=== PATIENT | male | born 1970 | race Caucasian/White ===

== ENCOUNTER 2017-09-04 12:09 | Emergency (ER) | payer SELFPAY ==
[2017-09-04 12:59] LABS: Absolute Lymphocytes (CBC) 2.1 K/uL (0.7-4.9); Absolute Monocytes 0.3 K/uL (0.1-1.3); Absolute Neutrophil 2.1 K/uL (1.8-8.0); Basophils % 0.8 % (0-1.3); Eosinophils % 0.9 % (0-4.4); Hematocrit 48.8 % (39.6-49.0); Lymphocytes % 45.4 % (15.3-44.8); MCH 28.4 pg (27.0-35.0); MCV 84.3 fL (80-100); MPV 8.1 fL (7.6-11.3); Monocytes % 7.2 % (3.3-12.3); RBC Red Blood Cell Count 5.79 M/uL (4.33-5.43)
[2017-09-04 13:16] LABS: Bicarbonate 27 mEq/L (21-31); Glucose Level 289 mg/dL (65-120); Lipase 19 U/L (22-51); Potassium 3.8 mEq/L (3.6-5.0); Sodium Level 134 mEq/L (135-145)
[2017-09-04 13:22] LABS: ALT/SGPT 37 IU/L (10-60); AST/SGOT 19 IU/L (10-42); Albumin 4.1 g/dL (3.2-5.5); Alkaline Phosphatase 71 IU/L (42-121); BUN Blood Urea Nitrogen 13 mg/dL (6-20); Bilirubin Direct 0.2 mg/dL (0-0.2); Bilirubin Total 1.2 mg/dL (0.3-1.2); Creatine Phosphokinase 78 IU/L (22-269); Protein, Total 7.3 g/dL (6.0-8.3)
[2017-09-04 13:24] LABS: CKMB Creatine Kinase MB 2.1 ng/ml (0.3-4.0)
--- NOTE | 2017-09-04 13:38 | RAD REPORT ---
EXAM DESCRIPTION: RAD - Chest Single View - 09/04/2017 1:31 pm CLINICAL HISTORY: Chest pain. COMPARISON: None. FINDINGS: Portable technique limits examination quality. The lungs are grossly clear. The heart is normal in size. No displaced fractures. IMPRESSION: No acute intrathoracic process suspected.
--- NOTE | 2017-09-04 15:40 | EDPHYS ---
Physician Documentation [facility] Name: Eleazar Galvan Sr Age: 46 yrs Sex: Male : 1970 Arrival Date: 09/04/2017 Time: 12:10 Bed 18 Private MD: ED Physician Johnny Hansen HPI: 09/04 12:39 This 46 yrs old Male presents to ER via Ambulatory with complaints of rn Shortness Of Breath, Nausea, Chest Pain. 12:40 The patient or guardian reports chest pain that is located primarily in the substernal rn area. Onset: yesterday. The pain radiates to The chest pain is described as aching, sharp. Duration: The patient or guardian reports multiple episodes, that are intermittent. Modifying factors: The symptoms are alleviated by nothing. the symptoms are aggravated by nothing. Severity of pain: At its worst the pain was mild in the emergency department the pain is unchanged. The patient has experienced a previous episode. REports sharp/achy chest pain, since yesterday, radiates to left back, no tearing sensation, no fever/cough, + mild sob, assoc with nausea, states previous [place] in past, he doesn't recall what other [place] felt like. . Historical: - Allergies: 12:20 No Known Allergies; hb - Home Meds: 12:20 Metoprolol Tartrate Oral [Active]; Lisinopril Oral [Active]; Hydrochlorothiazide Oral hb [Active]; aspirin 81 mg Oral chew 1 tab once daily [Active]; Clonidine Oral [Active]; Plavix 75 mg Oral tab 1 tab once daily [Active]; - PMHx: 12:20 Myocardial infarction; hb - PSHx: 12:20 Heart stents; hb - Immunization history:: Adult Immunizations up to date. - Social history:: Smoking status: Patient/guardian denies using tobacco. - Family history:: not pertinent. - Hospitalizations: : No recent hospitalization is reported. ROS: 12:40 Constitutional: Negative for fever, chills, and weight loss, Eyes: Negative for injury, rn pain, redness, and discharge, Neck: Negative for injury, pain, and swelling, Cardiovascular: Negative for palpitations, and edema, Respiratory: Negative for cough, wheezing, and pleuritic chest pain, Abdomen/GI: Negative for abdominal pain, vomiting, diarrhea, and constipation, Back: Negative for injury and pain, MS/Extremity: Negative for injury and deformity, Skin: Negative for injury, rash, and discoloration, Neuro: Negative for headache, weakness, numbness, tingling, and seizure. Exam: 12:40 Constitutional: This is a well developed, well nourished patient who is awake, alert, rn and in no acute distress. Pt sleeping when I arrived. Head/Face: Normocephalic, atraumatic. Eyes: Pupils equal round and reactive to light, extra-ocular motions intact. Lids and lashes normal. Conjunctiva and sclera are non-icteric and not injected. Cornea within normal limits. Periorbital areas with no swelling, redness, or edema. Neck: Trachea midline, no thyromegaly or masses palpated, and no cervical lymphadenopathy. Supple, full range of motion without nuchal rigidity, or vertebral point tenderness. No Meningismus. Cardiovascular: Regular rate and rhythm with a normal S1 and S2. No gallops, murmurs, or rubs. Normal PMI, no JVD. No pulse deficits. Respiratory: Lungs have equal breath sounds bilaterally, clear to auscultation and percussion. No rales, rhonchi or wheezes noted. No increased work of breathing, no retractions or nasal flaring. Abdomen/GI: Soft, non-tender, with normal bowel sounds. No distension or tympany. No guarding or rebound. No evidence of tenderness throughout. Back: No spinal tenderness. No costovertebral tenderness. Full range of motion. Skin: Warm, dry with normal turgor. Normal color with no rashes, no lesions, and no evidence of cellulitis. MS/ Extremity: Pulses equal, no cyanosis. Neurovascular intact. Full, normal range of motion. Equal circumference. Neuro: Awake and alert, GCS 15, oriented to person, place, time, and situation. Cranial nerves II-XII grossly intact. Motor strength 5/5 in all extremities. Sensory grossly intact. Vital Signs: 12:20 BP 140 / 106; Pulse 86; Resp 16; Temp 98; Pulse Ox 100% on R/A; Weight 83.91 kg; Height hb 5 ft. 9 in. (175.26 cm); Pain 6/10; 13:30 BP 138 / 98; Pulse 60; Resp 18; Pulse Ox 100% on R/A; hj 14:17 BP 159 / 107; Pulse 61; Resp 18; Pulse Ox 100% on R/A; hj 14:21 BP 145 / 97; Pulse 65; Resp 18; Pulse Ox 100% on R/A; hj 16:19 BP 138 / 95; Pulse 66; Resp 18; Pulse Ox 100% on R/A; hj 12:20 Body Mass Index 27.32 (83.91 kg, 175.26 cm) hb MDM: 12:24 Patient medically screened. rn 15:35 Differential diagnosis: acute pericarditis, anxiety, costochondritis, esophagitis, rn gastritis, gastroesophageal reflux disease (GERD), pleurisy, pneumothorax. Data reviewed: vital signs, nurses notes, lab test result(s), EKG, radiologic studies, and as a result, I will discharge patient. Special discussion: Based on the patient's history, exam, and Dx evaluation, there is no indication for emergent intervention or inpatient Tx. It is understood by the patient/guardian that if the Sx's persist or worsen they need to return immediately for re-evaluation. I discussed with the patient/guardian in detail that at this point there is no indication for admission to the hospital. It is understood, however, that if the symptoms persist or worsen the patient needs to return immediately for re-evaluation. 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 . 09/04 12:30 Order name: Basic Metabolic Panel; Complete Time: 13: rn 09/04 12:30 Order name: BNP; Complete Time: : rn 09/04 12:30 Order name: CBC with Diff; Complete Time: : rn 09/04 12:30 Order name: Ckmb; Complete Time: : rn 09/04 12:30 Order name: CPK; Complete Time: : rn 09/04 12:30 Order name: LFT's; Complete Time: : rn 09/04 12:30 Order name: Troponin (emerg Dept Use Only); Complete Time: : rn 09/04 12:30 Order name: XRAY Chest (1 view); Complete Time: 13:45 rn 09/04 12:30 Order name: EKG; Complete Time: 12:30 rn 09/04 12:30 Order name: Cardiac monitoring; Complete Time: 12:34 rn 09/04 12:30 Order name: EKG - Nurse/Tech; Complete Time: 12:53 rn 09/04 12:30 Order name: IV Saline Lock; Complete Time: 12:53 rn 09/04 12:30 Order name: D-Dimer; Complete Time: 13:26 rn 09/04 12:30 Order name: Lipase; Complete Time: 13:26 rn 09/04 12:30 Order name: Labs collected and sent; Complete Time: 12:53 rn 09/04 12:30 Order name: O2 Per Protocol; Complete Time: 12:34 rn 09/04 12:30 Order name: O2 Sat Monitoring; Complete Time: 12:34 rn Administered Medications: No medications were administered Disposition: 09/04/17 15:39 Discharged to Home. Impression: Chest pain, unspecified, Hypertension. - Condition is Stable. - Discharge Instructions: Nonspecific Chest Pain, Hypertension. - Prescriptions for amlodipine 10 mg Oral tablet - take 1 tablet by ORAL route once daily; 60 tablet. Plavix 75 mg Oral Tablet - take 1 tablet by ORAL route once daily; 60 tablet. - Medication Reconciliation Form, Thank You Letter, Antibiotic Education, Prescription Opioid Use form. - Follow up: Private Physician; When: As needed; Reason: Recheck today's complaints, Re-evaluation by your physician. - Problem is new. - Symptoms have improved. Signatures: Dispatcher [employer] EDJohnny Bermudez MD MD rn Joaquin, Henry, RN RN hj Baxter, Heather, RN RN
--- NOTE | 2017-09-04 15:40 | ER ---
Nurse's Notes [facility] Name: Eleazar Galvan Sr Age: 46 yrs Sex: Male : 1970 Arrival Date: 09/04/2017 Time: 12:10 Bed 18 Private MD: Diagnosis: Chest pain, unspecified;Hypertension Presentation: 09/04 12:17 Presenting complaint: Left sided chest pain that radiates to left upper back, SOB, and hb nausea that started today at 1000 while in bed. Hx SC + stent placement 2016. Transition of care: patient was not received from another setting of care. Onset of symptoms was September 04, 2017 at 10:00. Care prior to arrival: None. 12:17 Method Of Arrival: Ambulatory hb 12:17 Acuity: AURELIA 3 hb Triage Assessment: 12:33 General: Appears in no apparent distress. uncomfortable, Behavior is calm, cooperative, hj appropriate for age. Respiratory: Reports shortness of breath Onset: The symptoms/episode began/occurred the patient has mild shortness of breath. Historical: - Allergies: 12:20 No Known Allergies; hb - Home Meds: 12:20 Metoprolol Tartrate Oral [Active]; Lisinopril Oral [Active]; Hydrochlorothiazide Oral hb [Active]; aspirin 81 mg Oral chew 1 tab once daily [Active]; Clonidine Oral [Active]; Plavix 75 mg Oral tab 1 tab once daily [Active]; - PMHx: 12:20 Myocardial infarction; hb - PSHx: 12:20 Heart stents; hb - Immunization history:: Adult Immunizations up to date. - Social history:: Smoking status: Patient/guardian denies using tobacco. - Family history:: not pertinent. - Hospitalizations: : No recent hospitalization is reported. Screenin:32 Abuse screen: Denies threats or abuse. Denies injuries from another. Nutritional hj screening: No deficits noted. Tuberculosis screening: No symptoms or risk factors identified. Fall Risk None identified. Assessment: 12:32 Pain: Complains of pain in chest Pain radiates to back. Cardiovascular: Rhythm is hj regular. Respiratory: Airway is patent Respiratory effort is even, unlabored, Respiratory pattern is regular, symmetrical, Breath sounds are clear. 13:30 Reassessment: Patient and/or family updated on plan of care and expected duration. Pain hj level reassessed. Patient is alert, oriented x 3, equal unlabored respirations, skin warm/dry/pink. Patient states feeling better. Patient states symptoms have improved. Vital Signs: 12:20 BP 140 / 106; Pulse 86; Resp 16; Temp 98; Pulse Ox 100% on R/A; Weight 83.91 kg; Height hb 5 ft. 9 in. (175.26 cm); Pain 6/10; 13:30 BP 138 / 98; Pulse 60; Resp 18; Pulse Ox 100% on R/A; hj 14:17 BP 159 / 107; Pulse 61; Resp 18; Pulse Ox 100% on R/A; hj 14:21 BP 145 / 97; Pulse 65; Resp 18; Pulse Ox 100% on R/A; hj 16:19 BP 138 / 95; Pulse 66; Resp 18; Pulse Ox 100% on R/A; hj 12:20 Body Mass Index 27.32 (83.91 kg, 175.26 cm) hb ED Course: 12:10 Patient arrived in ED. as 12:19 Triage completed. hb 12:20 Arm band placed on left wrist. hb 12:24 Johnny Hansen MD is Attending Physician. rn 12:32 Rafy Rodney, JEROME is Primary Nurse. hj 12:33 Patient has correct armband on for positive identification. Placed in gown. Bed in low hj position. Call light in reach. Side rails up X 1. Adult w/ patient. 12:45 Initial lab(s) drawn, by me, sent to lab. Inserted saline lock: 22 gauge in right hj antecubital area, using aseptic technique. Blood collected. 13:12 X-ray completed. Portable x-ray completed in exam room. Patient tolerated procedure kp1 well. 13:31 XRAY Chest (1 view) In Process Unspecified. EDMS 16:18 No provider procedures requiring assistance completed. IV discontinued, intact, hj bleeding controlled, No redness/swelling at site. Pressure dressing applied. Administered Medications: No medications were administered Outcome: 15:39 Discharge ordered by . rn 16:18 Discharged to home ambulatory. hj 16:18 Condition: stable 16:18 Discharge instructions given to patient, Instructed on discharge instructions, follow up and referral plans. medication usage, Demonstrated understanding of instructions, follow-up care, medications, Prescriptions given X 2. 16:19 Patient left the ED. hj Signatures: Dispatcher [employer] EDJazzmine Magaña as Hansen, Johnny, MD MD rn Rashaun, Rafy, RN RN Mary Alice Bishop RN RN Gris Mtz 1
--- NOTE | 2017-09-05 10:24 | EKG ---
Test Date: 2017-09-04 Test Time: 12:38:46 Bench Worker: JOSE MEASUREMENT RESULTS: Intervals: Rate: 56 NJ: 144 QRSD: 90 QT: 406 QTc: 391 Dozier: P: 2 NJ: 144 QRS: 5 T: -22 INTERPRETIVE STATEMENTS: Sinus bradycardia with sinus arrhythmia Inferior infarct, age undetermined Abnormal ECG No previous ECG available for comparison Electronically Signed On 09-05-17 10:23:31 CDT by Ulisses Alvarez
== END 2017-09-04 16:19 | disposition home or self-care (01) ==
LOC: ER 12:09
DX: I10 Essential (primary) hypertension (principal); I25.2 Old myocardial infarction; Z95.818 Presence of other cardiac implants and grafts; Z79.82 Long term (current) use of aspirin; Z79.01 Long term (current) use of anticoagulants
CPT/HCPCS: 36415; 71045; 80048; 80076; 82550; 82553; 83690; 83880; 84484; 85025; 85379; 93005; 99284

== ENCOUNTER 2023-06-06 11:21 | Inpatient (IN) | payer OTHER, SELFPAY ==
[2023-06-06 11:54] LABS: Absolute Lymphocytes (CBC) 1.1 K/uL (0.7-4.9); Hematocrit 37.9 % (39.6-49.0); Lymphocytes % 20.8 % (15.3-44.8); MCV 83.2 fL (80-100); MPV 7.6 fL (7.6-11.3); Platelets 233 thou/uL (152-406); RBC Red Blood Cell Count 4.55 M/uL (4.33-5.43)
[2023-06-06] MEDS ORDERED: LABETALOL 20 MG/4ML SYRINGE IV ONE (12:00)
[2023-06-06 12:14] LABS: Albumin 2.3 g/dL (3.4-5.0); Bilirubin Total 0.4 mg/dL (0.2-1.0); Potassium 4.1 mEq/L (3.5-5.1); Protein, Total 5.8 g/dL (6.4-8.2); Troponin High Sensitivity 52.1 pg/mL (<58.9)
--- NOTE | 2023-06-06 12:33 | ER ---
Nurse's Notes [facility] Name: Eleazar Galvan Sr Age: 52 yrs Sex: Male : 1970 Arrival Date: 06/06/2023 Time: 11:21 Bed 2 Private MD: Diagnosis: Heart failure, unspecified Presentation: 06/06 11:28 Chief complaint: Patient states: chest pressure, SOB, leg swelling. Coronavirus screen: aa5 shortness of breath. Ebola Screen: Patient denies travel to an Ebola-affected area in the 21 days before illness onset. Initial Sepsis Screen: Does the patient meet any 2 criteria? RR > 20 per min. HR > 90 bpm. Does the patient have a suspected source of infection? Yes:. Risk Assessment: Do you want to hurt yourself or someone else? Patient reports no desire to harm self or others. Onset of symptoms was June 06, 2023. 11:28 Acuity: AURELIA 2 aa5 11:28 Method Of Arrival: EMS: [facility] aa5 Historical: - Allergies: 11:55 No Known Allergies; aa5 - PMHx: 11:30 diabetes mellitus; Hypertensive disorder; Myocardial infarction; Stents x 2; aa5 11:55 CHF; Legally blind; aa5 Screenin:00 [facility] ED Fall Risk Assessment (Adult) History of falling in the last 3 months, aa5 including since admission No falls in past 3 months (0 pts) Confusion or Disorientation No (0 pts) Intoxicated or Sedated No (0 pts) Impaired Gait Yes (1 pt) Mobility Assist Device Used No (0 pt) Altered Elimination No (0 pt) Score/Fall Risk Level 0 - 2 = Low Risk Oriented to surroundings, Maintained a safe environment, Educated pt \\T\\ family on fall prevention, incl call for assistance when getting out of bed. Abuse screen: Denies threats or abuse. Nutritional screening: No deficits noted. Tuberculosis screening: No symptoms or risk factors identified. Assessment: 11:30 General: Appears uncomfortable, Behavior is calm, cooperative. Pain: Complains of pain aa5 in chest,right leg, left leg, and scrotum Pain does not radiate. Pain currently is 6 out of 10 on a pain scale. Quality of pain is described as pressure, Pain began "a while ago but getting worse" Is continuous. Neuro: Level of Consciousness is awake, alert, obeys commands, Oriented to person, place, time, situation. Cardiovascular: Heart tones S1 S2 present 3+ pitting edema noted to emeka legs. Rhythm is sinus tachycardia. Respiratory: Reports shortness of breath on exertion Airway is patent Respiratory effort is even, unlabored, Respiratory pattern is regular, symmetrical, tachypnea Breath sounds are diminished bilaterally. GI: Abdomen is round Bowel sounds present X 4 quads. Abd is soft and non tender X 4 quads. : Swelling noted on scrotum that is severe. EENT: No signs and/or symptoms were reported regarding the EENT system. Derm: Skin is dry, Skin is normal, Skin temperature is warm Emeka lower legs with multiple sores, dry skin, and scab tissue. No wounds noted to feet. Musculoskeletal: Swelling present in right leg, left leg, and feet. 12:05 Neuro: Level of Consciousness is awake, alert, obeys commands, Oriented to person, aa5 place, time, situation. Respiratory: Airway is patent Respiratory effort is even, unlabored, Respiratory pattern is regular, symmetrical. Derm: Skin is dry, Skin is normal, Skin temperature is warm. 12:48 Neuro: Level of Consciousness is awake, alert, obeys commands, Oriented to person, aa5 place, time, situation. Respiratory: Airway is patent Respiratory effort is even, unlabored, Respiratory pattern is regular, symmetrical. Derm: Skin is dry, Skin is normal, Skin temperature is warm. 13:40 Reassessment: Pt voided in urinal, pt got wet using the urinal, pt cleaned, removed aa5 soiled shorts, placed in clean gown, bed sheet changed. Pt now sitting up in bed, states no complaints at this time. . 15:00 Neuro: Level of Consciousness is awake, alert, obeys commands, Oriented to person, aa5 place, time, situation. Respiratory: Airway is patent Respiratory effort is even, unlabored, Respiratory pattern is regular, symmetrical. Derm: Skin is dry, Skin is normal, Skin temperature is warm. 15:00 Reassessment: Pt sitting up in bed eating, tolerating well. . aa5 15:10 Reassessment: unsuccessful attempt to call report to admitting nurse, nurse did not aa5 answer phone call, will attempt later. . 15:46 Reassessment: Unsuccessful attempt to call report to admitting nurse, nurse did not aa5 answer phone. . 16:00 Neuro: Level of Consciousness is awake, alert, obeys commands, Oriented to person, aa5 place, time, situation. Respiratory: Airway is patent Respiratory effort is even, unlabored, Respiratory pattern is regular, symmetrical. Derm: Skin is dry, Skin is normal, Skin temperature is warm. 16:25 Reassessment: Report given to JEROME Meza, Room 407. . aa5 17:00 Reassessment: Pt returned to ER via stretcher, accompanied by technician support engineer. Pt states "I aa5 couldn't get into the elevator to go upstairs, I am terrified of elevators and I just started shaking". Pt appears anxious, MD was notified. . 17:30 Neuro: Level of Consciousness is awake, alert, obeys commands, Oriented to person, aa5 place, time, situation. Respiratory: Airway is patent Respiratory effort is even, unlabored, Respiratory pattern is regular, symmetrical. Derm: Skin is dry, Skin is normal, Skin temperature is warm. 17:30 Reassessment: Anxiety has decreased significantly. . aa5 Vital Signs: 11:28 BP 161 / 117; Pulse 120; Resp 24 S; Temp 99.5(O); Pulse Ox 97% on R/A; aa5 12:05 BP 170 / 116; Pulse 110; Resp 22 S; Pulse Ox 96% on R/A; aa5 12:32 BP 152 / 101; Pulse 105; ec2 13:20 BP 151 / 110; Pulse 105; Resp 18 S; Pulse Ox 97% on R/A; aa5 14:30 BP 157 / 117; Pulse 103; Resp 19 S; Temp 98.3(O); Pulse Ox 97% on R/A; aa5 16:00 BP 155 / 106; Pulse 105; Resp 18 S; Pulse Ox 98% on R/A; aa5 17:10 BP 155 / 110; Pulse 110; Resp 20 S; Temp 98.3(O); Pulse Ox 99% on R/A; aa5 ED Course: 11:28 Patient arrived in ED. aa5 11:28 Arm band placed on. aa5 11:28 Patient has correct armband on for positive identification. Placed in gown. Bed in low aa5 position. Call light in reach. Side rails up X2. Client placed on continuous cardiac and pulse oximetry monitoring. NIBP monitoring applied. 11:29 Triage completed. aa5 11:30 Vicky Mohamud RN is Primary Nurse. aa5 11:34 Malachi Lopez MD is Attending Physician. ec2 11:46 Inserted saline lock: 20 gauge in left antecubital area, using aseptic technique. Blood ls5 collected. 12:31 XRAY Chest (1 view) In Process Unspecified. EDMS 12:33 Dong Gomez MD is Hospitalizing Provider. ec2 16:30 Patient admitted, IV remains in place. aa5 16:30 No provider procedures requiring assistance completed. Patient maintains SpO2 aa5 saturation greater than 95% on room air. Administered Medications: 12:05 Drug: Labetalol IV 10 mg IV at bolus once Route: IV; Rate: bolus; Site: left aa5 antecubital; 12:15 Follow up: Response: No adverse reaction aa5 12:48 Drug: Furosemide IVP 80 mg IVP once; give over 2 minutes Route: IVP; Site: left aa5 antecubital; 13:00 Follow up: Response: No adverse reaction aa5 17:10 Drug: diphenhydrAMINE IVP 50 mg IVP once; VO at 1700 Route: IVP; Site: left antecubital;aa5 17:25 Follow up: Response: No adverse reaction; Anxiety decreased aa5 17:10 Drug: Ativan IVP 1 mg IVP once; VO received at 1700 Route: IVP; Site: left antecubital; aa5 17:25 Follow up: Response: No adverse reaction; Anxiety decreased aa5 Medication: 16:30 VIS not applicable for this client. aa5 Output: 13:40 Urine: 100ml (Voided); Total: 100ml. aa5 16:00 Urine: 200ml (Voided); Total: 300ml. aa5 17:10 Urine: 200ml (Voided); Total: 500ml. aa5 Outcome: 12:33 Decision to Hospitalize by Provider. ec2 16:30 Admitted to Tele accompanied by tech, via stretcher, with chart, Report called to aa5 JEROME Meza 16:30 Condition: stable 16:30 Instructed on the need for admit, Demonstrated understanding of instructions, 17:30 Patient left the ED. aa5 17:30 Condition: Pt transported to Room 407 via stretcher, accompanied by me and technician support engineer, pt aa5 tolerated going up the elevator well, appeared calm, pt was verbally reassured during transport by me. Signatures: Dispatcher [employer] Vicky Thomson, RN RN aa5 Yosef Laura ls5 Malachi Lopez MD MD ec2 Corrections: (The following items were deleted from the chart) 18:21 17:46 Patient left the ED. aa5 aa5 18:23 17:30 Patient left the ED. aa5 aa5
--- NOTE | 2023-06-06 12:33 | EDPHYS ---
Physician Documentation [facility] Name: Eleazar Galvan Sr Age: 52 yrs Sex: Male : 1970 Arrival Date: 06/06/2023 Time: 11:21 Bed 2 Private MD: ED Physician Malachi Lopez HPI: 06/06 11:36 This 52 yrs old [place] Male presents to ER via EMS with complaints of Chest Pressure, ec2 Leg Swelling. 11:36 Patient arrives today for shortness of breath as well as leg swelling. Patient reports ec2 a history of CHF, history of cardiac arrest, history of CAD, states that he has not taken any of his medications for the past approximately 10 months. Patient reports that his legs have gotten progressively more swollen and edematous. Patient reports no nausea or vomiting, denies any fevers. Patient reports he also has scrotal swelling.. Historical: - Allergies: 11:55 No Known Allergies; aa5 - PMHx: 11:30 diabetes mellitus; Hypertensive disorder; Myocardial infarction; Stents x 2; aa5 11:55 CHF; Legally blind; aa5 ROS: 11:36 Constitutional: as per hpi ec2 Exam: 11:36 Constitutional: GEN: NAD Head: atraumatic Eyes: EOMI Ears: External ears are ec2 normal. CV: Tachycardia, bilateral lower extremity edema, edema tracks from the lower extremities up to the lower sacrum including the scrotum LUNGS: Slight tachypnea noted ABD: non-distended SKIN: Skin breakdown noted to the bilateral lower extremities, no erythema or warmth appreciated. MSK: no evidence of trauma NEURO: moves all extremities equally Vital Signs: 11:28 BP 161 / 117; Pulse 120; Resp 24 S; Temp 99.5(O); Pulse Ox 97% on R/A; aa5 12:05 BP 170 / 116; Pulse 110; Resp 22 S; Pulse Ox 96% on R/A; aa5 12:32 BP 152 / 101; Pulse 105; ec2 13:20 BP 151 / 110; Pulse 105; Resp 18 S; Pulse Ox 97% on R/A; aa5 14:30 BP 157 / 117; Pulse 103; Resp 19 S; Temp 98.3(O); Pulse Ox 97% on R/A; aa5 16:00 BP 155 / 106; Pulse 105; Resp 18 S; Pulse Ox 98% on R/A; aa5 17:10 BP 155 / 110; Pulse 110; Resp 20 S; Temp 98.3(O); Pulse Ox 99% on R/A; aa5 MDM: 11:36 Patient medically screened. ec2 11:36 Data reviewed: vital signs. ED course: Patient arrives today for evaluation of ec2 shortness of breath and lower extremity edema. Examination remarkable for well-appearing nontoxic individual is otherwise in no acute distress. Will obtain lab work, EKG, chest x-ray for further assessment of the patient complaint. Currently considering volume overload, ACS, low suspicion for PE or dissection. Of note patient does meet SIRS criteria with the tachycardia and tachypnea documented, I have a low index of suspicion for acute infection, there is some skin breakdown noted in bilateral lower extremities however they did not appear cellulitic, will defer antimicrobial management, we will focus on volume status.. 11:45 ED course: EKG independently reviewed and interpreted by me, shows sinus tachycardia, ec2 rate 118, no acute ST segment elevations, intervals are nonconcerning, nonspecific T wave inversions noted in the inferior leads.. 12:32 ED course: CBC with no leukocytosis, BNP markedly elevated at over 11,000, metabolic ec2 profile with renal dysfunction with a creatinine of 1.55, troponin within normal ranges. Will admit for volume overload and diuresis. Will give the patient Lasix as well. . 06/06 11:35 Order name: CBC with Diff; Complete Time: 12:31 ec2 06/06 11:35 Order name: NT PRO-BNP; Complete Time: 12:31 ec2 06/06 11:35 Order name: Troponin HS; Complete Time: 12:31 ec2 06/06 11:35 Order name: CMP; Complete Time: 12:31 ec2 06/06 12:54 Order name: Urinalysis w/ reflexes EDMS 06/06 12:54 Order name: Basic Metabolic Panel EDNH 06/06 12:54 Order name: Basic Metabolic Panel EDMS 06/06 12:54 Order name: Basic Metabolic Panel EDMS 06/06 12:54 Order name: Basic Metabolic Panel EDMS 06/06 12:54 Order name: CBC with Automated Diff EDMS 06/06 12:54 Order name: CBC with Automated Diff EDMS 06/06 12:54 Order name: CBC with Automated Diff EDMS 06/06 12:54 Order name: CBC with Automated Diff EDMS 06/06 12:54 Order name: Magnesium EDMS 06/06 12:54 Order name: Magnesium EDMS 06/06 12:54 Order name: Magnesium EDMS 06/06 12:54 Order name: Magnesium EDMS 06/06 12:54 Order name: NT PRO-BNP EDMS 06/06 12:54 Order name: NT PRO-BNP EDMS 06/06 12:54 Order name: NT PRO-BNP EDMS 06/06 12:54 Order name: NT PRO-BNP EDMS 06/06 12:54 Order name: Troponin High Sensitivity EDMS 06/06 12:54 Order name: Troponin High Sensitivity EDMS 06/06 12:54 Order name: Troponin High Sensitivity EDMS 06/06 12:54 Order name: Troponin High Sensitivity EDMS 06/06 12:56 Order name: Hemoglobin A1c EDMS 06/06 12:56 Order name: Hemoglobin A1c EDMS 06/06 12:56 Order name: Lipid Profile EDMS 06/06 12:56 Order name: Lipid Profile EDMS 06/06 11:35 Order name: XRAY Chest (1 view) ec2 06/06 12:57 Order name: Echo with Doppler EDMS 06/06 12:57 Order name: Echo with Doppler EDMS 06/06 11:35 Order name: EKG; Complete Time: 11:36 ec2 06/06 12:51 Order name: CONS Physician Consult EDMS 06/06 12:54 Order name: EKG Electrocardiogram EDMS 06/06 12:54 Order name: EKG Electrocardiogram EDMS 06/06 11:35 Order name: Cardiac monitoring; Complete Time: 11:45 ec2 06/06 11:35 Order name: EKG - Nurse/Tech; Complete Time: 11:45 ec2 06/06 11:35 Order name: IV Saline Lock; Complete Time: 11:45 ec2 06/06 11:35 Order name: Labs collected and sent; Complete Time: 11:45 ec2 06/06 11:35 Order name: O2 Per Protocol; Complete Time: 11:45 ec2 06/06 11:35 Order name: O2 Sat Monitoring; Complete Time: 11:45 ec2 Administered Medications: 12:05 Drug: Labetalol IV 10 mg IV at bolus once Route: IV; Rate: bolus; Site: left aa5 antecubital; 12:15 Follow up: Response: No adverse reaction aa5 12:48 Drug: Furosemide IVP 80 mg IVP once; give over 2 minutes Route: IVP; Site: left aa5 antecubital; 13:00 Follow up: Response: No adverse reaction aa5 17:10 Drug: diphenhydrAMINE IVP 50 mg IVP once; VO at 1700 Route: IVP; Site: left antecubital;aa5 17:25 Follow up: Response: No adverse reaction; Anxiety decreased aa5 17:10 Drug: Ativan IVP 1 mg IVP once; VO received at 1700 Route: IVP; Site: left antecubital; aa5 17:25 Follow up: Response: No adverse reaction; Anxiety decreased aa5 Disposition Summary: 06/06/23 12:33 Hospitalization Ordered Notes: Hospitalization Status: Inpatient Admission ec2 Provider: Dong Gomez ec2 [facility] ec2 Condition: Stable ec2 Problem: an acute exacerbation ec2 Symptoms: are unchanged ec2 Bed/Room Type: Standard ec2 Room Assignment: 407(06/06/23 14:58) eb Diagnosis - Heart failure, unspecified ec2 Forms: - Medication Reconciliation Form ec2 - SBAR form ec2 - Leadership Thank You Letter ec2 Signatures: Dispatcher [employer] Vicky Thomson RN RN aa5 Kellen Gonzales Edwin, MD MD ec2 Corrections: (The following items were deleted from the chart) 14:58 12:33 ec2 eb
[2023-06-06] MEDS ORDERED: FUROSEMIDE 40 MG/4 ML VIAL ONE (12:47)
--- NOTE | 2023-06-06 12:48 | P.HP ---
Certification for Inpatient Patient History Date of Service: 06/06/23 History of Present Illness: 52-year-old male with a past medical history of diabetes, hypertension, [place], PCI x 2, congestive heart failure, legally blind presents to the emergency room with leg swelling, scrotal send swelling he reports history of congestive heart failure, not been on medications for the last 10 months. He reports swelling is progressively gotten worse over the last week. Reports mild associated chest pressure, is nonradiating, reports scrotal swelling that is progressively getting worse. Reports shortness of breath that is worse with talking and exertion. He denies cough, he denies dizziness, abdominal pain, fever, nausea vomiting diarrhea. Plan to admit for chest pain, acute on chronic chronic heart failure, anasarca, acute kidney injury, medication noncompliance, hypertensive urgency, ER evaluation EKG sinus tachycardia, rate 118, no acute ST segment elevations, intervals are nonconcerning, nonspecific T wave inversions noted in the inferior leads.. Laboratory evaluation no leukocytosis, microcytic anemia at 13.0, 37.9, acute on chronic kidney injury BUN 27 creatinine 1.55, elevated BNP 48937, troponin normal at 52.1 chest x-ray pending - Past Medical/Surgical History -: Congestive heart failure -: [place] history of 2 cardiac stents -: Hypertension -: Hyperlipidemia -: Diabetes -: Cardiac stents - Social History Smoking Status: Never smoker Alcohol use: No CD- Drugs: No Caffeine use: Yes Place of Residence: Home <Susan Mckeon - Last Filed: 06/06/23 15:22> Date of Service: 06/06/23 <Dong Gomez - Last Filed: 06/06/23 15:41> Allergies No Known Allergies Allergy (Unverified 09/04/17 16:23) Home Medications: Amlodipine [Norvasc*] 10 mg PO DAILY #30 tab 05/03/23 Aspirin 81 mg PO DAILY #30 tab.chew 05/03/23 Furosemide [Lasix] 40 mg PO DAILY #30 tab 05/03/23 Metoprolol Tartrate [Lopressor*] 25 mg PO BID 6AM 6PM #60 tab 05/03/23 levoFLOXacin [Levaquin] 750 mg PO DAILY #7 tab 05/03/23 Review of Systems per HPI <Susan Mckeon - Last Filed: 06/06/23 15:22> Physical Examination - Physical Exam General: Alert, In no apparent distress, Mild distress HEENT: Atraumatic, Normocephalic Neck: Supple, 2+ carotid pulse no bruit Respiratory: Crackles/rales Cardiovascular: Regular rate/rhythm, Edema (+3 LLE edema) Capillary refill: <2 Seconds Gastrointestinal: Soft and benign, Other (obese) Musculoskeletal: Swelling (BLE ), Erythema Integumentary: Venous stasis ulcer (Bilateral lower extremity anterior gayle venous stasis ulcers), Other Neurological: Normal speech, Other (Generalized weakness) External genitalia: Other (Scrotal edema) - Studies Laboratory Data (last 24 hrs) 06/06/23 06/06/23 11:42 11:42 WBC 5.40 Hgb 13.0 L Hct 37.9 L Plt Count 233 Sodium 141 Potassium 4.1 BUN 27 H Creatinine 1.55 H Glucose 84 Total Bilirubin 0.4 AST 21 ALT 29 Alkaline Phosphatase 68 <Susan Mckeon - Last Filed: 06/06/23 15:22> - Studies Laboratory Data (last 24 hrs) 06/06/23 06/06/23 11:42 11:42 WBC 5.40 Hgb 13.0 L Hct 37.9 L Plt Count 233 Sodium 141 Potassium 4.1 BUN 27 H Creatinine 1.55 H Glucose 84 Total Bilirubin 0.4 AST 21 ALT 29 Alkaline Phosphatase 68 <Dong Gomez - Last Filed: 06/06/23 15:41> Assessment and Plan - Plan Assessment plan acute on chronic heart failure Elevated BNP Hypertensive urgency Medication noncompliance ER evaluationEKG independently reviewed and interpreted by me, shows sinus tachycardia, rate 118, no acute ST segment elevations, intervals are nonconcerning, nonspecific T wave inversions noted in the inferior leads.. Laboratory evaluation no leukocytosis, Metoprolol p.o., IV as needed, as needed analgesics, antilipid Echo ordered for the a.m. Trend BNP elevated BNP 84640, Trend troponin troponin normal at 52.1 chest x-ray pending Daily weight, intake output, Bilateral lower extremity venous stasis ulcers Wound care consult Clindamycin IV microcytic anemia Hemoglobin 13.0, 37.9, Trend H&H Acute on chronic kidney injury Trend kidney function acute on chronic kidney injury BUN 27 creatinine 1.55, diabetes hypertension Lipid panel, A1c in the a.m. Accu-Cheks, sliding scale insulin History [place], PCI x 2, legally blind Full code N.p.o. after midnight DVT heparin Discharge Plan: Home - Advance Directives Does patient have a Living Will: No Does patient have a Durable POA for Healthcare: No - Code Status/Comfort Care Code Status: Full Code Critical Care: No Time Spent Managing Pts Care (In Minutes): 55 <Susan Mckeon - Last Filed: 06/06/23 15:22> - Plan Pt seen and examined. I agree withthe not shankar the PROCESS CONTROL BOARD OPERATOR. Pt is a 52 yo male with past medical history diabetes, hypertension, CAD s/p [place], PCI x 2, congestive heart failure, and legal blindness who presents to the emergency room with anasarca and leg wound. Pt reports that he ran out of his meds in july 2022 because he lost his insurance. He noticed worsening of the leg swelling and wound on his legs. His dog scratched his legs and worsened the leg wound. On admission, lab studies show WBC 5.4, K 4.1, Cr 1.55, BNP 82930, and troponin 52.1. At bedside, pt is in NAD. A/P: Volume overload / Anasarca: Luikely due to worsening CHF. Will continue lasix 40mg iv TID [place]: [place] [address]. Will continue lasix 40mg iv TID, BB, low salt diet, daily weight and strict I/O. Will follow up Echo [place]: cr is 1.55. Will avoid nephrotoxins and monitor renal function. Leg wound: Will continue clindamycin and follow up wound culture. Will continue wound care DM II: Continue accuchek, SSI and ADA diet Hx of CAD s/p [place] and PCI. Will continue home meds. Will check lipid panel. Obesity: Pt was advised to lose weight Legal blindness: Continue supportive care. DVT ppx: heparin Code: full <Dong Gomez - Last Filed: 06/06/23 15:41>
[2023-06-06] MEDS ORDERED: ALPRAZOLAM 0.25 MG TABLET PO PRN (12:49)
[2023-06-06] MEDS ORDERED: ACETAMINOPHEN 500 MG TAB PO PRN (12:49)
[2023-06-06] MEDS ORDERED: ONDANSETRON 4 MG/2 ML VIAL IV PRN (12:49)
[2023-06-06] MEDS ORDERED: METOPROLOL TARTRATE 5 MG/5 ML INJ IV PRN (12:52)
--- NOTE | 2023-06-06 13:03 | RAD REPORT ---
EXAM DESCRIPTION: RADChest Single View06/06/2023 12:29 pm CLINICAL HISTORY: sob, volume overload COMPARISON: Chest Single View dated 05/01/2023; Chest Single View dated 09/04/2017 TECHNIQUE: Portable AP view of the chest. FINDINGS: Progressive central bilateral fluffy opacities with up to moderate bilateral effusions now seen. No pneumothorax. The cardiomediastinal contours are unremarkable. IMPRESSION: Findings suggestive of pulmonary edema as above.
[2023-06-06] MEDS: INSULIN REGULAR (HUMAN) 100 UNIT/ML SQ SCH ×2 (16:30→20:08)
[2023-06-06] MEDS ORDERED: LORazepam 2 MG/ML VIAL ONE (16:58)
[2023-06-06] MEDS ORDERED: DIPHENHYDRAMINE 50 MG/ML VIAL ONE (16:58)
[2023-06-06] MEDS: HEPARIN 5000 UNIT/ML 1 ML VIAL SQ SCH (17:40)
[2023-06-06] MEDS: METOPROLOL TAR 25 MG TAB PO SCH (17:40)
[2023-06-06] MEDS: FUROSEMIDE 40 MG/4 ML VIAL IV SCH (17:40)
[2023-06-06] MEDS ORDERED: CLINDAMYCIN 900MG/D5W 900 MG/50 ML IVPB IV ONE ×2 (19:17→19:18)
[2023-06-06] MEDS: CLINDAMYCIN 900MG/D5W 900 MG/50 ML IVPB IV SCH (19:41)
[2023-06-07] MEDS: MORPHINE 4 MG/ML SYR IV PRN ×3 (00:08→18:08)
[2023-06-07] MEDS: FUROSEMIDE 40 MG/4 ML VIAL IV SCH ×3 (00:35→17:09)
[2023-06-07] MEDS: HEPARIN 5000 UNIT/ML 1 ML VIAL SQ SCH ×3 (00:36→17:09)
[2023-06-07] MEDS: CLINDAMYCIN 900MG/D5W 900 MG/50 ML IVPB IV SCH ×5 (02:06→17:10)
[2023-06-07 03:33] LABS: Absolute Lymphocytes (CBC) 1.4 K/uL (0.7-4.9); Hematocrit 34.8 % (39.6-49.0); Lymphocytes % 25.6 % (15.3-44.8); MCV 83.3 fL (80-100); MPV 7.5 fL (7.6-11.3); Platelets 220 thou/uL (152-406); RBC Red Blood Cell Count 4.17 M/uL (4.33-5.43)
[2023-06-07 03:49] LABS: Magnesium 1.7 mg/dL (1.6-2.4); Potassium 4.2 mEq/L (3.5-5.1); Troponin High Sensitivity 58.2 pg/mL (<58.9)
[2023-06-07] MEDS: METOPROLOL TAR 25 MG TAB PO SCH ×2 (05:23→17:10)
[2023-06-07 07:14] LABS: Urine Bacteria None Seen /HPF (<20); Urine Bilirubin NEGATIVE (Negative); Urine Blood 1+ (Negative); Urine Clarity Turbid (Clear); Urine Color Light-Yellow (Yellow); Urine Glucose NEGATIVE (Negative); Urine Mucus Slight /HPF (None Seen); Urine Protein 2+ (Negative); Urine RBC <5 /HPF (None Seen); Urine Sperm Present (None Seen); Urine Urobilinogen Normal (Normal); Urine pH 5.5 (5.0-7.0)
[2023-06-07] MEDS: INSULIN REGULAR (HUMAN) 100 UNIT/ML SQ SCH ×4 (07:30→20:00)
[2023-06-07] MEDS: ASPIRIN 81 MG CHEWABLE TABLET PO SCH (08:28)
[2023-06-07] MEDS: AMLODIPINE 10 MG TAB PO SCH (08:28)
[2023-06-07] MEDS ORDERED: MAGNESIUM SULFATE 1 gm IVPB 1 GM/100 ML BAG IV ONE (09:00)
--- NOTE | 2023-06-07 09:17 | P.PN ---
Subjective Date of Service: 06/07/23 He reports shortness of breath with exertion, shortness of breath worse when lying flat, he reports chest pain is substernal 4 out of 10 better and nonradiating. Physical Exam General: Alert, In no apparent distress, Mild distress HEENT: Atraumatic, Normocephalic Neck: Supple, 2+ carotid pulse no bruit Respiratory: Crackles/rales Cardiovascular: Regular rate/rhythm, Edema (+3 LLE edema) Capillary refill: <2 Seconds Gastrointestinal: Soft and benign, Other (obese) Musculoskeletal: Swelling (BLE ), Erythema Integumentary: Venous stasis ulcer (Bilateral lower extremity anterior gayle venous stasis ulcers), Other Neurological: Normal speech, Other (Generalized weakness) External genitalia: Other (Scrotal edema) Review of Systems per HPI Physical Examination - Vital Signs Temperature: 97.6 F Blood Pressure: 141/90 Pulse: 108 Respirations: 16 Pulse Ox (%): 94 - Studies Laboratory Data (last 24 hrs) 06/06/23 06/06/23 11:42 11:42 WBC 5.40 Hgb 13.0 L Hct 37.9 L Plt Count 233 Sodium 141 Potassium 4.1 BUN 27 H Creatinine 1.55 H Glucose 84 Total Bilirubin 0.4 AST 21 ALT 29 Alkaline Phosphatase 68 Assessment And Plan - Plan Assessment plan acute on chronic heart failure Elevated BNP Hypertensive urgency Medication noncompliance EKG , shows sinus tachycardia, rate 118, no acute ST abnormality, evaluated/signed by Dr Carvajal Metoprolol p.o., IV as needed, as needed analgesics, antilipid Echo ordered for the a.m. Trend BNP elevated BNP 64189, ->44600 Trend troponin troponin normal at 52.1 repeat 54.4 chest x-ray FINDINGS: Progressive central bilateral fluffy opacities with up to moderate bilateral effusions now seen. No pneumothorax. The cardiomediastinal contours are unremarkable. IMPRESSION: Findings suggestive of pulmonary edema as above. Daily weight, intake output, Cardiac ECHO ordered Bilateral lower extremity venous stasis ulcers Bilateral lower extremity edema Wound care consult. Clindamycin IV Doppler ultrasound IMPRESSION: No sonographic evidence of left or right lower extremity deep venous thrombosis. microcytic anemia Hemoglobin 13.0, 37.9, ->12.0/34.8 Trend H&H Acute on chronic kidney injury Trend kidney function, nehp consulted acute on chronic kidney injury BUN 27 creatinine 1.55, ->BUN 30/cr 1.68 (on lasix for acute HF) diabetes hypertension Lipid panel, A1c in the a.m. Accu-Cheks, sliding scale insulin History [place], PCI x 2, legally blind Full code N.p.o. cardiac DVT heparin Discharge Plan: Home Critical Care: No Time Spent Managing PTS Care (In Minutes): 35
[2023-06-07] MEDS ORDERED: LORazepam 2 MG/ML VIAL IV ONE (10:32)
--- NOTE | 2023-06-07 11:30 | RAD REPORT ---
EXAM DESCRIPTION: US - Extrem Venous W Compress Gary - 06/07/2023 11:23 am CLINICAL HISTORY: BLE swelling Bilateral leg edema and swelling. COMPARISON: Extrem Venous W Compress Gary dated 05/01/2023 TECHNIQUE: Real-time sonographic interrogation of the left and right lower extremity deep venous sys tems was performed. FINDINGS: Normal compressibility, flow augmentation, phasic flow and spontaneous flow is identified in both the left and right lower extremity deep venous systems. IMPRESSION: No sonographic evidence of left or right lower extremity deep venous thrombosis.
--- NOTE | 2023-06-07 12:19 | EKG ---
Test Date: 2023-06-07 Test Time: 08:06:32 Finished Cloth Examiner: VICTORIA MEASUREMENT RESULTS: Intervals: Rate: 90 MA: 148 QRSD: 96 QT: 376 QTc: 459 [place]: P: 55 MA: 148 QRS: 54 T: 185 INTERPRETIVE STATEMENTS: Normal sinus rhythm T wave abnormality, consider anterolateral ischemia Abnormal ECG Compared to ECG 06/06/2023 11:40:43 Sinus tachycardia no longer present T-wave abnormality still present Possible ischemia still present Electronically Signed On 06-07-23 12:18:27 CLAY STRUCTURE BUILDER AND SERVICER by Cosmo Carvajal
--- NOTE | 2023-06-07 12:22 | EKG ---
Test Date: 2023-06-06 Test Time: 11:40:43 [employer]p [employer]: KOFI MEASUREMENT RESULTS: Intervals: Rate: 118 MA: 142 QRSD: 90 QT: 304 QTc: 426 [place]: P: 57 MA: 142 QRS: 52 T: 180 INTERPRETIVE STATEMENTS: Sinus tachycardia Possible Left atrial enlargement T wave abnormality, consider inferolateral ischemia Abnormal ECG Compared to ECG 05/01/2023 11:10:58 Sinus rhythm no longer present Prolonged QT interval no longer present T-wave abnormality still present Possible ischemia still present Electronically Signed On 06-07-23 12:19:42 TEXTILE STYLIST by Cosmo Carvajal
--- NOTE | 2023-06-07 14:30 | ECHO ---
HEIGHT: 5 ft 9 in WEIGHT: 235 lb 9.6 oz DATE OF STUDY: 06/07/[address]: Susan Mckeon 2-DIMENSIONAL: YES M.MODE: YES DOPPLER: YES COLOR FLOW: YES TDS: PORTABLE: YES DEFINITY: BUBBLE STUDY: DIAGNOSIS: ACUTE HEART FAILURE CARDIAC HISTORY: CATHERIZATION: SURGERY: PROSTHETIC VALVE: PACEMAKER: MEASUREMENTS (cm) DIASTOLIC (NORMALS) SYSTOLIC (NORMALS) IVSd 1.3 (0.6-1.2) LA Diam 4.1 (1.9-4.0) LVEF 40-45% LVIDd 5.3 (3.5-5.7) LVIDs 5.0 (2.0-3.5) %FS LVPWd 1.5 (0.6-1.2) Ao Diam 3.3 (2.0-3.7) 2 DIMENSIONAL ASSESSMENT: RIGHT ATRIUM: NORMAL LEFT ATRIUM: ENLARGED RIGHT VENTRICLE: NORMAL LEFT VENTRICLE: DEPRESSED EJECTION FRACTION TRICUSPID VALVE: MILD TRICUSPID REGURGITATION MITRAL VALVE: MILD MITRAL REGURGITATION PULMONIC VALVE: MILD PULMONIC INSUFFICIENCY AORTIC VALVE: NORMAL PERICARDIAL EFFUSION: NONE AORTIC ROOT: NORMAL LEFT VENTRICULAR WALL MOTION: MILD GLOBAL HYPOKINESIS DOPPLER/COLOR FLOW: SEE BELOW COMMENTS: 1. MILDLY DEPRESSED LEFT VENTRICULAR EJECTION FRACTION 40-45% 2. MILD GLOBAL HYPOKINESIS 3. MODERATE DIASTOLIC DYSFUNCTION 4. LEFT ATRIAL ENLARGEMENT 5. MILD MITRAL REGURGITATION, TRICUSPID REGURGITATION, PULMONIC INSUFFICIENCY 6. RIGHT VENTRICULAR SYSTOLIC PRESSURE IS NORMAL, LESS THAN 25 mmHg TECHNOLOGIST: NOLA DOMINGUEZ
[2023-06-07 15:26] VITALS: BMI 34.7
--- NOTE | 2023-06-07 20:01 | CON ---
Date of Consultation: 06/07/2023 Reason For Consultation: Chest pain and congestive heart failure. History Of Present Illness: A 52-year-old male, history of coronary artery disease, status post MIs, congestive heart failure, diabetes, legally blind, presented with significant lower extremity edema, scrotal edema, shortness of breath on exertion, and chest pain. Denies having any nausea, vomiting, or diarrhea. No other complaints. Past Medical History: As outlined above in the HPI. Medications: Refer to reconciliation sheet for detailed list. Allergies: NO KNOWN DRUG ALLERGIES. Family History: No premature coronary artery disease or cancer. Social History: He does not smoke or drink. Does not use any drugs. Review of Systems: All systems reviewed and they were negative except as mentioned in the HPI. Physical Examination: Vital Signs: Reviewed. Head and Neck: Pupils are equal, reactive to light. Intact eye movements. No JVD. No cervical lym phadenopathy. Neck is supple. Thyroid is not enlarged. Lungs: Clear to auscultation bilaterally. No rhonchi, rales, or crackles. No accessory muscle use. Heart: Regular rate and rhythm. No extra sounds. Abdomen: Soft, nontender. Bowel sounds positive. No organomegaly. No masses or hernia. No rigidi ty or rebound. Extremities: Edema bilaterally. No clubbing, cyanosis. Skin: No rash. Neurologic: Alert, awake, oriented x3. No acute focal deficits appreciated. Investigations: His troponin is negative and his creatinine is 1.68, BUN is 30. Assessment And Recommendation: 1.Congestive heart failure with generalized edema. Does not have much of shortness of breath. Obta in an echo and gentle diuresis is recommended and carefully monitor BUN, creatinine, electrolytes. 2.Chest pain and borderline troponin elevation. Obtain an echo and exercise nuclear stress test to further evaluate. SR/MODL Voice ID: [id number] Report ID: [id number]
[2023-06-08] MEDS: FUROSEMIDE 40 MG/4 ML VIAL IV SCH ×3 (00:03→17:49)
[2023-06-08] MEDS: HEPARIN 5000 UNIT/ML 1 ML VIAL SQ SCH ×3 (00:04→17:48)
[2023-06-08] MEDS: CLINDAMYCIN 900MG/D5W 900 MG/50 ML IVPB IV SCH ×3 (01:15→17:48)
[2023-06-08] MEDS: MORPHINE 4 MG/ML SYR IV PRN ×3 (01:53→20:31)
--- NOTE | 2023-06-08 02:37 | CON ---
Date of Consultation: 06/07/2023 Chief Complaint: Abnormal renal function test. The patient was found to have acute on chronic kidne y injury and the Nephrology consultation is requested. BUN on arrival to the hospital was 27 and cre atinine level 1.55. History Of Present Illness: The patient is a 52-year-old man with past medical history significant f or diabetes mellitus, hypertension, coronary artery disease, acute myocardial infarction, , congestive heart failure. The patient is legally blind and presented to the hospital because of leg swelling anasarca. Patient has history of congestive heart failure. He has not been on medication for at least 10 months. He reports swelling which was progressively worse over last week. The patient reports that he had mild chest congestion, chest pressure. The pain was not radiating. He reports scrotal swelling and difficulty with ambulation due to severe lymphedema. He is undergo ing workup to rule out DVT. Past Medical History: Congestive heart failure, myocardial infarction, history of 2 cardiac stents, coronary artery disease, hypertension, hyperlipidemia, diabetes mellitus, chronic kidney disease stag e 3, baseline creatinine level, on previous occasion was up to 1.4 and 2 years ago was 0.9. Social History: Never smoked. Denies alcohol. Denies tobacco. Caffeine use, yes. Review of Systems: Constitutional: Denies fever, chills. Eyes: Denies new changes. The patient is legally blind. Ears, Nose, and Throat: Denies sore throat, earache. Respiratory: Has shortness of breath with light activities, although he is bedbound due to edema. D enies syncope. GI: Denies nausea, vomiting. : Denies dysuria, hematuria. Extremities: Have severe edema and progressively worse over last several days. Neurologic: Denies unilateral weakness. Denies tremor. Physical Examination: General: Alert, not in apparent distress. HEENT: Atraumatic, normocephalic. The patient is legally blind. Neck: Supple. Respiratory: Crackles present bilaterally at bases. Heart: S1, S2. No pericardial friction rub. Extremities: Edema, anasarca 3+. Abdomen: Soft, benign, nontender. Skin: Warm and dry. Dressing in place over lower extremities. Laboratory Work: WBC 5.4, hemoglobin 13, platelet count 233,000. Sodium 141, potassium 4.1, BUN 27, creatinine 1.55, glucose 84, total bilirubin 0.4, AST 21, ALT 29. Impression And Plan: 1.Elevated BUN and creatinine. The patient has cardiorenal syndrome. 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 Workup is pending and echo was ordered. Cardiology consultation is obtained. Jean-Claude santos will be rule out for acute coronary syndrome. There are no acute ST elevation, EKG changes. E lectrolytes stable. Patient will continue diuretics. The patient has severe fluid overload, anasarc a, he needs to be rule out for nephrotic syndrome. Albumin level is pending. Continue daily weights and monitor intake and output. Adjust diuretic according to effect of medication. 2.Microcytic anemia. Hemoglobin is 13. Monitor hemoglobin level and check iron study. 3.Acute on chronic kidney injury. Check renal ultrasound to rule out hydronephrosis. Check urinaly sis and screen for proteinuria. The patient may need renal biopsy. There is significant proteinuria present. 4.Diabetes mellitus. Continue to monitor blood glucose, adjust insulin. 5.Acute on chronic kidney injury. Check CK level to rule out rhabdomyolysis. EB/MODL Voice ID: [id number] Report ID: [id number]
[2023-06-08] MEDS: METOPROLOL TAR 25 MG TAB PO SCH ×2 (05:01→17:49)
[2023-06-08 06:54] LABS: Absolute Lymphocytes (CBC) 1.5 K/uL (0.7-4.9); Hematocrit 36.6 % (39.6-49.0); Lymphocytes % 33.3 % (15.3-44.8); MCV 83.1 fL (80-100); MPV 7.9 fL (7.6-11.3); Platelets 233 thou/uL (152-406)
[2023-06-08 07:11] LABS: Uric Acid 9.9 mg/dL (3.5-7.2)
[2023-06-08 07:12] LABS: Magnesium 1.9 mg/dL (1.6-2.4); Potassium 4.3 mEq/L (3.5-5.1)
[2023-06-08] MEDS: INSULIN REGULAR (HUMAN) 100 UNIT/ML SQ SCH ×4 (07:14→20:31)
--- NOTE | 2023-06-08 07:54 | P.PN ---
Subjective Date of Service: 06/08/23 Chief Complaint: Heart failure He reports shortness of breath with exertion, shortness of breath worse when lying flat, he reports chest pain is substernal 4 out of 10 better and nonradiating. scheduled for stress test today Physical Exam General: Alert, In no apparent distress, Mild distress HEENT: Atraumatic, Normocephalic Neck: Supple, 2+ carotid pulse no bruit Respiratory: Crackles/rales Cardiovascular: Regular rate/rhythm, Edema (+2/3 LLE edema) Capillary refill: <2 Seconds Gastrointestinal: Soft and benign, Other (obese) Musculoskeletal: Swelling (BLE ), Erythema Integumentary: Venous stasis ulcer (Bilateral lower extremity anterior gayle venous stasis ulcers), Other Neurological: Normal speech, Other (Generalized weakness) External genitalia: Other (Scrotal edema) Review of Systems per HPI Physical Examination - Vital Signs Temperature: 97.1 F Blood Pressure: 161/99 Pulse: 95 Respirations: 18 Pulse Ox (%): 93 Assessment And Plan - Plan Assessment plan acute on chronic diastolic heart failure chest pain unspecified Elevated BNP Hypertensive urgency Medication noncompliance EKG , shows sinus tachycardia, rate 118, no acute ST abnormality, evaluated/signed by Dr Carvajal Metoprolol p.o., IV as needed, as needed analgesics, antilipid Echo ordered for the a.m. Trend BNP elevated BNP 96857, ->81584 Trend troponin troponin normal at 52.1 repeat 54.4 chest x-ray FINDINGS: Progressive central bilateral fluffy opacities with up to moderate bilateral effusions now seen. No pneumothorax. The cardiomediastinal contours are unremarkable. IMPRESSION: Findings suggestive of pulmonary edema as above. Daily weight, intake output, 06/06/23 Cardiac ECHO ordered 1. MILDLY DEPRESSED LEFT VENTRICULAR EJECTION FRACTION 40-45% 2. MILD GLOBAL HYPOKINESIS 3. MODERATE DIASTOLIC DYSFUNCTION 4. LEFT ATRIAL ENLARGEMENT 5. MILD MITRAL REGURGITATION, TRICUSPID REGURGITATION, PULMONIC INSUFFICIENCY 6. RIGHT VENTRICULAR SYSTOLIC PRESSURE IS NORMAL, LESS THAN 25 mmH Nuclear med stress test ordered IMPRESSION: Moderate mostly fixed perfusion defect involving the inferior left ventricular myocardium consistent with an infarct with mild simón-infarct ischemia Bilateral lower extremity venous stasis ulcers Bilateral lower extremity edema Wound care consult. Clindamycin IV Doppler ultrasound IMPRESSION: No sonographic evidence of left or right lower extremity deep venous thrombosis. microcytic anemia Hemoglobin 13.0, 37.9, ->12.0/34.8 Trend H&H Acute on chronic kidney injury Trend kidney function, nehp consulted acute on chronic kidney injury BUN 27 creatinine 1.55, ->BUN 30/cr 1.68 (on lasix for acute HF) Renal ultrasound ordered IMPRESSION: No gross abnormality displayed diabetes hypertension Lipid panel, A1c in the a.m. Accu-Cheks, sliding scale insulin History [place], PCI x 2, legally blind Full code N.p.o. cardiac DVT heparin Discharge Plan: Home - Code Status/Comfort Care Code Status: Full Code Critical Care: No Time Spent Managing PTS Care (In Minutes): 35
[2023-06-08] MEDS ORDERED: LORazepam 2 MG/ML VIAL IV ONE (08:00)
--- NOTE | 2023-06-08 08:14 | RAD REPORT ---
EXAM DESCRIPTION: US - Renal Ultrasound-Complete - 06/08/2023 12:34 am CLINICAL HISTORY: Acute renal failure COMPARISON: None FINDINGS: The right kidney measures 11 cm with a normal echotexture. The left kidney measures 9 cm with a normal echotexture. Evaluation of the left kidney is limited Hydronephrosis is not seen. No gross abnormality of bladder IMPRESSION: No gross abnormality displayed
[2023-06-08] MEDS ORDERED: REGADENOSON 0.4 MG/5 ML SYR IV ONE (08:57)
--- NOTE | 2023-06-08 10:08 | RAD REPORT ---
EXAM DESCRIPTION: NM - Rest Stress Cardiac Imaging - 06/08/2023 10:00 am CLINICAL HISTORY: Chest pain. COMPARISON: None. TECHNIQUE: The patient was administered 10.4 mCi of Tc 99m Sestamibi prior to resting SPECT imaging of the heart. The patient was then administered 31.6 mCi of Tc 99m Sestamibi following exercise or ph armacologic stress. Multiplanar SPECT images were reviewed. FINDINGS: Moderate area of diminished radiotracer uptake involves the inferior left ventricular myoc ardium on stress images. This demonstrates mild reaccumulation of radiotracer on rest sequences. The remainder of the left ventricular myocardium demonstrates normal radiotracer uptake on rest and s tress sequences The left ventricular ejection fraction equals 28% IMPRESSION: Moderate mostly fixed perfusion defect involving the inferior left ventricular myocardiu m consistent with an infarct with mild simón-infarct ischemia
[2023-06-08] MEDS: AMLODIPINE 10 MG TAB PO SCH (12:31)
[2023-06-08] MEDS: ASPIRIN 81 MG CHEWABLE TABLET PO SCH (12:31)
[2023-06-08] MEDS: MEDIHONEY 44 ML TOPICAL TUBE TOP SCH (12:32)
--- NOTE | 2023-06-08 16:31 | PN ---
Date of Progress Note: 06/08/2023 Subjective: Patient was admitted to the hospital with anasarca, acute kidney injury. Workup show ch ronic kidney disease secondary to diabetes, nephropathy with proteinuria, anasarca secondary to cardi orenal. Physical Examination: Vital Signs: Blood pressure 161/99, pulse of 95, afebrile. Patient has been diuresed, has good urin e output. Chest: Crackles bilateral. Heart: S1, S2. Regular. Abdomen: Soft, nontender. Extremities: +3 edema. Neurologic: Alert. No focality. Laboratory Data: Hemoglobin 12.6. Sodium 139, potassium 4.3, bicarb 29, BUN 32, creatinine 1.7. GF R 44. BNP 9000. Serum protein electrophoresis is still pending. Urinalysis: +2 protein. Current Medications: The patient is on include: 1.Aspirin. 2.Clindamycin. 3.Amlodipine 10 mg. 4.Metoprolol 5. 5.Metoprolol 25 b.i.d. 6.Ferrous sulfate 40. 7.Lasix 40 t.i.d. Assessment And Plan: 1.Acute kidney injury, normal size kidney, proteinuric secondary to diabetes nephropathy/cardiorenal , over volume. I am going to continue current diuresis. We will increase the Lasix to every 6 hours to establish better volume control and we will continue to monitor the patient. 2.Hypertension. Continue to utilize blood pressure for more diuresis. We will consider switching c alcium channel emma to hydralazine to avoid further worsening, swelling. 3.Congestive heart failure as by primary. BRITTON/NADIA Voice ID: [id number] Report ID: [id number]
[2023-06-09] MEDS: FUROSEMIDE 40 MG/4 ML VIAL IV SCH ×4 (01:06→17:25)
[2023-06-09] MEDS: HEPARIN 5000 UNIT/ML 1 ML VIAL SQ SCH ×3 (01:06→17:00)
[2023-06-09] MEDS: CLINDAMYCIN 900MG/D5W 900 MG/50 ML IVPB IV SCH ×3 (01:07→17:25)
[2023-06-09] MEDS: METOPROLOL TAR 25 MG TAB PO SCH ×2 (06:00→17:24)
[2023-06-09 06:36] LABS: Absolute Lymphocytes (CBC) 1.5 K/uL (0.7-4.9); Hematocrit 37.8 % (39.6-49.0); Lymphocytes % 29.3 % (15.3-44.8); MPV 7.7 fL (7.6-11.3); Platelets 240 thou/uL (152-406); RBC Red Blood Cell Count 4.56 M/uL (4.33-5.43)
[2023-06-09 07:25] LABS: Magnesium 1.7 mg/dL (1.6-2.4); Phosphorus 4.2 mg/dL (2.5-4.9); Potassium 4.3 mEq/L (3.5-5.1); Thyroid Stimulating Hormone 1.73 uIU/mL (0.358-3.740)
[2023-06-09] MEDS: INSULIN REGULAR (HUMAN) 100 UNIT/ML SQ SCH ×4 (07:30→19:16)
[2023-06-09] MEDS: ASPIRIN 81 MG CHEWABLE TABLET PO SCH (08:05)
[2023-06-09] MEDS: AMLODIPINE 10 MG TAB PO SCH (08:05)
[2023-06-09] MEDS: MORPHINE 4 MG/ML SYR IV PRN ×3 (08:06→19:43)
[2023-06-09] MEDS: MEDIHONEY 44 ML TOPICAL TUBE TOP SCH (08:10)
--- NOTE | 2023-06-09 08:35 | P.DS ---
Admission Date: 06/06/23 Discharge Date: 06/12/23 Disposition: ROUTINE DISCHARGE Discharge Condition: FAIR Reason for Admission: Heart failure Brief History of Present Illness: 52-year-old male with a past medical history of diabetes, hypertension, [place], PCI x 2, congestive heart failure, legally blind presents to the emergency room with leg swelling, scrotal send swelling he reports history of congestive heart failure, not been on medications for the last 10 months. He reports swelling is progressively gotten worse over the last week. Reports mild associated chest pressure, is nonradiating, reports scrotal swelling that is progressively getting worse. Reports shortness of breath that is worse with talking and exertion. He denies cough, he denies dizziness, abdominal pain, fever, nausea vomiting diarrhea. Plan to admit for chest pain, acute on chronic chronic heart failure, anasarca, acute kidney injury, medication noncompliance, hypertensive urgency, ER evaluation EKG sinus tachycardia, rate 118, no acute ST segment elevations, intervals are nonconcerning, nonspecific T wave inversions noted in the inferior leads.. Laboratory evaluation no leukocytosis, microcytic anemia at 13.0, 37.9, acute on chronic kidney injury BUN 27 creatinine 1.55, elevated BNP 48634, troponin normal at 52.1 chest x-ray pending Physical Exam General: Alert, In no apparent distress, Mild distress HEENT: Atraumatic, Normocephalic Neck: Supple, 2+ carotid pulse no bruit Respiratory: diminished Cardiovascular: Regular rate/rhythm, +2 Edema Capillary refill: <2 Seconds Gastrointestinal: Soft and benign, Other (obese) Musculoskeletal: Swelling (BLE ), Erythema Integumentary: Venous stasis ulcer (Bilateral lower extremity anterior gayle venous stasis ulcers), Other Neurological: Normal speech, Other (Generalized weakness) External genitalia: Other (Scrotal edema) Hospital Course: Patient presented with acute on chronic diastolic heart failure. Was noted to have elevated BNP, sinus tachycardia, acute on chronic kidney injury, chest pain. Was seen by Dr. Carvajal for cardiology consult. Was treated with IV amio darone, diuretics, as needed antihypertensives and antibiotics for lower extremity venous stasis ulcers. Condition improved with treatment plan. Stable for discharge with follow-up appointment cardiology. Resume home antihypertensives, diuretics medications . PROBLEM: GOAL: Clear understanding of disease process Assessment plan acute on chronic diastolic heart failure chest pain unspecified Elevated BNP Hypertensive urgency Medication noncompliance Need to follow-up with cardiology in 1 to 2 weeks Resume home antihypertensives, diuretics, Recommend daily weights, daily blood pressure checks Take blood pressure log to cardiology appointment Wrap Bilateral lower extremities, monitor for signs infection, fever, change in wound color or drainage Kidney disease Avoid nephrotoxic medications Follow-up with nephrology in 1 to 2 weeks Daily weights, take blood pressure and weight log to nephrology appointment. INSTRUCTIONS: Physician Discharge Instructions: -DC IV and DC home -Follow-up with PCP in 1 to 2 weeks -Please call Dr. Alcantar at [phone] if any questions regarding hospital stay -Please call nursing station at [phone] if any nursing or medication questions -Return to the emergency room if symptoms worsen Diet: ADA, low sodium Activity: Fall precautions Vital Signs/Physical Exam: Temp Pulse Resp BP Pulse Ox 97.4 F 94 H 18 150/98 H 99 06/09/23 04:00 06/09/23 04:00 06/09/23 04:00 06/09/23 04:00 06/09/23 04:00 Laboratory Data at Discharge: WBC 5.20 thou/uL (4.3-10.9) 06/09/23 06:13 Hgb 13.1 g/dL (13.6-17.9) L 06/09/23 06:13 Hct 37.8 % (39.6-49.0) L 06/09/23 06:13 Plt Count 240 thou/uL (152-406) 06/09/23 06:13 Sodium 139 mEq/L (136-145) 06/09/23 06:13 Potassium 4.3 mEq/L (3.5-5.1) 06/09/23 06:13 BUN 32 mg/dL (7-18) H 06/09/23 06:13 Creatinine 1.74 mg/dL (0.70-1.30) H 06/09/23 06:13 Glucose 104 mg/dL (74-106) 06/09/23 06:13 Uric Acid 9.9 mg/dL (3.5-7.2) H 06/08/23 05:57 Phosphorus 4.2 mg/dL (2.5-4.9) 06/09/23 06:13 Magnesium 1.7 mg/dL (1.6-2.4) 06/09/23 06:13 Total Bilirubin 0.4 mg/dL (0.2-1.0) 06/06/23 11:42 AST 21 U/L (15-37) 06/06/23 11:42 ALT 29 U/L (16-61) 06/06/23 11:42 Alkaline Phosphatase 68 U/L (45-117) 06/06/23 11:42 Triglycerides 66 mg/dL (<150) 06/07/23 03:11 Cholesterol 155 mg/dL (<200) 06/07/23 03:11 HDL Cholesterol 46 mg/dL (40-60) 06/07/23 03:11 Cholesterol/HDL Ratio 3.37 06/07/23 03:11 Home Medications: Furosemide [Lasix] 40 mg PO BIDL #60 tab 06/11/23 Hydralazine [Apresoline*] 25 mg PO BID #60 tab 06/11/23 Hydrocodone 5/APAP 325 [[place] 5/325*] 1 tab PO Q6HP PRN #30 tab 06/11/23 Medihoney [Medihoney Woundcare Gel*] 1 appl TOP DAILY #1 tube 06/11/23 Metoprolol Tartrate [Lopressor*] 25 mg PO BID 6AM 6PM #60 tab 06/11/23 Potassium Chloride [K-Dur] 10 meq PO BIDL #60 tab 06/11/23 New Medications: Hydralazine [Apresoline*] 25 mg PO BID #60 tab Potassium Chloride [K-Dur] 10 meq PO BIDL #60 tab Furosemide [Lasix] 40 mg PO BIDL #60 tab Metoprolol Tartrate [Lopressor*] 25 mg PO BID 6AM 6PM #60 tab Medihoney [Medihoney Woundcare Gel*] 1 appl TOP DAILY #1 tube Hydrocodone 5/APAP 325 [[place] 5/325*] 1 tab PO Q6HP PRN #30 tab PRN Reason: Pain Scale 5-7 (Moderate) Physician Discharge Instructions: PROBLEM: (Acute CHF, and Lymphedema) GOAL: Clear understanding of disease process INSTRUCTIONS: Please watch your salt intake to help reduce the swelling you have in your legs and scrotum. Diet: Low sodium Activity: Fall precautions Followup: Fariba Page MD [COURTESY - CAN ADMIT] - 1 Week NONE,NONE [Primary Care Provider] - 1 Week
--- NOTE | 2023-06-09 08:49 | P.PN ---
Subjective Date of Service: 06/09/23 Chief Complaint: Heart failure He reports shortness of breath with exertion, shortness of breath worse when lying flat, no reported chest pain. Physical Exam General: Alert, In no apparent distress, Mild distress HEENT: Atraumatic, Normocephalic Neck: Supple, 2+ carotid pulse no bruit Respiratory: Crackles/rales Cardiovascular: Regular rate/rhythm, Edema (+2/3 LLE edema) Capillary refill: <2 Seconds Gastrointestinal: Soft and benign, Other (obese) Musculoskeletal: Swelling (BLE ), Erythema Integumentary: Venous stasis ulcer (Bilateral lower extremity anterior gayle venous stasis ulcers), Other Neurological: Normal speech, Other (Generalized weakness) External genitalia: Other (Scrotal edema) Review of Systems per HPI Physical Examination - Vital Signs Temperature: 97.4 F Blood Pressure: 150/98 Pulse: 94 Respirations: 18 Pulse Ox (%): 99 Assessment And Plan - Plan Assessment plan acute on chronic diastolic heart failure chest pain unspecified Elevated BNP Hypertensive urgency Medication noncompliance EKG , shows sinus tachycardia, rate 118, no acute ST abnormality, evaluated/signed by Dr Carvajal Metoprolol p.o., IV as needed, as needed analgesics, antilipid Echo ordered for the a.m. Trend BNP elevated BNP 66909, ->[id number] Trend troponin troponin normal at 52.1 repeat 54.4 chest x-ray FINDINGS: Progressive central bilateral fluffy opacities with up to moderate bilateral effusions now seen. No pneumothorax. The cardiomediastinal contours are unremarkable. IMPRESSION: Findings suggestive of pulmonary edema as above. Daily weight, intake output, 06/06/23 Cardiac ECHO ordered 1. MILDLY DEPRESSED LEFT VENTRICULAR EJECTION FRACTION 40-45% 2. MILD GLOBAL HYPOKINESIS 3. MODERATE DIASTOLIC DYSFUNCTION 4. LEFT ATRIAL ENLARGEMENT 5. MILD MITRAL REGURGITATION, TRICUSPID REGURGITATION, PULMONIC INSUFFICIENCY 6. RIGHT VENTRICULAR SYSTOLIC PRESSURE IS NORMAL, LESS THAN 25 mmH Nuclear med stress test ordered IMPRESSION: Moderate mostly fixed perfusion defect involving the inferior left ventricular myocardium consistent with an infarct with mild simón-infarct ischemia Bilateral lower extremity venous stasis ulcers Bilateral lower extremity edema Wound care consult. Clindamycin IV Doppler ultrasound IMPRESSION: No sonographic evidence of left or right lower extremity deep venous thrombosis. microcytic anemia Hemoglobin 13.0, 37.9, ->12.0/34.8 Trend H&H Acute on chronic kidney injury Trend kidney function, neph consulted acute on chronic kidney injury BUN 27 creatinine 1.55, ->BUN 30/cr 1.68 - >32/1.79 (on lasix for acute HF) Renal ultrasound ordered IMPRESSION: No gross abnormality displayed diabetes hypertension Lipid panel, A1c in the a.m. Accu-Cheks, sliding scale insulin History [place], PCI x 2, legally blind Full code N.p.o. cardiac DVT heparin Discharge Plan: Home - Code Status/Comfort Care Code Status: Full Code Critical Care: No Time Spent Managing PTS Care (In Minutes): 35
--- NOTE | 2023-06-09 11:31 | TREADPHA ---
DX: CHEST PAIN Date of Study: 06/07/2023 Ht: 5' 9 " Wt: 237 lb 3.2 oz Consulting Physician: LESA MEDICATIONS: TYLENOL, XANAX, NORVASC, ASPIRIN CHEWABLE, CLEOCIN, LASIX, HEPARIN, NOVOLIN-R, LOPRESSOR, MORPHINE, ZOFRAN HISTORY: 52 YEAR OLD MALE WITH COMPLAINTS OF SHORTNESS OF BREATH, CHEST PAIN, TIGHTNESS. HISTORY OF DIABETES MELLITUS, HYPERTENSION, CORONARY ARTERY DISEASE, MYOCARDIAL INFARCTION. PATIENT DENIES ALLERGIES TO MEDICATIONS. PHYSICIAL EXAMINATION: RESTING B.P.: 146/99 RESTING H.R.: 103 RESTING EKG: NORMAL SINUS RHYTHM WITH ST DEPRESSION INFERIOR LEADS PROTOCOL: PHARMACOLOGIC EXERCISE TIME: 3:30 B.P. AT PEAK STRESS: 115/92 IMPRESSION: LEXISCAN INJECTED. CARDIOLITE INJECTED - SEE NUCLEAR MEDICINE REPORT. OCCASIONAL PREMATURE VENTRICULAR COMPLEXES NOTED. NO SUPRAVENTRICULAR TACHYCARDIA, VENTRICULAR TACHYCARDIA, PREMATURE ATRIAL COMPLEXES NOTED. PATIENT DENIES CHEST PAIN. NON-DIAGNOSTIC ELECTROCARDIOGRAM PART DUE TO ABNORMAL BASELINE.
--- NOTE | 2023-06-09 13:19 | PN ---
Date of Progress Note: 06/09/2023 Subjective: Patient was admitted to the hospital with anasarca, lymphedema. Patient is being on diu resis, responding very well. Physical Examination: Vital Signs: Blood pressure 150/98, pulse of 94. Chest: Clear to auscultation. Heart: S1, S2. Systolic murmur. Abdomen: Soft, nontender. Extremities: Lymphedema bilaterally with compression dressing. Laboratory Data: Hemoglobin 13.1. Sodium 139; potassium 4.3; bicarb 28; BUN 32; creatinine 1.7, edvin nding down. GFR 46. Calcium 8.5. Phosphorus 4.2, magnesium 1.7. TSH 1.7. PC ratio still pending. Current Medications: The patient is on include: 1.Amlodipine. 2.Metoprolol. 3.Lorazepam. 4.Lasix 40 q.6. Assessment And Plan: 1.Acute kidney injury secondary to cardiorenal, still on the over volume side. I am going to contin ue to diurese the patient to establish better volume control. 2.Obstructive uropathy has been ruled out. 3.We will follow up PC ratio. 4.Congestive heart failure with lymphedema. Patient is on room air currently. We will try to pavel nue optimizing fluid status for the patient. Given there is no pulmonary hypertension on the echocar diogram, I am going to go ahead and discontinue amlodipine to avoid worsening edema. 5.Peripheral edema. Hypothyroidism has been ruled out mostly secondary to cardiorenal, ejection fraction of 40%. We will optimize the fluid status. Discontinue calcium channel emma. BRITTON/NADIA Voice ID: [id number] Report ID: [id number]
[2023-06-10] MEDS: FUROSEMIDE 40 MG/4 ML VIAL IV SCH ×4 (01:15→18:19)
[2023-06-10] MEDS: CLINDAMYCIN 900MG/D5W 900 MG/50 ML IVPB IV SCH ×3 (01:15→17:42)
[2023-06-10] MEDS: HEPARIN 5000 UNIT/ML 1 ML VIAL SQ SCH ×3 (01:15→17:41)
[2023-06-10] MEDS: METOPROLOL TAR 25 MG TAB PO SCH ×2 (05:26→17:41)
[2023-06-10] MEDS: MORPHINE 4 MG/ML SYR IV PRN (05:57)
[2023-06-10] MEDS: INSULIN REGULAR (HUMAN) 100 UNIT/ML SQ SCH ×4 (07:30→20:39)
--- NOTE | 2023-06-10 08:02 | P.PN ---
Subjective Date of Service: 06/10/23 Chief Complaint: Heart failure He reports shortness of breath with exertion, shortness of breath worse when lying flat, no reported chest pain. Physical Exam General: Alert, In no apparent distress, Mild distress HEENT: Atraumatic, Normocephalic Neck: Supple, 2+ carotid pulse no bruit Respiratory: Crackles/rales Cardiovascular: Regular rate/rhythm, Edema (+2/3 LLE edema) Capillary refill: <2 Seconds Gastrointestinal: Soft and benign, Other (obese) Musculoskeletal: Swelling (BLE ), Erythema Integumentary: Venous stasis ulcer (Bilateral lower extremity anterior gayle venous stasis ulcers), Other Neurological: Normal speech, Other (Generalized weakness) External genitalia: Other (Scrotal edema) Review of Systems per HPI Physical Examination - Vital Signs Temperature: 97.3 F Blood Pressure: 156/95 Pulse: 86 Respirations: 20 Pulse Ox (%): 97 Assessment And Plan - Plan Assessment plan acute on chronic diastolic heart failure acute chest pain unspecified acute Elevated BNP acute Hypertensive urgency acute Medication noncompliance EKG , shows sinus tachycardia, rate 118, no acute ST abnormality, evaluated/signed by Dr Carvajal Metoprolol p.o., IV as needed, as needed analgesics, antilipid add p.o. hydralazine, increase metoprolol to 50 p.o. twice daily for uncontrolled hypertension Echo ordered for the a.m. Trend BNP elevated BNP 65779, ->[id number] Trend troponin troponin normal at 52.1 repeat 54.4 chest x-ray FINDINGS: Progressive central bilateral fluffy opacities with up to moderate bilateral effusions now seen. No pneumothorax. The cardiomediastinal contours are unremarkable. IMPRESSION: Findings suggestive of pulmonary edema as above. Daily weight, intake output, 06/06/23 Cardiac ECHO ordered 1. MILDLY DEPRESSED LEFT VENTRICULAR EJECTION FRACTION 40-45% 2. MILD GLOBAL HYPOKINESIS 3. MODERATE DIASTOLIC DYSFUNCTION 4. LEFT ATRIAL ENLARGEMENT 5. MILD MITRAL REGURGITATION, TRICUSPID REGURGITATION, PULMONIC INSUFFICIENCY 6. RIGHT VENTRICULAR SYSTOLIC PRESSURE IS NORMAL, LESS THAN 25 mmH Nuclear med stress test ordered IMPRESSION: Moderate mostly fixed perfusion defect involving the inferior left ventricular myocardium consistent with an infarct with mild simón-infarct ischemia Bilateral lower extremity venous stasis ulcers Bilateral lower extremity edema Wound care consult. Clindamycin IV Doppler ultrasound IMPRESSION: No sonographic evidence of left or right lower extremity deep venous thrombosis. microcytic anemia Hemoglobin 13.0, 37.9, ->12.0/34.8 Trend H&H Acute on chronic kidney injury acute Trend kidney function, neph consulted acute on chronic kidney injury BUN 27 creatinine 1.55, ->BUN 30/cr 1.68 - >32/1.79 (on lasix for acute HF) Renal ultrasound ordered IMPRESSION: No gross abnormality displayed diabetes hypertension Lipid panel, A1c in the a.m. Accu-Cheks, sliding scale insulin History [place], PCI x 2, legally blind Full code N.p.o. cardiac DVT heparin Discharge Plan: Home - Code Status/Comfort Care Code Status: Full Code Time Spent Managing PTS Care (In Minutes): 35
[2023-06-10] MEDS: MEDIHONEY 44 ML TOPICAL TUBE TOP SCH (08:30)
[2023-06-10] MEDS: ASPIRIN 81 MG CHEWABLE TABLET PO SCH (08:30)
[2023-06-10] MEDS: HYDRALAZINE HCL 25 MG TABLET PO SCH ×2 (08:30→20:39)
[2023-06-10 10:13] LABS: Albumin 2.4 g/dL (3.4-5.0); Bilirubin Total 0.6 mg/dL (0.2-1.0); Magnesium 1.8 mg/dL (1.6-2.4); Potassium 4.3 mEq/L (3.5-5.1); Protein, Total 6.2 g/dL (6.4-8.2)
[2023-06-10] MEDS: HYDROCODONE/APAP 5/325 MG TAB PO PRN ×2 (11:49→18:19)
[2023-06-10] MEDS ORDERED: FUROSEMIDE 40 MG/4 ML VIAL IV ONE (16:24)
--- NOTE | 2023-06-10 21:16 | PN ---
Date of Progress Note: 06/10/2023 Subjective: The patient was admitted to the hospital with anasarca, over volume, acute kidney injury secondary to cardiorenal. The patient is being on diuresis very well, responding very well. The kerri santos is still complaining of some leg swelling and scrotal swelling. Physical Examination: Vital Signs: Blood pressure 156/95, pulse of 86, afebrile. Chest: Clear to auscultation. Heart: S1, S2. Regular. Abdomen: Soft, nontender. Genitourinary: Scrotal swelling. Extremities: +3 edema with lymphedema. Laboratory Data: Hemoglobin 13.1. Sodium 140, potassium 4.3, bicarb 32, BUN 34, creatinine 1.8. Ca lcium 8.8, magnesium 1.8. Serum protein electrophoresis still pending. TSH 1.7. PC ratio is still pending. Current Medications: The patient is on include metoprolol 25 b.i.d., alprazolam, Tylenol, insulin, h ydrocodone, morphine. Assessment And Plan: 1.Acute kidney injury secondary to cardiorenal. Still the patient is on the over volume side. I am going to give extra dose of Lasix today, and we will follow up the patient. 2.Hypertension, controlled, optimal. Continue current treatment. We will utilize blood pressure fo r more diuresis. 3.Lymphedema and peripheral edema secondary to cardiorenal. We will optimize the fluid status as ab ove. 4.Hypernatremia, resolved. 5.Urinary tract infection. Continue treatment. BRITTON/NADIA Voice ID: [id number] Report ID: [id number]
[2023-06-11] MEDS: CLINDAMYCIN 900MG/D5W 900 MG/50 ML IVPB IV SCH ×3 (01:00→16:42)
[2023-06-11] MEDS: HEPARIN 5000 UNIT/ML 1 ML VIAL SQ SCH ×3 (01:00→16:41)
[2023-06-11] MEDS: FUROSEMIDE 40 MG/4 ML VIAL IV SCH ×4 (01:00→16:42)
[2023-06-11] MEDS: HYDROCODONE/APAP 5/325 MG TAB PO PRN ×3 (01:06→16:57)
[2023-06-11] MEDS: METOPROLOL TAR 25 MG TAB PO SCH ×2 (05:48→16:42)
[2023-06-11 07:12] LABS: Absolute Lymphocytes (CBC) 1.6 K/uL (0.7-4.9); Hematocrit 36.3 % (39.6-49.0); Lymphocytes % 33.1 % (15.3-44.8); MCV 82.8 fL (80-100); MPV 7.5 fL (7.6-11.3); Platelets 256 thou/uL (152-406); RBC Red Blood Cell Count 4.39 M/uL (4.33-5.43)
[2023-06-11 07:28] LABS: Albumin 2.3 g/dL (3.4-5.0); Bilirubin Total 0.5 mg/dL (0.2-1.0); Protein, Total 6.1 g/dL (6.4-8.2)
[2023-06-11] MEDS: INSULIN REGULAR (HUMAN) 100 UNIT/ML SQ SCH ×4 (07:30→20:31)
[2023-06-11] MEDS: HYDRALAZINE HCL 25 MG TABLET PO SCH ×2 (08:12→20:31)
[2023-06-11] MEDS: ASPIRIN 81 MG CHEWABLE TABLET PO SCH (08:12)
[2023-06-11] MEDS: MEDIHONEY 44 ML TOPICAL TUBE TOP SCH (08:13)
--- NOTE | 2023-06-11 08:15 | P.PN ---
Subjective Date of Service: 06/11/23 Chief Complaint: Heart failure He reports shortness of breath with exertion, shortness of breath worse when lying flat, no reported chest pain. Physical Exam General: Alert, In no apparent distress, HEENT: Atraumatic, Normocephalic Neck: Supple, 2+ carotid pulse no bruit Respiratory: Crackles/rales Cardiovascular: Regular rate/rhythm, Edema (+2/3 LLE edema) Capillary refill: <2 Seconds Gastrointestinal: Soft and benign, Other (obese) Musculoskeletal: Swelling (BLE ), Erythema Integumentary: Venous stasis ulcer (Bilateral lower extremity anterior gayle venous stasis ulcers), Other Neurological: Normal speech, Other (Generalized weakness) External genitalia: Other (Scrotal edema) Review of Systems per HPI Physical Examination - Vital Signs Temperature: 97.3 F Blood Pressure: 156/95 Pulse: 86 Respirations: 20 Pulse Ox (%): 97 Assessment And Plan - Plan Assessment plan acute on chronic diastolic heart failure acute chest pain unspecified acute Elevated BNP acute Hypertensive urgency acute Medication noncompliance EKG , shows sinus tachycardia, rate 118, no acute ST abnormality, evaluated/signed by Dr Carvajal Metoprolol p.o., IV as needed, as needed analgesics, antilipid add p.o. hydralazine, increase metoprolol to 50 p.o. twice daily for uncontrolled hypertension Echo ordered for the a.m. Trend BNP elevated BNP 86142, ->[id number] Trend troponin troponin normal at 52.1 repeat 54.4 chest x-ray FINDINGS: Progressive central bilateral fluffy opacities with up to moderate bilateral effusions now seen. No pneumothorax. The cardiomediastinal contours are unremarkable. IMPRESSION: Findings suggestive of pulmonary edema as above. Daily weight, intake output, 06/06/23 Cardiac ECHO ordered 1. MILDLY DEPRESSED LEFT VENTRICULAR EJECTION FRACTION 40-45% 2. MILD GLOBAL HYPOKINESIS 3. MODERATE DIASTOLIC DYSFUNCTION 4. LEFT ATRIAL ENLARGEMENT 5. MILD MITRAL REGURGITATION, TRICUSPID REGURGITATION, PULMONIC INSUFFICIENCY 6. RIGHT VENTRICULAR SYSTOLIC PRESSURE IS NORMAL, LESS THAN 25 mmH Nuclear med stress test ordered IMPRESSION: Moderate mostly fixed perfusion defect involving the inferior left v entricular myocardium consistent with an infarct with mild simón-infarct ischemia Bilateral lower extremity venous stasis ulcers Bilateral lower extremity edema Wound care consult. Clindamycin IV Doppler ultrasound IMPRESSION: No sonographic evidence of left or right lower extremity deep venous thrombosis. microcytic anemia Hemoglobin 13.0, 37.9, ->12.0/34.8-12.5/36.3 Trend H&H Acute on chronic kidney injury acute unknown baseline Trend kidney function, neph consulted acute on chronic kidney injury BUN 27 creatinine 1.55, ->BUN 30/cr 1.68 - >32/1.79 (on lasix for acute HF) Renal ultrasound ordered IMPRESSION: No gross abnormality displayed Morbid obesity diabetes hypertension Lipid panel, Accu-Cheks, sliding scale insulin History [place], PCI x 2, legally blind Full code N.p.o. cardiac DVT heparin Discharge Plan: Home - Code Status/Comfort Care Code Status: Full Code Critical Care: No Time Spent Managing PTS Care (In Minutes): 35
[2023-06-11] MEDS: LACTOBACILLUS/ACIDOPHILUS TAB PO SCH ×2 (12:03→20:31)
--- NOTE | 2023-06-11 15:41 | P.PN ---
Subjective Date of Service: 06/11/23 Chief Complaint: Heart failure Subjective: No new changes Physical Examination - Vital Signs Temperature: 98.1 F Blood Pressure: 162/100 Pulse: 100 Respirations: 18 Pulse Ox (%): 97 - Physical Exam General: Other (no acute distress) HEENT: Atraumatic, Normocephalic Neck: Supple Respiratory: Other (symmetric chest expansion) Cardiovascular: No rubs, No murmurs Gastrointestinal: Soft and benign, No rebound Musculoskeletal: Swelling Integumentary: No warmth Neurological: Normal speech, Normal tone Lymphatics: No axilla or inguinal lymphadenopathy Urinary: Other (no bladder distention) External genitalia: Deferred Rectal: Deferred Assessment And Plan - Plan 1. HOSEA 2/2 CRS1. On IV lasix. Convert to po bid dosing upon dc. 2. Hypertension, controlled. Continue current medication regimen. 3. Lymphedema and peripheral edema. Lasix as above 4. Hypernatremia, resolved. Monitor. 5. Urinary tract infection. Abx.
[2023-06-12] MEDS: FUROSEMIDE 40 MG/4 ML VIAL IV SCH ×3 (00:51→12:35)
[2023-06-12] MEDS: CLINDAMYCIN 900MG/D5W 900 MG/50 ML IVPB IV SCH ×2 (02:41→08:31)
[2023-06-12] MEDS: HEPARIN 5000 UNIT/ML 1 ML VIAL SQ SCH ×2 (02:41→08:31)
[2023-06-12] MEDS: HYDROCODONE/APAP 5/325 MG TAB PO PRN ×2 (02:49→08:33)
[2023-06-12] MEDS: METOPROLOL TAR 25 MG TAB PO SCH (06:00)
[2023-06-12 06:43] LABS: Absolute Lymphocytes (CBC) 1.7 K/uL (0.7-4.9); Hematocrit 36.6 % (39.6-49.0); MCV 82.6 fL (80-100); MPV 7.9 fL (7.6-11.3); Platelets 252 thou/uL (152-406); RBC Red Blood Cell Count 4.42 M/uL (4.33-5.43)
[2023-06-12 07:08] LABS: Albumin 2.3 g/dL (3.4-5.0); Bilirubin Total 0.4 mg/dL (0.2-1.0); Protein, Total 5.9 g/dL (6.4-8.2)
[2023-06-12] MEDS: INSULIN REGULAR (HUMAN) 100 UNIT/ML SQ SCH ×2 (07:30→11:30)
[2023-06-12] MEDS: HYDRALAZINE HCL 25 MG TABLET PO SCH (08:31)
[2023-06-12] MEDS: MEDIHONEY 44 ML TOPICAL TUBE TOP SCH (08:31)
[2023-06-12] MEDS: LACTOBACILLUS/ACIDOPHILUS TAB PO SCH (08:31)
[2023-06-12] MEDS: ASPIRIN 81 MG CHEWABLE TABLET PO SCH (08:31)
[2023-06-12 10:20] VITALS: O2SAT 100
[2023-06-12 11:02] VITALS: BP 162/100; TEMP 98.1
--- NOTE | 2023-06-12 12:19 | P.PN ---
Subjective Date of Service: 06/12/23 Chief Complaint: Heart failure today no overnight events Cr stable plan to discharge today cleared for discharge from nephrology point of view Physical exam General: Awake, NAD, obese HEENT: Atraumatic, Normocephalic Neck: Supple, no elevated JVD Respiratory: CTAB Cardiovascular: No rubs, No murmurs Gastrointestinal: Soft and benign, Non-distended Musculoskeletal:leg edema, wrapped A/P #. HOSEA 2/2 CRS1. On IV lasix. Cr stable #. Hypertension, controlled. Continue current medication regimen. #. Lymphedema and peripheral edema. Lasix as above #. Hypernatremia, resolved. Monitor. #. Urinary tract infection. Abx. Physical Examination - Vital Signs Temperature: 98.1 F Blood Pressure: 162/100 Pulse: 100 Respirations: 18 Pulse Ox (%): 97
[2023-06-12] MEDS ORDERED: LORazepam 2 MG/ML VIAL IV ONE (16:00)
[2023-06-13 15:03] LABS: Albumin, (SPE) 2.5 g/dL (3.8-4.8); Alpha-1-Globulins 0.4 g/dL (0.2-0.3); Alpha-2-Globulins 0.8 g/dL (0.5-0.9); Gamma Globulins 0.7 g/dL (0.8-1.7); INTERPRETATION REPORT
[2023-06-14 16:02] LABS: Beta Globulin 24 HR Urine 9 %; Gamma Globulin, 24hr Urine 4 %; Interpretation: REPORT; Protein/Crea Ratio in g 1031 mg/g creat (<100); Protein/Crea Ratio in mg 1.031 (<0.100); Urine Alpha-2-Globulins, 24 Hr 4 %; Urine PEP Abn Protein Band1 REPORT; Urine Total Volume 24 Hours 2425 mL
== END 2023-06-12 17:23 | disposition home or self-care (01) | DRG 291 ==
LOC: ER 11:21 → ERHOLD 13:34 → 4TH 16:30
PROVIDERS: ADMIT Hospitalist; ATTEND Hospitalist
DX: I13.0 Hypertensive heart and chronic kidney disease with heart failure and stage 1 through stage 4 chronic kidney disease, or unspecified chronic kidney disease (principal); I50.33 Acute on chronic diastolic (congestive) heart failure; N17.9 Acute kidney failure, unspecified; E87.0 Hyperosmolality and hypernatremia; N39.0 Urinary tract infection, site not specified; N18.30 Chronic kidney disease, stage 3 unspecified; E11.22 Type 2 diabetes mellitus with diabetic chronic kidney disease; D63.1 Anemia in chronic kidney disease; D50.9 Iron deficiency anemia, unspecified; N50.89 Other specified disorders of the male genital organs; H54.8 Legal blindness, as defined in USA; I16.0 Hypertensive urgency; E78.5 Hyperlipidemia, unspecified; E66.01 Morbid (severe) obesity due to excess calories; I83.009 Varicose veins of unspecified lower extremity with ulcer of unspecified site; I25.10 Atherosclerotic heart disease of native coronary artery without angina pectoris; I25.2 Old myocardial infarction; Z95.5 Presence of coronary angioplasty implant and graft; Z68.32 Body mass index [BMI] 32.0-32.9, adult; Z79.82 Long term (current) use of aspirin; Z79.899 Other long term (current) drug therapy; Z91.148 Patient's other noncompliance with medication regimen for other reason
CPT/HCPCS: 36415; 71045; 76770; 78452; 80048; 80053; 80061; 81001; 82550; 82947; 83036; 83735; 83880; 84100; 84165; 84166; 84443; 84484; 84550; 85025; 86021; 87070; 87077; 87186; 87205; 93005; 93017; 93306; 93970; 94760; 96374; 96375; 99285; A9500; J1200; J1644; J1815; J1940; J2785; J3475

== ENCOUNTER 2023-07-18 14:19 | Inpatient (IN) | payer OTHER, SELFPAY ==
--- NOTE | 2023-07-18 16:13 | RAD REPORT ---
EXAM DESCRIPTION: RAD - Chest Single View - 07/18/2023 3:57 pm CLINICAL HISTORY: DYSPNEA COMPARISON: Chest Single View dated 06/06/2023; Chest Single View dated 05/01/2023; Chest Single View d ated 09/04/2017 FINDINGS: Lines: None. Lungs: Pulmonary edema likely less pronounced than on the prior chest radiograph. Pleural: Small left pleural effusion. Small right effusion difficult to exclude . Cardiac: Mild cardiomegaly . Mediastinum: Within normal limits. Bones: No acute fractures. Other: None IMPRESSION: Pulmonary edema with small left pleural effusion. .
[2023-07-18 17:27] LABS: Absolute Lymphocytes (CBC) 1.3 K/uL (0.7-4.9); Hematocrit 38.2 % (39.6-49.0); Lymphocytes % 24.1 % (15.3-44.8); MCV 85.1 fL (80-100); Platelets 191 thou/uL (152-406); RBC Red Blood Cell Count 4.49 M/uL (4.33-5.43)
[2023-07-18 17:37] LABS: Protime INR 1.07
[2023-07-18 17:54] LABS: Albumin 2.1 g/dL (3.4-5.0); Bilirubin Direct 0.1 mg/dL (0-0.2); Bilirubin Indirect, Calculated 0.4 mg/dL (0.2-0.8); Bilirubin Total 0.5 mg/dL (0.2-1.0); Magnesium 1.7 mg/dL (1.6-2.4); Potassium 4.9 mEq/L (3.5-5.1); Protein, Total 5.8 g/dL (6.4-8.2)
[2023-07-18 17:56] LABS: Troponin High Sensitivity 75.2 pg/mL (<58.9)
--- NOTE | 2023-07-18 18:31 | RAD REPORT ---
EXAM DESCRIPTION: CTAbdomen Pelvis Wo Contrast - 07/18/2023 6:21 pm CLINICAL HISTORY: edama, scrotal swelling COMPARISON: Chest Single View dated 07/18/2023; Renal Ultrasound-Complete dated 06/08/2023 TECHNIQUE: CT of the abdomen and pelvis was performed. All CT scans are performed using dose optimization technique as appropriate and may include automated exposure control or mA/KV adjustment according to patient size. FINDINGS: Lower chest: Moderate right and small left pleural effusion. Body wall edema. Atelectasis as result of the effusions. Cardiomegaly. Small pericardial effusion. Liver: No acute abnormality or suspicious lesions. Biliary: No biliary ductal dilatation. Stomach: No significant focal abnormality. Duodenum: No significant focal abnormality. Pancreas: No significant abnormality. Spleen: No significant abnormality. Adrenal: No suspicious lesions. Kidney/ureter: No hydronephrosis. No renal calculi. Retroperitoneum: No retroperitoneal adenopathy. Vascular: No aneurysm. Atherosclerosis. Bowel: No significant focal abnormality. No appendicitis. Peritoneum: No ascites or free air. Body wall edema. Bladder: Grossly unremarkable. Reproductive: Pronounced scrotal edema. Bones: No acute fracture. Other: n/a IMPRESSION: No acute intra-abdominal or pelvic finding. Anasarca including moderate right and small left pleural effusions with associated atelectasis. Scrotal edema is particularly pronounced.
--- NOTE | 2023-07-18 18:42 | ER ---
Nurse's Notes [facility] Name: Eleazar Galvan Sr Age: 52 yrs Sex: Male : 1970 Arrival Date: 07/18/2023 Time: 14:19 Bed 14 Private MD: Diagnosis: Anasarca Presentation: 07/18 14:55 Chief complaint: Patient states: scrotum is swollen, wound to left leg. Has shortness ko1 of breath worse when laying down. Coronavirus screen: At this time, the client does not indicate any symptoms associated with coronavirus-19. Ebola Screen: No symptoms or risks identified at this time. Initial Sepsis Screen: Does the patient meet any 2 criteria? No. Patient's initial sepsis screen is negative. Does the patient have a suspected source of infection? No. Patient's initial sepsis screen is negative. Risk Assessment: Do you want to hurt yourself or someone else? Patient reports no desire to harm self or others. Onset of symptoms is unknown. 14:55 Method Of Arrival: Wheelchair ko1 14:55 Acuity: AURELIA 3 ko1 Triage Assessment: 14:57 General: Appears in no apparent distress. uncomfortable, Behavior is calm, cooperative, ko1 appropriate for age. Pain: Complains of pain in scrotum. Respiratory: Reports shortness of breath at rest on exertion Onset: The symptoms/episode began/occurred gradually, the patient has mild shortness of breath. Historical: - Allergies: 14:57 No Known Allergies; ko1 - PMHx: 14:57 CHF; diabetes mellitus; Hypertensive disorder; legally blind; Myocardial infarction; ko1 Stents x 2; - Immunization history:: Adult Immunizations unknown. - Social history:: Smoking status: Patient denies any tobacco usage or history of. - Family history:: not pertinent. Screenin:00 [facility] ED Fall Risk Assessment (Adult) History of falling in the last 3 months, bp including since admission No falls in past 3 months (0 pts). Abuse screen: Denies threats or abuse. Denies injuries from another. Nutritional screening: No deficits noted. Tuberculosis screening: No symptoms or risk factors identified. Assessment: 15:00 General: SEE TRIAGE NOTE. bp 17:00 Reassessment: Patient appears in no apparent distress at this time. Patient is alert, bp oriented x 3, equal unlabored respirations, skin warm/dry/pink. Cardiovascular: Rhythm is sinus tachycardia. Respiratory: Airway is patent Respiratory effort is even, unlabored, Breath sounds are coarse bilaterally. 19:00 General: Appears in no apparent distress. uncomfortable, well developed, Behavior is pf1 calm, cooperative, appropriate for age, quiet. 19:00 Pain: Complains of pain in scrotum and legs. Neuro: No deficits noted. Level of pf1 Consciousness is awake, alert, obeys commands, Oriented to person, place, time, situation. Cardiovascular: Capillary refill < 3 seconds Patient's skin is warm and dry. Rhythm is sinus tachycardia. 19:00 GI: No deficits noted. No signs and/or symptoms were reported involving the pf1 gastrointestinal system. Abdomen is round non-distended. : Reports pain scrotum, testicle, Pain is 9 out of 10 on a pain scale. with swelling. 19:00 EENT: No deficits noted. No signs and/or symptoms were reported regarding the EENT pf1 system. Derm: Wound noted blisters with clear to yellow drainage from bilateral lower extremties. Musculoskeletal: Circulation, motion, and sensation intact. Capillary refill < 3 seconds, Swelling present in right foot, left foot, right leg and left leg and scrotum Reports pain in right leg and left leg and scrotum. 20:00 Reassessment: Patient appears in no apparent distress at this time. Patient and/or pf1 family updated on plan of care and expected duration. Pain level reassessed. Patient is alert, oriented x 3, equal unlabored respirations, skin warm/dry/pink. 21:00 Reassessment: Patient appears in no apparent distress at this time. Patient and/or pf1 family updated on plan of care and expected duration. Pain level reassessed. Patient is alert, oriented x 3, equal unlabored respirations, skin warm/dry/pink. 22:00 Reassessment: Patient appears in no apparent distress at this time. Patient and/or pf1 family updated on plan of care and expected duration. Pain level reassessed. Patient is alert, oriented x 3, equal unlabored respirations, skin warm/dry/pink. Vital Signs: 14:55 BP 158 / 98; Pulse 107; Resp 18; Temp 99.1; Pulse Ox 99% on R/A; ko1 19:00 BP 151 / 99; Pulse 112; Resp 20; Pulse Ox 98% on R/A; Pain 9/10; pf1 20:00 BP 140 / 96; Pulse 108; Resp 18; Pulse Ox 99% on R/A; pf1 21:00 BP 160 / 104; Pulse 106; Resp 16; Pulse Ox 99% on R/A; pf1 22:00 BP 159 / 95; Pulse 105; Resp 20; Temp 98; Pulse Ox 99% on R/A; Pain 9/10; pf1 19:00 Pain Scale: Adult pf1 22:00 Pain Scale: Adult pf1 ED Course: 14:21 Patient arrived in ED. ra3 14:29 Dennis Lang MD is Attending Physician. rt 14:57 Triage completed. ko1 14:57 Arm band placed on right wrist. Patient placed in waiting room, Patient notified of ko1 wait time. 15:59 XRAY Chest (1 view) In Process Unspecified. EDMS 16:49 Aftab Patterson RN is Primary Nurse. bp 17:00 Patient has correct armband on for positive identification. bp 18:03 Inserted saline lock: 22 gauge in left antecubital area, using aseptic technique. Blood bp collected. 18:23 Abdomen In Process Unspecified. EDMS 18:48 Kevin Prakash MD is Hospitalizing Provider. rt 21:20 No provider procedures requiring assistance completed. Patient admitted, IV remains in pf1 place. 22:53 Provided Education on: need for admit . pf1 Administered Medications: No medications were administered Medication: 21:21 VIS not applicable for this client. pf1 Outcome: 18:42 ER care complete, transfer ordered by . rt 18:48 Decision to Hospitalize by Provider. rt 22:52 Admitted to Med/surg accompanied by nurse, via stretcher, room 221, with chart, Report pf1 called to JEROME Mckeon 22:52 Condition: stable 22:52 Instructed on the need for admit, Demonstrated understanding of instructions, 22:54 Patient left the ED. pf1 Signatures: Dispatcher [employer] EDMS Aftab Patterson, RN RN bp Gris Thomason RN RN ko1 Dennis Lang MD MD rt Samantha Licea RN RN pf1 Xin Swift ra3
--- NOTE | 2023-07-18 18:42 | EDPHYS ---
Physician Documentation [facility] Name: Eleazar Galvan Sr Age: 52 yrs Sex: Male : 1970 Arrival Date: 07/18/2023 Time: 14:19 Bed 14 Private MD: ED Physician Dennis Lang HPI: 07/18 15:21 This 52 yrs old [place] Male presents to ER via Wheelchair with complaints of rt Shortness Of Breath, Scrotal Pain, Acute Onset. 15:21 Patient with prior history of cardiac arrest, congestive heart failure presents to the rt ED with swelling to the scrotal area as well as shortness of breath, worse when he lies down flat. Reports swelling to the bilateral lower extremities. Denies chest pain. Denies other acute complaints, symptoms are moderate in severity, no other aggravating or elevating factors.. Historical: - Allergies: 14:57 No Known Allergies; ko1 - PMHx: 14:57 CHF; diabetes mellitus; Hypertensive disorder; legally blind; Myocardial infarction; ko1 Stents x 2; - Immunization history:: Adult Immunizations unknown. - Social history:: Smoking status: Patient denies any tobacco usage or history of. - Family history:: not pertinent. ROS: 15:21 Constitutional: Negative for fever, chills, and weight loss, Abdomen/GI: Negative for rt abdominal pain, nausea, vomiting, diarrhea, and constipation, MS/Extremity: Negative for injury and deformity, Skin: Negative for injury, rash, and discoloration, Neuro: Negative for headache, weakness, numbness, tingling, and seizure, Psych: Negative for depression, anxiety, suicide ideation, homicidal ideation, and hallucinations, 15:21 Cardiovascular: Positive for edema, orthopnea, Negative for 15:21 Respiratory: Positive for cough, shortness of breath, 15:21 : Positive for Scrotal swelling, negative for dysuria, Exam: 15:21 Constitutional: This is a well developed, well nourished patient who is awake, alert, rt and in no acute distress. Head/Face: Normocephalic, atraumatic. Chest/axilla: Normal chest wall appearance and motion. Nontender with no deformity. No lesions are appreciated. Cardiovascular: Regular rate and rhythm with a normal S1 and S2. No gallops, murmurs, or rubs. Normal PMI, no JVD. No pulse deficits. Respiratory: Lungs have equal breath sounds bilaterally, clear to auscultation and percussion. No rales, rhonchi or wheezes noted. No increased work of breathing, no retractions or nasal flaring. Skin: Warm, dry with normal turgor. Normal color with no rashes, no lesions, and no evidence of cellulitis. Neuro: Awake and alert, GCS 15, oriented to person, place, time, and situation. Cranial nerves II-XII grossly intact. Motor strength 5/5 in all extremities. Sensory grossly intact. Cerebellar exam normal. Normal gait. Psych: Awake, alert, with orientation to person, place and time. Behavior, mood, and affect are within normal limits. 15:21 Respiratory: Crackles heard on all lung siu, no respiratory distress, 15:21 : Significant scrotal swelling noted, no crepitus, 15:21 Musculoskeletal/extremity: 4+ edema with chronic skin changes to the bilateral lower extremities. 18:04 ECG was reviewed by the Attending Physician. rt Vital Signs: 14:55 BP 158 / 98; Pulse 107; Resp 18; Temp 99.1; Pulse Ox 99% on R/A; ko1 19:00 BP 151 / 99; Pulse 112; Resp 20; Pulse Ox 98% on R/A; Pain 9/10; pf1 20:00 BP 140 / 96; Pulse 108; Resp 18; Pulse Ox 99% on R/A; pf1 21:00 BP 160 / 104; Pulse 106; Resp 16; Pulse Ox 99% on R/A; pf1 22:00 BP 159 / 95; Pulse 105; Resp 20; Temp 98; Pulse Ox 99% on R/A; Pain 9/10; pf1 19:00 Pain Scale: Adult pf1 22:00 Pain Scale: Adult pf1 MDM: 14:54 Patient medically screened. rt 18:53 Differential diagnosis: Beau's gangrene, anasarca, CHF. Data reviewed: vital signs, rt nurses notes, lab test result(s), EKG, radiologic studies. Consideration of Admission/Observation Patient was admitted/placed on observation. Management of patient was discussed with the following: Hospitalist: Agrees to admit. I considered the following discharge prescriptions or medication management in the emergency department Medications were administered in the Emergency Department. See MAR. Care significantly affected by the following chronic conditions: Congestive Heart Failure. Response to treatment: the patient's symptoms have mildly improved after treatment. 07/18 15:03 Order name: Basic Metabolic Panel; Complete Time: 18:03 rt 07/18 15:03 Order name: CBC with Diff; Complete Time: 17:42 rt 07/18 15:03 Order name: LFT's; Complete Time: 18:03 rt 07/18 15:03 Order name: Magnesium; Complete Time: 18:03 rt 07/18 15:03 Order name: NT PRO-BNP; Complete Time: 18:03 rt 07/18 15:03 Order name: Troponin HS; Complete Time: 18:03 rt 07/18 15:03 Order name: Blood Culture Adult (2) rt 07/18 15:03 Order name: Lactate w/ 2H reflex if indic.; Complete Time: 18:03 rt 07/18 15:03 Order name: Protime (+inr); Complete Time: 17:42 rt 07/18 15:03 Order name: Ptt, Activated; Complete Time: 17:42 rt 07/18 15:03 Order name: Urinalysis w/ reflexes rt 07/18 20:13 Order name: Basic Metabolic Panel EDMS 07/18 20:13 Order name: CBC with Automated Diff EDMS 07/18 20:13 Order name: Magnesium EDMS 07/18 20:13 Order name: Troponin High Sensitivity EDMS 07/18 20:13 Order name: Troponin High Sensitivity EDMS 07/18 20:13 Order name: Troponin High Sensitivity EDMS 07/18 20:13 Order name: Troponin High Sensitivity EDMS 07/18 20:13 Order name: Troponin High Sensitivity EDMS 07/18 15:03 Order name: XRAY Chest (1 view); Complete Time: 17:42 rt 07/18 18:08 Order name: Abdomen ; Complete Time: 18:33 EDMS 07/18 20:13 Order name: Echo with Doppler EDMS 07/18 15:03 Order name: EKG; Complete Time: 15:03 rt 07/18 15:03 Order name: Cardiac monitoring; Complete Time: 17:09 rt 07/18 15:03 Order name: EKG - Nurse/Tech; Complete Time: 17:28 rt 07/18 15:03 Order name: IV Saline Lock; Complete Time: 17:28 rt 07/18 15:03 Order name: Labs collected and sent; Complete Time: 17: rt 07/18 15:03 Order name: O2 Per Protocol; Complete Time: 17: rt 07/18 15:03 Order name: O2 Sat Monitoring; Complete Time: 17: rt 07/18 15:03 Order name: Accucheck; Complete Time: : rt 07/18 15:03 Order name: IV Saline Lock - Large Bore; Complete Time: : rt 07/18 15:03 Order name: Vital Signs; Complete Time: 17: rt EC:04 Rate is 107 beats/min. Rhythm is regular, Sinus tachycardia with No ectopy. QRS [place] is rt Normal. SC interval is normal. QRS interval is normal. QT interval is normal. No Q waves. Clinical impression: NSR w/ Non-specific ST/T Changes. Administered Medications: No medications were administered Disposition Summary: 07/18/23 18:48 Hospitalization Ordered Notes: Hospitalization Status: Observation rt Provider: Kevin Prakash rt Location: Telemetry/MedSurg (observation) rt Condition: Stable(07/18/23 18:48) rt Problem: an acute exacerbation(07/18/23 18:48) rt Symptoms: have improved(07/18/23 18:48) rt Bed/Room Type: Standard rt Room Assignment: 221(07/18/23 21:05) jb4 Diagnosis - Anasarca rt Forms: - Medication Reconciliation Form rt - SBAR form rt - Leadership Thank You Letter rt Signatures: Dispatcher [employer] Remigio Cali RN RN jb4 Gris Thomason, JEROME RN ko1 Dennis Lang MD MD rt Corrections: (The following items were deleted from the chart) 18:08 15:03 Abdomen Pelvis W Con+CT.RAD.BRZ ordered. EDMS EDMS 18:42 18:42 Dr. Salguero rt rt 18:42 18:42 Restoration System rt rt 18:42 18:42 Higher level of care rt rt 18:42 18:42 Critical rt rt 18:42 18:42 an acute exacerbation rt rt 18:42 18:42 are unchanged rt rt 18:42 18:42 Ventricular tachycardia rt rt 21:05 18:48 rt jb4
[2023-07-18] MEDS ORDERED: ONDANSETRON 4 MG/2 ML VIAL IV PRN (20:06)
[2023-07-18] MEDS ORDERED: ACETAMINOPHEN 650MG/RECT SUPP PR PRN (20:06)
--- NOTE | 2023-07-18 20:11 | P.HP ---
Certification for Inpatient Patient admitted to: Inpatient With expected LOS: >2 Midnights Practitioner: I am a practitioner with admitting privileges, knowledge of patient current condition, hospital course, and medical plan of care. Services: Services provided to patient in accordance with Admission requirements found in Title 42 Section 412.3 of the Code of Federal Regulations Patient History Date of Service: 07/19/23 Reason for admission: Swelling of the lower extremity, shortness of breath. History of Present Illness: 52-year-old male patient who has a medical history significant for diabetes type 2, hypertension, CHF, coronary disease status post stent placement was started due to current admission for CHF exacerbation. His last admission was in May 2021 for [facility]. He comes to the emergency with complaint of progressive lower extremity swelling and shortness of breath and has had significant fluid overload. He was deemed to be in CHF exacerbation so he was admitted for inpatient care. Patient reported not been able to procure his meds due to his low income/homelessness state.-He has been off any of the diuretic medication for at least a couple of weeks. Allergies No Known Allergies Allergy (Unverified 09/04/17 16:23) Home Medications: Insulin Detemir [Levemir Flexpen] 16 units SQ DAILY 07/18/23 Losartan Potassium [Cozaar] 100 mg PO BID 6AM 6PM 07/18/23 Quetiapine Fumarate [Seroquel] 300 mg PO BEDTIME 07/18/23 hydroCHLOROthiazide [Hydrochlorothiazide] 25 mg PO Q48H 07/18/23 - Past Medical/Surgical History Diabetic: Yes -: Congestive heart failure -: SD history of 2 cardiac stents -: Hypertension -: Hyperlipidemia -: Diabetes -: Cardiac stents - Family History Mother -: Cancer Father -: Diabetes, Kidney disease - Social History Alcohol use: No CD- Drugs: No Caffeine use: Yes Review of Systems General: Unremarkable Eyes: Unremarkable ENT: Unremarkable Respiratory: Unremarkable Cardiovascular: Orthopnea, Paroxysmal Noc. Dyspnea, Edema Gastrointestinal: Unremarkable Genitourinary: Unremarkable Musculoskeletal: Unremarkable Integumentary: Unremarkable Neurological: Unremarkable Lymphatics: Unremarkable Physical Examination - Physical Exam General: Alert, Oriented x3 HEENT: Atraumatic Neck: Supple Respiratory: Normal air movement Cardiovascular: Regular rate/rhythm, Normal S1 S2 Gastrointestinal: Soft and benign Musculoskeletal: Swelling Neurological: Normal speech, Normal strength at 5/5 x4 extr - Studies Laboratory Data (last 24 hrs) 07/18/23 07/18/23 07/18/23 17:15 17:15 17:15 WBC 5.60 Hgb 12.8 L Hct 38.2 L Plt Count 191 PT 11.8 INR 1.07 APTT 36.5 Sodium 138 Potassium 4.9 BUN 32 H Creatinine 1.91 H Glucose 100 Magnesium 1.7 Total Bilirubin 0.5 AST 24 ALT 42 Alkaline Phosphatase 73 Assessment and Plan - Plan CHF exacerbation. Patient has worsening CHF secondary to medication noncompliance and dietary and fluid restriction noncompliance. Will continue Lasix at 40 mg every 8 hours and monitor input and output closely. Will continue fluid restriction of 1.2 L/day. Continue low-sodium diet. Follow plans for further management with lisinopril, aspirin and amlodipine Hypertension: We will monitor vital signs per unit protocol and continue outpatient antihypertensive medication. Diabetes type 2: Monitor blood sugar ACHS and continue mild sliding scale insulin for glucose control History of coronary artery disease: Will continue aspirin and statin therapy. Poor social economic status: Will have rn social services evaluate patient for medication procurement and assistance. Prophylaxis: Lovenox for DVT prophylaxis CODE STATUS: Full code Disposition: We will treat his CHF exacerbation, adjust medication for better management of CHF and discharge him when plan of care is finalized. - Advance Directives Does patient have a Living Will: No Does patient have a Durable POA for Healthcare: No
[2023-07-18] MEDS ORDERED: LORazepam 2 MG/ML VIAL ONE (21:47)
[2023-07-18] MEDS: LORazepam 2 MG/ML VIAL IV ONE (21:56)
[2023-07-18] MEDS ORDERED: FUROSEMIDE 40 MG/4 ML VIAL ONE (22:29)
[2023-07-18] MEDS: FUROSEMIDE 40 MG/4 ML VIAL IV SCH (22:40)
[2023-07-18 23:13] LABS: Specific Gravity 1.018 (1.005-1.030); Urine Bacteria None Seen /HPF (<20); Urine Bilirubin NEGATIVE (Negative); Urine Blood 2+ (Negative); Urine Clarity Clear (Clear); Urine Color Light-Yellow (Yellow); Urine Glucose NEGATIVE (Negative); Urine Protein 3+ (Negative); Urine Urobilinogen Normal (Normal)
[2023-07-18] MEDS: TRAMADOL HCL 50 MG TAB PO PRN (23:33)
[2023-07-19 00:21] VITALS: BMI 32.8
[2023-07-19 03:52] LABS: Absolute Lymphocytes (CBC) 1.6 K/uL (0.7-4.9); MCV 83.6 fL (80-100); MPV 8.2 fL (7.6-11.3); Platelets 210 thou/uL (152-406); RBC Red Blood Cell Count 4.54 M/uL (4.33-5.43)
[2023-07-19 03:55] LABS: Magnesium 1.7 mg/dL (1.6-2.4); Potassium 4.9 mEq/L (3.5-5.1)
[2023-07-19] MEDS: MAGNESIUM SULFATE 1 gm IVPB 1 GM/100 ML BAG IV ONE (05:55)
--- NOTE | 2023-07-19 06:17 | P.PN ---
Date of Service: 07/19/23 Subjective: Physical Exam: Vitals: reviewed GEN: Alert, oriented, NAD HEENT: Normal conjunctiva, sclera anicteric CV: Regular rate & rhythm, no edema Pulm: Nonlabored respiraitons, clear bilaterally ABD: Soft, nontender, nondistended MSK: No joint tenderness Integumentary: No rashes Neuro: Normal speech, normal affect Problem List: Acute on chronic CHF exacerbation Anasarca small-mod bilateral pleural effusions Hypertension DM2 Hx CAD Plan: Acute on chronic CHF exacerbation Anasarca small-mod bilateral pleural effusions CT abd (07/18): Anasarca including moderate right and small left pleural effusions with associated atelectasis. Scrotal edema is particularly pronounced CXR (07/18): pulm edema patient reports medication noncompliance secondary to cost / difficult procurement Continue IV lasix Fluid restriction 1.2L/day strict I/Os continue home meds includnig lisinopril, aspirin, amlodipine Hypertension resume antihypertensives DM2 mild sliding scale insulin Hx CAD continue aspirin, statin VTE: lovenox
--- NOTE | 2023-07-19 06:53 | P.PN ---
Subjective Date of Service: 07/19/23 Chief Complaint: Swelling of the lower extremity, shortness of breath. Reports lower extremity pain from lymphedema,, reports shortness of breath is improved, reports applying for disability recently denied, - Physical Exam General: Alert, Oriented x3 HEENT: Atraumatic Neck: Supple Respiratory: Crackles in the bases normal air movement Cardiovascular: Regular rate/rhythm, Normal S1 S2, bilateral lower extremity edema Gastrointestinal: Soft and benign Musculoskeletal: Swelling Skin, bilateral lower extremity wounds covered with dry dressing Neurological: Normal speech, Normal strength at 5/5 x4 extr Review of Systems per HPI Physical Examination - Vital Signs Temperature: 98.2 F Blood Pressure: 187/116 Pulse: 114 Respirations: 17 Pulse Ox (%): 97 - Studies Laboratory Data (last 24 hrs) 07/18/23 07/18/23 07/18/23 17:15 17:15 17:15 WBC 5.60 Hgb 12.8 L Hct 38.2 L Plt Count 191 PT 11.8 INR 1.07 APTT 36.5 Sodium 138 Potassium 4.9 BUN 32 H Creatinine 1.91 H Glucose 100 Magnesium 1.7 Total Bilirubin 0.5 AST 24 ALT 42 Alkaline Phosphatase 73 Assessment And Plan - Plan Assessment plan Acute on chronic heart failure combined diastolic, systolic EF 40% CHF exacerbation. Elevated troponin Fluid volume overload Anasarca patient has worsening CHF secondary to medication noncompliance and dietary and fluid restriction noncompliance. Will continue Lasix at 40 mg every 8 hours and monitor input and output closely. Will continue fluid restriction of 1.2 L/day. Continue low-sodium diet. Follow plans for further management with lisinopril, aspirin and amlodipine 06/06 Echo COMMENTS: 1. MILDLY DEPRESSED LEFT VENTRICULAR EJECTION FRACTION 40-45% 2. MILD GLOBAL HYPOKINESIS 3. MODERATE DIASTOLIC DYSFUNCTION 4. LEFT ATRIAL ENLARGEMENT 5. MILD MITRAL REGURGITATION, TRICUSPID REGURGITATION, PULMONIC INSUFFICIENCY 6. RIGHT VENTRICULAR SYSTOLIC PRESSURE IS NORMAL, LESS THAN 25 mmHg 06/08/23 Stress test History of acute on chronic decompensated heart failure, Hypertensive urgency Hypertension: We will monitor vital signs per unit protocol and continue outpatient antihypertensive medication. As needed antihypertensive Acute on chronic kidney injury likely secondary to prerenal congestive heart failure CKD stage III Avoid nephrotoxic medication Lymphedema, Bilateral lower extremity venous stasis ulcers Daily weight Dry dressing Monitor for signs and symptoms of infection Diabetes type 2: Monitor blood sugar ACHS and continue mild sliding scale insulin for glucose control History of coronary artery disease: Will continue aspirin and statin therapy. Poor social economic status: Will have school social worker evaluate patient for medication procurement and assistance. Prophylaxis: Lovenox for DVT prophylaxis CODE STATUS: Full code Disposition: We will treat his CHF exacerbation, adjust medication for better management of CHF and discharge him when plan of care is finalized. Discharge Plan: Home - Code Status/Comfort Care Code Status: Full Code Critical Care: No Time Spent Managing PTS Care (In Minutes): 35
[2023-07-19] MEDS ORDERED: HYDRALAZINE HCL 20 MG/ML VIAL IV PRN (06:55)
[2023-07-19] MEDS ORDERED: D50W 25 GM/50 ML SYRINGE IV PRN (06:57)
[2023-07-19] MEDS ORDERED: GLUCAGON 1 MG/VIAL IM PRN (06:57)
[2023-07-19] MEDS ORDERED: D10W 125 ML IV PRN (07:11)
[2023-07-19] MEDS: INSULIN REGULAR (HUMAN) 100 UNIT/ML SQ SCH (07:30)
[2023-07-19] MEDS: ENOXAPARIN 40 MG/0.4 ML SQ SCH (08:50)
[2023-07-19] MEDS: ASPIRIN EC 81 MG TAB PO SCH (08:51)
[2023-07-19] MEDS: AMLODIPINE 10 MG TAB PO SCH (08:52)
[2023-07-19] MEDS: hydroCHLOROthiazide 25 MG TAB PO SCH (08:52)
[2023-07-19] MEDS: lisinopriL 10 MG TAB PO SCH (08:52)
[2023-07-19] MEDS: INSULIN GLARGINE 100 UNIT/ML SQ SCH (08:53)
--- NOTE | 2023-07-19 10:55 | EKG ---
Test Date: 2023-07-18 Test Time: 17:23:00 Channel Process Supervisor: LESLIE MEASUREMENT RESULTS: Intervals: Rate: 107 HI: 146 QRSD: 86 QT: 348 QTc: 464 [place]: P: 64 HI: 146 QRS: 67 T: 117 INTERPRETIVE STATEMENTS: Sinus tachycardia Nonspecific T wave abnormality Abnormal ECG Compared to ECG 06/07/2023 08:06:32 Sinus rhythm no longer present Possible ischemia no longer present T-wave abnormality still present Electronically Signed On 07-19-23 10:54:59 INSULATION BOARD COATER OPERATOR by Wilbur Nevarez
[2023-07-19] MEDS: LOSARTAN POTASSIUM 50 MG TABLET PO SCH (17:37)
[2023-07-19] MEDS: ALBUMIN HUMAN 25% 12.5 GM, FUROSEMIDE 100 MG in NA CHLORIDE 0.9% 40 ML IV SCH (19:15)
[2023-07-19] MEDS: QUETIAPINE 100MG TAB PO SCH (21:13)
[2023-07-20 06:41] LABS: Magnesium 1.9 mg/dL (1.6-2.4); Potassium 4.3 mEq/L (3.5-5.1)
--- NOTE | 2023-07-20 07:42 | P.PN ---
Subjective Date of Service: 07/20/23 Chief Complaint: Swelling of the lower extremity, shortness of breath. Swelling, shortness of breath improving, Reports lower extremity pain from lymphedema,, reports shortness of breath is improved, reports applying for disability recently denied, - Physical Exam General: Alert, Oriented x3 HEENT: Atraumatic Neck: Supple Respiratory: Crackles in the bases normal air movement Cardiovascular: Regular rate/rhythm, Normal S1 S2, bilateral lower extremity edema Gastrointestinal: Soft and benign Musculoskeletal: Swelling Skin, bilateral lower extremity wounds covered with dry dressing Neurological: Normal speech, Normal strength at 5/5 x4 extr Review of Systems PER HPI Physical Examination - Vital Signs Temperature: 97.9 F Blood Pressure: 146/90 Pulse: 107 Respirations: 20 Pulse Ox (%): 92 Assessment And Plan - Plan Assessment plan Acute on chronic heart failure combined diastolic, systolic EF 40% CHF exacerbation. Elevated troponin Fluid volume overload Anasarca patient has worsening CHF secondary to medication noncompliance and dietary and fluid restriction noncompliance. Will continue Lasix at 40 mg every 8 hours and monitor input and output closely. Will continue fluid restriction of 1.2 L/day. Continue low-sodium diet. Follow plans for further management with lisinopril, aspirin and amlodipine 06/06 Echo COMMENTS: 1. MILDLY DEPRESSED LEFT VENTRICULAR EJECTION FRACTION 40-45% 2. MILD GLOBAL HYPOKINESIS 3. MODERATE DIASTOLIC DYSFUNCTION 4. LEFT ATRIAL ENLARGEMENT 5. MILD MITRAL REGURGITATION, TRICUSPID REGURGITATION, PULMONIC INSUFFICIENCY 6. RIGHT VENTRICULAR SYSTOLIC PRESSURE IS NORMAL, LESS THAN 25 mmHg 06/08/23 Stress test History of acute on chronic decompensated heart failure, Hypertensive urgency Hypertension: We will monitor vital signs per unit protocol and continue outpatient antihypertensive medication. As needed antihypertensive Acute on chronic kidney injury likely secondary to prerenal congestive heart failure CKD stage III Avoid nephrotoxic medication Lasix changed from 3 times daily to p.o. twice daily Lymphedema, Bilateral lower extremity venous stasis ulcers Daily weight Dry dressing Monitor for signs and symptoms of infection Diabetes type 2: Monitor blood sugar ACHS and continue mild sliding scale insulin for glucose control History of coronary artery disease: Will continue aspirin and statin therapy. Poor social economic status: Will have social services specialist evaluate patient for medication procurement and assistance. Prophylaxis: Lovenox for DVT prophylaxis CODE STATUS: Full code Disposition: We will treat his CHF exacerbation, adjust medication for better management of CHF and discharge him when plan of care is finalized. Discharge Plan: Home Plan to discharge in: 48 Hours - Code Status/Comfort Care Code Status: Full Code Critical Care: No Time Spent Managing PTS Care (In Minutes): 35
[2023-07-20] MEDS: FUROSEMIDE 40 MG TABLET PO SCH (09:50)
[2023-07-20] MEDS: METOPROLOL TAR 25 MG TAB PO ONE (11:59)
[2023-07-20] MEDS: METOPROLOL TARTRATE 5 MG/5 ML INJ IV STA (12:00)
[2023-07-20] MEDS: ALBUMIN HUMAN 25% 12.5 GM, FUROSEMIDE 100 MG in NA CHLORIDE 0.9% 40 ML IV SCH (12:01)
[2023-07-20] MEDS: METOPROLOL TAR 50 MG TAB PO SCH (17:13)
[2023-07-21 07:24] LABS: Absolute Lymphocytes (CBC) 1.3 K/uL (0.7-4.9); Albumin 2.1 g/dL (3.4-5.0); Bilirubin Total 0.6 mg/dL (0.2-1.0); Hematocrit 33.3 % (39.6-49.0); Lymphocytes % 29.4 % (15.3-44.8); MCV 82.9 fL (80-100); MPV 7.9 fL (7.6-11.3); Magnesium 1.7 mg/dL (1.6-2.4); Platelets 196 thou/uL (152-406); Protein, Total 5.2 g/dL (6.4-8.2); RBC Red Blood Cell Count 4.02 M/uL (4.33-5.43)
[2023-07-21] MEDS: FUROSEMIDE 40 MG TABLET PO SCH (09:13)
[2023-07-21] MEDS: ALBUMIN HUMAN 25% 12.5 GM, FUROSEMIDE 100 MG in NA CHLORIDE 0.9% 40 ML IV SCH (11:00)
--- NOTE | 2023-07-21 14:33 | P.DS ---
Admission Date: 07/18/23 Discharge Date: 07/22/23 Disposition: ROUTINE DISCHARGE Discharge Condition: GOOD Reason for Admission: Swelling of the lower extremity, shortness of breath. Brief History of Present Illness: 52-year-old male patient who has a medical history significant for diabetes type 2, hypertension, CHF, coronary disease status post stent placement was started due to current admission for CHF exacerbation. His last admission was in May 2021 for [facility]. He comes to the emergency with complaint of progressive lower extremity swelling and shortness of breath and has had significant fluid overload. He was deemed to be in CHF exacerbation so he was admitted for inpatient care. Patient reported not been able to procure his meds due to his low income/homelessness state.-He has been off any of the diuretic medication for at least a couple of weeks. - Physical Exam General: Alert, Oriented x3 HEENT: Atraumatic Neck: Supple Respiratory: Normal air movement Cardiovascular: Regular rate/rhythm, Normal S1 S2 Gastrointestinal: Soft and benign Musculoskeletal: Swelling Neurological: Normal speech, Normal strength at 5/5 x4 extr Hospital Course: 52 year-old male patient with past medical history of diabetes type 2, hypertension, CHF, coronary disease, noncompliant presented with shortness of breath. Was noted to have acute on chronic heart failure, lymphedema, scrotal edema. Condition improved with diuretics, fluid restriction, patient tolerating diet, ambulating independent, refused physical therapy, refused DME eval, is stable for discharge to home with follow-up appointment with primary care physician, cardiology after discharge. PROBLEM: Acute on chronic heart failure pleural effusions with atelectasis Anasarca Pronounced scrotal edema Acute kidney injury likely secondary to prerenal congestive heart failure Elevated BNP Treatment noncompliance Diabetes type 2 Lymphedema Follow-up with cardiology in 1 to 2 weeks for acute on chronic heart failure Follow-up with nephrology for acute on chronic kidney injury secondary to prerenal congestive heart failure CT abd (07/18): Anasarca including moderate right and small left pleural effusions with associated atelectasis. Scrotal edema is particularly pronounced CXR (07/18): pulm edema patient reports medication noncompliance secondary to cost / difficult procurement Continue IV lasix Fluid restriction 1.2L/day strict I/Os continue home meds includnig lisinopril, aspirin, amlodipine, Cozaar, metoprolol Continue home medicines as previously prescribed GOAL: Clear understanding of disease process INSTRUCTIONS: Physician Discharge Instructions: -Follow-up with PCP in 1 to 2 weeks -Please call Dr. Alcantar at [phone] if any questions regarding hospital stay -Please call nursing station at [phone] if any nursing or medication questions -Return to the emergency room if symptoms worsen Diet: ADA, low sodium Activity: Fall precautions Vital Signs/Physical Exam: Temp Pulse Resp BP Pulse Ox 98.2 F 90 16 121/71 96 07/21/23 12:00 07/21/23 12:00 07/21/23 12:00 07/21/23 12:00 07/21/23 12:00 Laboratory Data at Discharge: WBC 4.50 thou/uL (4.3-10.9) 07/21/23 06:49 Hgb 11.6 g/dL (13.6-17.9) L 07/21/23 06:49 Hct 33.3 % (39.6-49.0) L 07/21/23 06:49 Plt Count 196 thou/uL (152-406) 07/21/23 06:49 PT 11.8 SECONDS (9.5-12.5) 07/18/23 17:15 INR 1.07 07/18/23 17:15 APTT 36.5 SECONDS (24.3-36.9) 07/18/23 17:15 Sodium 139 mEq/L (136-145) 07/21/23 06:49 Potassium 4.0 mEq/L (3.5-5.1) 07/21/23 06:49 BUN 38 mg/dL (7-18) H 07/21/23 06:49 Creatinine 1.79 mg/dL (0.70-1.30) H 07/21/23 06:49 Glucose 118 mg/dL (74-106) H 07/21/23 06:49 Magnesium 1.7 mg/dL (1.6-2.4) 07/21/23 06:49 Total Bilirubin 0.6 mg/dL (0.2-1.0) 07/21/23 06:49 AST 11 U/L (15-37) L 07/21/23 06:49 ALT 22 U/L (16-61) 07/21/23 06:49 Alkaline Phosphatase 63 U/L (45-117) 07/21/23 06:49 Home Medications: Insulin Detemir [Levemir Flexpen] 16 units SQ DAILY 07/18/23 Amlodipine [Norvasc*] 10 mg PO DAILY tab 07/21/23 Amlodipine [Norvasc*] 10 mg PO DAILY 30 Days #30 tab 07/21/23 Insulin -Regular Human [Novolin -R*] See Protocol SQ ACHS ml 07/21/23 Insulin Glargine,Hum.rec.anlog [Semglee] 16 unit SQ DAILY 30 Days #100 ml 07/21/23 Losartan Potassium [Cozaar*] 100 mg PO BID 6AM 6PM 30 Days #30 mg 07/21/23 Metoprolol Tartrate [Lopressor*] 75 mg PO BID 6AM 6PM 30 Days #90 tab 07/21/23 Quetiapine Fumarate [Seroquel] 300 mg PO BEDTIME 30 Days #30 mg 07/21/23 hydroCHLOROthiazide [Hydrochlorothiazide] 25 mg PO Q48H 30 Days #30 mg 07/21/23 traMADol HCL [Ultram*] 50 mg PO TID PRN tab 07/21/23 New Medications: Losartan Potassium [Cozaar*] 100 mg PO BID 6AM 6PM 30 Days #30 mg hydroCHLOROthiazide [Hydrochlorothiazide] 25 mg PO Q48H 30 Days #30 mg Metoprolol Tartrate [Lopressor*] 75 mg PO BID 6AM 6PM 30 Days #90 tab Amlodipine [Norvasc*] 10 mg PO DAILY 30 Days #30 tab Insulin Glargine,Hum.rec.anlog [Semglee] 16 unit SQ DAILY 30 Days #100 ml Quetiapine Fumarate [Seroquel] 300 mg PO BEDTIME 30 Days #30 mg Physician Discharge Instructions: -DC IV and DC home -Follow-up with PCP in 1 to 2 weeks -Follow-up with Cardiology in 1 to 2 weeks -Follow-up with nephrology in 1 to 2 weeks -Please call Dr. Alcantar at [phone] if any questions regarding hospital stay -Please call nursing station at [phone] if any nursing or medication questions -Return to the emergency room if symptoms worsen Diet: AHA Activity: Fall precautions Followup: NONE,NONE [Primary Care Provider] - 1-2 Weeks Cosmo Carvajal MD [ACTIVE - CAN ADMIT] - 1-2 Weeks Time spent managing pt's care (in minutes): 55
--- NOTE | 2023-07-21 15:11 | P.PN ---
Subjective Date of Service: 07/21/23 Chief Complaint: Swelling of the lower extremity, shortness of breath. Swelling, shortness of breath improving, Reports lower extremity pain from lymphedema,, reports shortness of breath is improved, reports applying for disability recently denied, - Physical Exam General: Alert, Oriented x3 HEENT: Atraumatic Neck: Supple Respiratory: diminished, normal air movement Cardiovascular: Regular rate/rhythm, Normal S1 S2, bilateral lower extremity edema Gastrointestinal: Soft and benign Musculoskeletal: Swelling Skin, bilateral lower extremity wounds covered with dry dressing Neurological: Normal speech, Normal strength at 5/5 x4 extr Review of Systems per HPI Physical Examination - Vital Signs Temperature: 98.2 F Blood Pressure: 121/71 Pulse: 90 Respirations: 16 Pulse Ox (%): 96 Assessment And Plan - Plan Assessment plan Acute on chronic heart failure combined diastolic, systolic EF 40% CHF exacerbation. Elevated troponin Fluid volume overload Anasarca patient has worsening CHF secondary to medication noncompliance and dietary and fluid restriction noncompliance. Will continue Lasix at 40 mg every 8 hours and monitor input and output closely. Will continue fluid restriction of 1.2 L/day. Continue low-sodium diet. Follow plans for further management with lisinopril, aspirin and amlodipine 06/06 Echo COMMENTS: 1. MILDLY DEPRESSED LEFT VENTRICULAR EJECTION FRACTION 40-45% 2. MILD GLOBAL HYPOKINESIS 3. MODERATE DIASTOLIC DYSFUNCTION 4. LEFT ATRIAL ENLARGEMENT 5. MILD MITRAL REGURGITATION, TRICUSPID REGURGITATION, PULMONIC INSUFFICIENCY 6. RIGHT VENTRICULAR SYSTOLIC PRESSURE IS NORMAL, LESS THAN 25 mmHg 06/08/23 Stress test History of acute on chronic decompensated heart failure, Hypertensive urgency Hypertension: We will monitor vital signs per unit protocol and continue outpatient antihypertensive medication. As needed antihypertensive Acute on chronic kidney injury likely secondary to prerenal congestive heart failure CKD stage III Avoid nephrotoxic medication Lasix changed from 3 times daily to p.o. twice daily Lymphedema, Bilateral lower extremity venous stasis ulcers Daily weight Dry dressing Monitor for signs and symptoms of infection Diabetes type 2: Monitor blood sugar ACHS and continue mild sliding scale insulin for glucose control History of coronary artery disease: Will continue aspirin and statin therapy. Poor social economic status: Will have social services technician evaluate patient for medication procurement and assistance. Prophylaxis: Lovenox for DVT prophylaxis CODE STATUS: Full code Disposition: We will treat his CHF exacerbation, adjust medication for better management of CHF and discharge him when plan of care is finalized. Discharge Plan: Home - Code Status/Comfort Care Code Status: Full Code Critical Care: No Time Spent Managing PTS Care (In Minutes): 35
[2023-07-21] MEDS: METOPROLOL TAR 50 MG TAB PO SCH (17:40)
[2023-07-22 12:22] VITALS: O2SAT 98
[2023-07-22 12:42] VITALS: BP 152/93; TEMP 98.1
== END 2023-07-22 05:55 | disposition home or self-care (01) | DRG 291 ==
LOC: ER 14:19 → ERHOLD 20:06 → 2ND 21:10
PROVIDERS: ADMIT Internal Medicine Nephrology; ATTEND Hospitalist
DX: I13.0 Hypertensive heart and chronic kidney disease with heart failure and stage 1 through stage 4 chronic kidney disease, or unspecified chronic kidney disease (principal); I50.43 Acute on chronic combined systolic (congestive) and diastolic (congestive) heart failure; N17.9 Acute kidney failure, unspecified; L97.819 Non-pressure chronic ulcer of other part of right lower leg with unspecified severity; L97.829 Non-pressure chronic ulcer of other part of left lower leg with unspecified severity; I16.0 Hypertensive urgency; N18.30 Chronic kidney disease, stage 3 unspecified; E11.22 Type 2 diabetes mellitus with diabetic chronic kidney disease; E78.5 Hyperlipidemia, unspecified; N50.89 Other specified disorders of the male genital organs; H54.8 Legal blindness, as defined in USA; I83.018 Varicose veins of right lower extremity with ulcer other part of lower leg; I83.028 Varicose veins of left lower extremity with ulcer other part of lower leg; I25.10 Atherosclerotic heart disease of native coronary artery without angina pectoris; I25.2 Old myocardial infarction; R79.89 Other specified abnormal findings of blood chemistry; Z95.5 Presence of coronary angioplasty implant and graft; Z79.4 Long term (current) use of insulin; Z59.89 Other problems related to housing and economic circumstances; Z79.899 Other long term (current) drug therapy; Z91.119 Patient's noncompliance with dietary regimen due to unspecified reason; Z91.199 Patient's noncompliance with other medical treatment and regimen due to unspecified reason; Z91.148 Patient's other noncompliance with medication regimen for other reason
CPT/HCPCS: 36415; 71045; 74176; 80048; 80053; 80076; 81001; 82947; 83605; 83735; 83880; 84484; 85025; 85610; 85730; 87040; 93005; 99285; J1650; J1815; J1940; J3475; P9047

== ENCOUNTER 2023-08-29 19:07 | Inpatient (IN) | payer OTHER ==
[2023-08-29] MEDS ORDERED: ACETAMINOPHEN 500 MG TAB ONE (19:53)
[2023-08-29 19:56] LABS: Absolute Basophils 0.1 K/uL (0-0.5); Absolute Eosinophils 0.1 K/uL (0-0.5); Absolute Lymphocytes (CBC) 1.8 K/uL (0.7-4.9); Absolute Monocytes 0.4 K/uL (0.1-1.3); Absolute Neutrophil 5.7 K/uL (1.8-8.0); Basophils % 1.3 % (0-1.3); Eosinophils % 1.5 % (0-4.4); Hemoglobin 13.2 g/dL (13.6-17.9); Lymphocytes % 22.6 % (15.3-44.8); MCHC 33.9 g/dL (32.0-36.0); MCV 82.6 fL (80-100); MPV 7.9 fL (7.6-11.3); Monocytes % 4.6 % (3.3-12.3); Nucleated Red Blood Cells % 0.1 % (0-0); Platelets 343 thou/uL (152-406); RBC Red Blood Cell Count 4.72 M/uL (4.33-5.43); Red Cell Distribution Width 15.1 % (12.1-15.2)
[2023-08-29 20:00] LABS: PTT, Activated Partial Thromb 32.9 SECONDS (24.3-36.9); Protime INR 1.09
[2023-08-29] MEDS ORDERED: HYDROMORPHONE HCL 1 MG/ML INJ ONE (20:00)
[2023-08-29 20:06] LABS: Albumin 2.4 g/dL (3.4-5.0); Albumin/Globulin Ratio 0.5 (1.1-1.8); Anion Gap 9.8 mEq/L (5.0-15.0); Bilirubin Total 0.4 mg/dL (0.2-1.0); Globulin 4.5 g/dL (2.3-3.5); Potassium 4.8 mEq/L (3.5-5.1); Protein, Total 6.9 g/dL (6.4-8.2)
[2023-08-29] MEDS ORDERED: NA CHLORIDE 0.9% 1,000 ML ONE (20:12)
[2023-08-29] MEDS ORDERED: VANCOMYCIN 1 GM/VIAL ONE (20:57)
[2023-08-29] MEDS ORDERED: NA CHLORIDE 0.9% 250 ML ONE (20:57)
--- NOTE | 2023-08-30 00:15 | EDPHYS ---
Physician Documentation [facility] Name: Eleazar Galvan Sr Age: 52 yrs Sex: Male : 1970 Arrival Date: 08/29/2023 Time: 19:07 Bed 6 Private MD: ED Physician Johnny Hansen HPI: 08/28 19:40 This 52 yrs old [place] Male presents to ER via EMS with complaints of Shortness Of cp Breath, Foot Pain. 19:40 The patient has shortness of breath at rest. cp 19:40 Onset: The symptoms/episode began/occurred gradually. Duration: The symptoms are cp intermittent. Associated signs and symptoms: Pertinent positives: chest pain, fever, lower leg and left foot pain, Pertinent negatives: non-productive cough, productive cough, vomiting. Severity of symptoms: in the emergency department the symptoms are unchanged despite EMS interventions. Historical: - Allergies: 19:23 No Known Allergies; ha1 - PMHx: 19:23 CHF; diabetes mellitus; Hypertensive disorder; legally blind; Myocardial infarction; ha1 Stents x 2; - Immunization history:: Adult Immunizations not up to date. - Social history:: Smoking status: unknown. ROS: 19:45 Constitutional: Positive for chills, fever, cp 19:45 Eyes: Negative for injury, pain, redness, and discharge, cp 19:45 ENT: Negative for drainage from ear(s), ear pain, sore throat, difficulty swallowing, difficulty handling secretions, 19:45 Cardiovascular: Positive for chest pain, edema, 19:45 Respiratory: Positive for shortness of breath, Negative for cough, wheezing, 19:45 Abdomen/GI: Negative for abdominal pain, vomiting, diarrhea, constipation, 19:45 Neuro: Negative for altered mental status, dizziness, headache, 19:45 All other systems are negative, Exam: 19:33 ECG was reviewed by the Attending Physician. cp 19:49 Constitutional: The patient appears in no acute distress, alert, awake, cp non-diaphoretic, non-toxic, well developed, well nourished, febrile, obviously ill, 19:49 Head/Face: Normocephalic, atraumatic. cp 19:49 Eyes: Periorbital structures: appear normal, Conjunctiva: normal, no exudate, no injection, Sclera: no appreciated abnormality, Lids and lashes: appear normal, bilaterally, 19:49 ENT: External ear(s): are unremarkable, Nose: is normal, Mouth: Lips: moist, Oral mucosa: pink and intact, moist, Posterior pharynx: is normal, airway is patent, no erythema, no exudate, 19:49 Neck: ROM/movement: is normal, is supple, without pain, no range of motions limitations, no meningismus, 19:49 Chest/axilla: Inspection: normal, 19:49 Cardiovascular: Rate: tachycardic, Rhythm: regular, Edema: ankle edema, that is moderate, JVD: is not appreciated, 19:49 Respiratory: the patient does not display signs of respiratory distress, Respirations: normal, no use of accessory muscles, no retractions, labored breathing, is not present, Breath sounds: are clear throughout, no decreased breath sounds, no stridor, no wheezing, 19:49 Abdomen/GI: Inspection: abdomen appears normal, Bowel sounds: active, all quadrants, Palpation: abdomen is soft and non-tender, in all quadrants, 19:49 Back: pain, is absent, ROM is normal, 19:49 Musculoskeletal/extremity: Exam of lower extremities shows right lower leg with mild swelling extending from the lower leg, ankle and foot with the desquamation of overlying skin. Exam of the left lower extremity shows marked swelling extending from the lower leg to the ankle and foot, dorsal side of the left foot reveals has marked erythema, skin is warm to the touch in the plantar surface of the left foot has enlarged tender bullae. Vital Signs: 19:08 BP 161 / 115; Pulse 133; Resp 21 S; Temp 100.6(O); Pulse Ox 96% on R/A; Weight 110 kg; ha1 Height 5 ft. 7 in. ; Pain 10/10; 20:09 BP 156 / 105; Pulse 119; Resp 20 S; Pulse Ox 96% on R/A; ha1 21:02 BP 140 / 101; Pulse 109; Resp 20 S; Temp 99.2; Pulse Ox 95% on R/A; ha1 22:04 BP 140 / 106; Pulse 106; Resp 19 S; Pulse Ox 95% on R/A; ha1 23:30 BP 158 / 114; Pulse 107; Resp 20 S; Temp 98.2(O); Pulse Ox 98% on R/A; ha1 04/01 00:10 BP 157 / 115; Pulse 108; Resp 20 S; Pulse Ox 97% on R/A; ha1 01:15 BP 135 / 102; Pulse 103; Resp 16 S; Pulse Ox 96% on R/A; ha1 03:00 BP 157 / 102; Pulse 104; Resp 17 S; Pulse Ox 95% on R/A; ha1 04:00 BP 119 / 90; Pulse 93; Resp 17 S; Pulse Ox 97% on R/A; ha1 08/28 19:08 Body Mass Index 37.98 (110.00 kg, 170.18 cm) [facility] 08/28 19:08 Pain Scale: Adult [facility] MDM: 08/28 19:09 Patient medically screened. cp 20:00 Differential diagnosis: pneumonia, Sepsis DVT, arterial occlusion, cellulitis, cp gangrene, osteomyelitis. 08/29 00:15 Data reviewed: vital signs, nurses notes, lab test result(s), EKG, radiologic studies, cp plain films, ultrasound, and as a result, I will admit patient, administer antibiotics. 02:28 ED course: I just finished speaking with the patient to discuss the issue that his cp insurance is out of network and that if possible I could transfer him to a hospital that is in network with his insurance. Patient declines at this time and request to be admitted to this hospital for continued care for his infected left lower leg and left foot. Registration has also spoken with the patient concerning this issue and he has also refused transfer at this time. 08/28 19:34 Order name: Blood Culture Adult (2) [facility] 08/28 19:34 Order name: CBC with Diff; Complete Time: 20:47 [facility] 08/28 20:47 Interpretation: Normal except: HGB 13.2; HCT 39.0. cp 08/28 19:34 Order name: CMP; Complete Time: 20:47 [facility] 08/28 20:47 Interpretation: Normal except: GLUC 124; BUN 34; CRE 1.87; GFR 42; CA 8.3; ALB 2.4; cp GLOB 4.5; A/G 0.5. 08/28 19:34 Order name: Lactate w/ 2H reflex if indic.; Complete Time: 20:47 [facility] 08/28 20:47 Interpretation: LAC 1.3; Reviewed. cp 08/28 19:34 Order name: Protime (+inr); Complete Time: 20:47 ha1 08/28 19:34 Order name: Ptt, Activated; Complete Time: 20:47 ha1 08/28 20:00 Order name: Troponin High Sensitivity; Complete Time: 20:47 cp 08/28 20:50 Order name: Wound Culture cp 08/29 03:27 Order name: Basic Metabolic Panel EDMS 08/29 03:27 Order name: Basic Metabolic Panel EDMS 08/29 03:27 Order name: CBC with Automated Diff EDMS 08/29 03:27 Order name: CBC with Automated Diff EDMS 08/29 03:27 Order name: Protime (+INR) EDMS 08/29 03:27 Order name: Protime (+INR) EDMS 08/29 03:27 Order name: PTT, Activated Partial Thromb EDMS 08/29 03:27 Order name: PTT, Activated Partial Thromb EDMS 08/29 03:28 Order name: Procalcitonin EDMS 08/29 06:42 Order name: Glucose, Ancillary Testing EDMS 08/28 20:51 Order name: US Lower Extremity Arterial Bilateral cp 08/28 22:31 Order name: US Extremity Venous W Compression Gary cp 08/28 23:29 Order name: XRAY Foot LEFT 2 View cp 08/28 23:29 Order name: XRAY Tib Fib LEFT cp 08/29 03:27 Order name: Case Management Consult EDMS 08/29 03:27 Order name: CONS Physician Consult EDMS 08/29 03:27 Order name: CONS Physician Consult EDMS 08/29 03:27 Order name: CONS [facility] Cons EDMS 08/28 19:34 Order name: Accucheck; Complete Time: 19:52 08/28 19:34 Order name: Cardiac monitoring; Complete Time: 19:34 ha08/28 19:34 Order name: EKG - Nurse/Tech; Complete Time: 19:51 ha08/28 19:34 Order name: IV Saline Lock - Large Bore; Complete Time: 19:34 08/28 19:34 Order name: Labs collected and sent; Complete Time: 19:51 08/28 19:34 Order name: O2 Per Protocol; Complete Time: 19:51 08/28 19:34 Order name: O2 Sat Monitoring; Complete Time: 19:51 08/28 19:34 Order name: Vital Signs; Complete Time: 19:52 ha1 EC/31 19:33 Rate is 131 beats/min. Rhythm is regular. [place] interval is normal. QRS interval is cp normal. QT interval is normal. Interpreted by me. Reviewed by me. Administered Medications: 19:57 Drug: Acetaminophen PO 1000 mg PO once Route: PO; ha1 21:01 Follow up: Response: No adverse reaction; Temperature is decreased ha1 20:04 Drug: HYDROmorphone IVP 1 mg IVP once Route: IVP; Site: right antecubital; ha1 20:30 Follow up: Response: No adverse reaction; Marked relief of symptoms; Pain is decreased; ha1 RASS: Alert and Calm (0) 20:10 Drug: NS 0.9% IV 1000 ml IV at 999 ml/hr Per protocol; 1000 mL bolus Route: IV; Rate: ha1 999 ml/hr; Site: right antecubital; 23:00 Follow up: Response: No adverse reaction; IV Status: Completed infusion; IV Intake: ha1 1000ml 21:11 Drug: vancoMYCIN IVPB 1 grams IVPB once over 2 hrs Route: IVPB; Infused Over: 2 hrs; cm10 Site: right antecubital; 23:10 Follow up: Response: No adverse reaction; IV Status: Completed infusion; IV Intake: ha1 250ml 08/29 00:15 Drug: Cefepime IVPB 1 grams IVPB at 200 ml/hr once over 30 mins; (mix in NS 100 mL) ha1 Route: IVPB; Rate: 200 ml/hr; Infused Over: 30 mins; Site: right antecubital; 00:44 Follow up: Response: No adverse reaction; IV Status: Completed infusion; IV Intake: ha1 100ml 00:40 Drug: Ondansetron IVP 4 mg IVP once; over 2 minutes Route: IVP; Site: right antecubital;ha1 01:16 Follow up: Response: No adverse reaction ha1 00:42 Drug: HYDROmorphone IVP 1 mg IVP once Route: IVP; Site: right antecubital; ha1 01:16 Follow up: Response: No adverse reaction; Pain is decreased; RASS: Alert and Calm (0) ha1 07:46 Not Given (NOT GIVEN BY PREVIOUS SHIFT): [id number] mg IVP once db Disposition Summary: 04/01/24 00:14 Hospitalization Ordered Notes: Hospitalization Status: Inpatient Admission cp Provider: Jame Alcantar cp Condition: Stable cp Problem: new cp Symptoms: have improved cp Bed/Room Type: Standard cp Location: Telemetry/MedSurg (Inpatient)(08/30/23 10:59) bc6 Room Assignment: 408(08/30/23 10:59) 6 Diagnosis - Cellulitis of left lower limb cp - Sepsis, unspecified organism cp Forms: - Medication Reconciliation Form cp - SBAR form cp - Leadership Thank You Letter cp Addendum: 09/02/2023 07:19 Co-signature as Attending Physician, Johnny Hansen MD I reviewed the patient's care r n provided by the Advanced Practice Provider and agree with the diagnosis and treatment plan. Signatures: Dispatcher [employer] EDNJ Johnny Hansen MD MD rn Page, Corey, PA PA cp Greta Hood RN RN Ivania Duggan RN RN 1 [facility] Leslie Dhillon RN RN cm10 Suellen Harris RN db Corrections: (The following items were deleted from the chart) 08/28 19:35 19:35 BLOOD CULTURE*+BA.LAB.BRZ ordered. EDMS EDMS 19:35 19:35 CBC+H.LAB.BRZ ordered. EDMS EDMS 19:35 19:35 COMPREHENSIVE METABOLIC PANEL+C.LAB.BRZ ordered. EDMS EDMS 19:35 19:35 LACTATE+C.LAB.BRZ ordered. EDMS EDMS 19:35 19:35 PROTIME (+INR)+COAG.LAB.BRZ ordered. EDMS EDMS 19:35 19:35 PTT, ACTIVATED+COAG.LAB.BRZ ordered. EDMS EDMS 20:50 20:50 Wound Culture+BA.LAB.BRZ ordered. EDMS EDMS 20:51 20:51 Extrem Venous W Compression Gary+US.RAD.BRZ ordered. EDMS EDMS 21:28 20:50 Foot Left 2 View+RAD.RAD.BRZ ordered. EDMS EDMS 21:28 20:50 Tib Fib Left+RAD.RAD.BRZ ordered. EDNJ EDMS 08/29 00:30 00:14 Telemetry/MedSurg (Inpatient) cp cg 00:30 00:14 cp cg 03:35 08/28 19:49 Musculoskeletal/extremity: Exam of lower extremities shows right lower leg cp with mild swelling extending from the lower leg ankle and foot with the overlying skin dry. Exam of the left lower extremity shows marked swelling extending from the lower leg to the ankle and foot, dorsal side of the left foot reveals has marked erythema, skin is warm to the touch in the plantar surface of the left foot has enlarged tender bullae, there is desquamation of the skin. cp 08/29 10:59 00:30 [facility] ER HOLD cg bc6 10:59 00:30 ERHOLD- cg bc6
--- NOTE | 2023-08-30 00:15 | ER ---
Nurse's Notes [facility] Name: Eleazar Galvan Sr Age: 52 yrs Sex: Male : 1970 Arrival Date: 08/29/2023 Time: 19:07 Bed 6 Private MD: Diagnosis: Cellulitis of left lower limb;Sepsis, unspecified organism Presentation: 08/28 19:08 Chief complaint: EMS states: 52 year old male reports having pain on the left foot, ha1 SOB, wound on the left foot. 19:08 Coronavirus screen: Vaccine status:. Ebola Screen: No symptoms or risks identified at [facility] this time. Initial Sepsis Screen: Does the patient meet any 2 criteria? RR > 20 per min. Temp <36.0*C (96.8*F)) or > 38.3*C (100.9*F). Initial Sepsis Screen: Does the patient have a suspected source of infection? No. Patient's initial sepsis screen is negative. Risk Assessment: Do you want to hurt yourself or someone else? Patient reports no desire to harm self or others. Onset of symptoms was August 29, 2023. 19:08 Method Of Arrival: EMS: [facility] 19:08 Acuity: AURELIA 2 [facility] Triage Assessment: 19:08 General: Appears uncomfortable, Behavior is cooperative. Pain: Complains of pain in ha1 left leg Pain does not radiate. Pain currently is 10 out of 10 on a pain scale. Quality of pain is described as burning, aching, Pain began 2-3 days ago. Neuro: Level of Consciousness is awake, alert, obeys commands, Oriented to person, place, time, situation. Cardiovascular: Patient's skin is warm and dry. Respiratory: Airway is patent Respiratory effort is even, unlabored, Respiratory pattern is regular, symmetrical. GI: No signs and/or symptoms were reported involving the gastrointestinal system. Abdomen is round non-distended. : No signs and/or symptoms were reported regarding the genitourinary system. Derm: Reports wound on the left leg. Musculoskeletal: Circulation, motion, and sensation intact. Historical: - Allergies: 19:23 No Known Allergies; ha1 - PMHx: 19:23 CHF; diabetes mellitus; Hypertensive disorder; legally blind; Myocardial infarction; ha1 Stents x 2; - Immunization history:: Adult Immunizations not up to date. - Social history:: Smoking status: unknown. Screenin:25 Abuse screen: Denies threats or abuse. Denies injuries from another. Nutritional ha1 screening: No deficits noted. Tuberculosis screening: No symptoms or risk factors identified. 22:06 [facility] ED Fall Risk Assessment (Adult) History of falling in the last 3 months, ha1 including since admission Yes- single mechanical fall (1 pt) Confusion or Disorientation No (0 pts) Intoxicated or Sedated No (0 pts) Impaired Gait Yes (1 pt) Mobility Assist Device Used Yes (1 pt) Altered Elimination No (0 pt) Score/Fall Risk Level 3 or more points = High Risk Oriented to surroundings, Maintained a safe environment, Educated pt \T\ family on fall prevention, incl call for assistance when getting out of bed, Hourly rounding (assess needs \T\ fall precautionary measures) done. Assessment: 19:08 Reassessment: see triage assessment. ha1 20:10 Reassessment: Patient and/or family updated on plan of care and expected duration. Pain ha1 level reassessed. 21:02 Reassessment: Patient and/or family updated on plan of care and expected duration. Pain ha1 level reassessed. pain 3/10 Patient states feeling better. 22:10 Reassessment: Patient and/or family updated on plan of care and expected duration. Pain ha1 level reassessed. 22:10 Respiratory: Airway is patent Respiratory effort is even, unlabored, Respiratory ha1 pattern is regular, symmetrical, 23:10 Reassessment: Patient and/or family updated on plan of care and expected duration. Pain ha1 level reassessed. 23:10 Respiratory: Airway is patent Respiratory effort is even, unlabored, Respiratory ha1 pattern is regular, symmetrical. 23:25 Reassessment: Ultrasound in the room. ha1 08/29 00:10 Reassessment: Patient and/or family updated on plan of care and expected duration. Pain ha1 level reassessed. X-ray in the room. 01:10 Reassessment: eyes closed. Respiratory: Airway is patent Respiratory effort is even, ha1 unlabored, Respiratory pattern is regular, symmetrical. 02:10 Reassessment: Patient and/or family updated on plan of care and expected duration. Pain ha1 level reassessed. Respiratory: Airway is patent Respiratory effort is even, unlabored, Respiratory pattern is regular, symmetrical. 03:10 Reassessment: eyes closed. Respiratory: Airway is patent Respiratory effort is even, ha1 unlabored, Respiratory pattern is regular, symmetrical. 04:00 Reassessment: Patient and/or family updated on plan of care and expected duration. Pain ha1 level reassessed. Respiratory: Airway is patent Respiratory effort is even, unlabored, Respiratory pattern is regular, symmetrical. Vital Signs: 08/28 19:08 BP 161 / 115; Pulse 133; Resp 21 S; Temp 100.6(O); Pulse Ox 96% on R/A; Weight 110 kg; ha1 Height 5 ft. 7 in. ; Pain 10/10; 20:09 BP 156 / 105; Pulse 119; Resp 20 S; Pulse Ox 96% on R/A; ha1 21:02 BP 140 / 101; Pulse 109; Resp 20 S; Temp 99.2; Pulse Ox 95% on R/A; ha1 22:04 BP 140 / 106; Pulse 106; Resp 19 S; Pulse Ox 95% on R/A; ha1 23:30 BP 158 / 114; Pulse 107; Resp 20 S; Temp 98.2(O); Pulse Ox 98% on R/A; ha1 04/01 00:10 BP 157 / 115; Pulse 108; Resp 20 S; Pulse Ox 97% on R/A; ha1 01:15 BP 135 / 102; Pulse 103; Resp 16 S; Pulse Ox 96% on R/A; ha1 03:00 BP 157 / 102; Pulse 104; Resp 17 S; Pulse Ox 95% on R/A; ha1 04:00 BP 119 / 90; Pulse 93; Resp 17 S; Pulse Ox 97% on R/A; ha1 08/28 19:08 Body Mass Index 37.98 (110.00 kg, 170.18 cm) ha1 08/28 19:08 Pain Scale: Adult ha1 ED Course: 08/28 19:08 Patient arrived in ED. ty 19:08 Patient has correct armband on for positive identification. Placed in gown. Bed in low ha1 position. Call light in reach. Side rails up X2. 19:08 Warm blanket given. kmf 19:08 Warm blanket given. kmf 19:08 Client placed on continuous cardiac and pulse oximetry monitoring. NIBP monitoring km applied. monitor technician on. 19:08 Arm band placed on right wrist. ha1 19:09 Lam Suazo PA is PHCP. cp 19:09 Johnny Hansen MD is Attending Physician. cp 19:15 Warm blanket given. kmf 19:15 First set of blood cultures drawn by me. kmf 19:15 Inserted saline lock: 20 gauge in right antecubital area, using aseptic technique. [facility] Blood collected. 19:23 Triage completed. ha1 19:30 Second set of blood cultures drawn by me. kmf 19:31 Warm blanket given. kmf 19:52 Blood Culture Adult (2) Sent. ha1 19:52 CBC with Diff Sent. ha1 19:52 CMP Sent. ha1 19:52 Lactate w/ 2H reflex if indic. Sent. ha1 19:52 Protime (+inr) Sent. ha1 19:52 Ptt, Activated Sent. ha1 23:52 US Lower Extremity Arterial Bilateral In Process Unspecified. EDMS 23:54 US Extremity Venous W Compression Gary In Process Unspecified. EDMS 04 00:14 Jame Alcantar MD is Hospitalizing Provider. cp 00:43 XRAY Foot LEFT 2 View In Process Unspecified. EDMS 00:43 XRAY Tib Fib LEFT In Process Unspecified. EDMS 01:23 Provided Education on: medication administration . ha1 05:00 No provider procedures requiring assistance completed. Patient admitted, IV remains in ha1 place. 07:02 Report given to Luis Landry. jw7 07:51 Diet tray given. em1 11:06 Gris Thomason RN is Primary Nurse. ko1 Administered Medications: 08/28 19:57 Drug: Acetaminophen PO 1000 mg PO once Route: PO; ha1 21:01 Follow up: Response: No adverse reaction; Temperature is decreased ha1 20:04 Drug: HYDROmorphone IVP 1 mg IVP once Route: IVP; Site: right antecubital; ha1 20:30 Follow up: Response: No adverse reaction; Marked relief of symptoms; Pain is decreased; ha1 RASS: Alert and Calm (0) 20:10 Drug: NS 0.9% IV 1000 ml IV at 999 ml/hr Per protocol; 1000 mL bolus Route: IV; Rate: ha1 999 ml/hr; Site: right antecubital; 23:00 Follow up: Response: No adverse reaction; IV Status: Completed infusion; IV Intake: ha1 1000ml 21:11 Drug: vancoMYCIN IVPB 1 grams IVPB once over 2 hrs Route: IVPB; Infused Over: 2 hrs; cm10 Site: right antecubital; 23:10 Follow up: Response: No adverse reaction; IV Status: Completed infusion; IV Intake: ha1 250ml 04 00:15 Drug: Cefepime IVPB 1 grams IVPB at 200 ml/hr once over 30 mins; (mix in NS 100 mL) ha1 Route: IVPB; Rate: 200 ml/hr; Infused Over: 30 mins; Site: right antecubital; 00:44 Follow up: Response: No adverse reaction; IV Status: Completed infusion; IV Intake: ha1 100ml 00:40 Drug: Ondansetron IVP 4 mg IVP once; over 2 minutes Route: IVP; Site: right antecubital;ha1 01:16 Follow up: Response: No adverse reaction ha1 00:42 Drug: HYDROmorphone IVP 1 mg IVP once Route: IVP; Site: right antecubital; ha1 01:16 Follow up: Response: No adverse reaction; Pain is decreased; RASS: Alert and Calm (0) ha1 07:46 Not Given (NOT GIVEN BY PREVIOUS SHIFT): [id number] mg IVP once db Medication: 08/28 22:06 VIS not applicable for this client. ha1 Intake: 23:00 IV: 1000ml; Total: 1000ml. ha1 23:10 IV: 250ml; Total: 1250ml. ha1 08/29 00:44 IV: 100ml; Total: 1350ml. ha1 Outcome: 00:14 Decision to Hospitalize by Provider. cp 05:00 Admitted to ER Hold. Please see [facility] for further documentation. ha1 05:00 Condition: stable 05:00 Discharge instructions given to patient, Instructed on the need for admit, Demonstrated understanding of instructions, 12:17 Patient left the ED. ko1 Signatures: Dispatcher [employer] EDMS Elmer Dhillon em1 Lam Suazo PA PA cp Waits, Jodi, RN RN jw7 Ivania Duggan RN RN ha1 Gris Thomason RN RN ko1 Leslie Dhillon RN RN cm10 Josefina Burr kmf Galo, Suellen Heller RN db
[2023-08-30] MEDS ORDERED: CEFEPIME 1 GM/VIAL ONE (00:17)
[2023-08-30] MEDS ORDERED: NA CHLORIDE 0.9% 100 ML ONE (00:17)
[2023-08-30] MEDS ORDERED: HYDROMORPHONE HCL 1 MG/ML INJ ONE (00:40)
[2023-08-30] MEDS ORDERED: ONDANSETRON 4 MG/2 ML VIAL ONE (00:40)
--- NOTE | 2023-08-30 02:17 | P.PN ---
Date of Service: 08/30/23 Patient is a 52-year-old gentleman who came to the hospital with a left foot wound. Patient apparently had on his wraps around his foot very tightly which created a blister. The blister is apparently come off his foot and is created a really large wound around the whole area of the foot. Patient is getting further workup at this time with x-rays and other diagnostic studies in the emergency room. Patient was seen a few weeks ago, and at that time after case management had looked into it it was found that patient was out of network at our hospital. Reviewed case planner notes and his insurance company [employer], stated the patient is out of network with this facility. Since patient was stable and he needs additional workup it was requested that patient be transferred to an in-network facility: [facility], [facility], or [facility]. The number they left as well as was [phone]. After reviewing the chart I spoke to the provider who is caring for the patient. I informed them that patient was out of network with our facility. Because he was out of network and this was not a life-threatening emergency, I requested that patient be transferred to an in network facility as mentioned above.
[2023-08-30] MEDS ORDERED: ONDANSETRON 4 MG/2 ML VIAL IV PRN (03:16)
--- NOTE | 2023-08-30 03:30 | P.HP ---
Certification for Inpatient Patient admitted to: Inpatient With expected LOS: >2 Midnights Patient will require the following post-hospital care: None Practitioner: I am a practitioner with admitting privileges, knowledge of patient current condition, hospital course, and medical plan of care. Services: Services provided to patient in accordance with Admission requirements found in Title 42 Section 412.3 of the Code of Federal Regulations Patient History Date of Service: 08/30/23 Reason for admission: Left foot pain History of Present Illness: Patient is a 52-year-old gentleman came to the hospital with pain in the left foot. Patient has a history of lymphedema, diabetes, congestive heart failure and hypertension who presents to the emergency room with pain in the left foot. Patient has an open wound to the left foot. Patient uses his own wraps and Curlex to wrap his legs. He thinks that keeps his lymphedema under control. However, he had the wraps really tight on the left foot and he kept it on for 3 days. The left foot looks like it was swollen quite extensively and the ankles were indented. The swelling above the wraps has significant edema. Patient had multiple blisters on the toes of the left foot and it appears that he had a large blister on the dorsal aspect of the left foot that appeared to have come off. Patient's wound is draining quite extensively. Patient will need wound care to the left foot. Because of patient's history of lymphedema he will need extensive diuresing to try to get the swelling down to allow the left foot wound to heal. Will get wound healing consultation as well as general surgery consultation. Will get an infectious disease consultation and will get cultures placed. Patient will need to be evaluated for inpatient hospitalization and wound care. On patient's last admission, case management was able to identify that patient had insurance. Patient's insurance was out of network to our hospital and I requested that emergency room providers speak with patient and explained to him the situation regarding him being out of network. I was informed that patient refused transfer. Emergency room physicians requested for me to see the patient . Spoke to the patient regarding what was documented on his last admission regarding his benefits and the hospitals that were in network. However, he did not want to talk about this because of the stress that he was dealing with as he was trying to get his disability. I'm not sure if he is able to make a sound decision right now as he appears to be really upset. He said transferring was too much to think about at this time. Will have case management talk with the patient in the morning. Patient will need wound care and will need to get patient set up with antibiotics. Cultures are pending. Patient will probably benefit from a intermediate facility placement as he has multiple wounds on the left foot. Will go ahead and admit the patient to the hospital for inpatient hospitalization, and will await for recommendations from our consultants. Will also begin working on discharge planning at this time. Allergies No Known Allergies Allergy (Unverified 09/04/17 16:23) Home Medications: Insulin Detemir [Levemir Flexpen] 16 units SQ DAILY 07/18/23 Amlodipine [Norvasc*] 10 mg PO DAILY tab 07/21/23 Amlodipine [Norvasc*] 10 mg PO DAILY 30 Days #30 tab 07/21/23 Insulin -Regular Human [Novolin -R*] See Protocol SQ ACHS ml 07/21/23 Insulin Glargine,Hum.rec.anlog [Semglee] 16 unit SQ DAILY 30 Days #100 ml 07/21/23 Losartan Potassium [Cozaar*] 100 mg PO BID 6AM 6PM 30 Days #30 mg 07/21/23 Metoprolol Tartrate [Lopressor*] 75 mg PO BID 6AM 6PM 30 Days #90 tab 07/21/23 Quetiapine Fumarate [Seroquel] 300 mg PO BEDTIME 30 Days #30 mg 07/21/23 hydroCHLOROthiazide [Hydrochlorothiazide] 25 mg PO Q48H 30 Days #30 mg 07/21/23 traMADol HCL [Ultram*] 50 mg PO TID PRN tab 07/21/23 - Past Medical/Surgical History Diabetic: Yes -: Congestive heart failure -: Coronary artery disease with 2 cardiac stents -: Hypertension -: Hyperlipidemia -: Diabetes -: Lymphedema -: Cardiac stents - Family History Mother Medical History: Cancer Father Medical History: Diabetes, Kidney disease - Social History Smoking Status: Former smoker Alcohol use: No CD- Drugs: No Caffeine use: Yes Review of Systems 10-point ROS is otherwise unremarkable Physical Examination - Vital Signs Temperature: 98 F Blood Pressure: 150/100 Pulse: 80 Respirations: 18 Pulse Ox (%): 95 - Physical Exam General: Alert, In no apparent distress, Oriented x3 HEENT: Atraumatic, Mucous membr. moist/pink, Other (Pupils are sluggish), EOMI, Sclerae nonicteric Neck: Supple, 2+ carotid pulse no bruit, No LAD, Without JVD or thyroid abnormality Respiratory: Clear to auscultation bilaterally, Normal air movement Cardiovascular: Regular rate/rhythm, Normal S1 S2, Systolic murmur Gastrointestinal: Normal bowel sounds, Soft and benign, Non-distended, No tenderness Musculoskeletal: No clubbing, Swelling Integumentary: Skin lesion, Tenderness/swelling, Erythema, Warmth, Other (Patient has multiple bullous lesions on the dorsal aspect of the left foot) Neurological: Normal speech, Normal strength at 5/5 x4 extr, Normal tone, Normal affect, Other (Poor vision), Abnormal gait, Abnormal sensation (Diminished sensation in the bilateral feet) Lymphatics: No axilla or inguinal lymphadenopathy - Studies Laboratory Data (last 24 hrs) 08/29/23 08/29/23 08/29/23 19:15 19:15 19:15 WBC 8.10 Hgb 13.2 L Hct 39.0 L Plt Count 343 PT 12.0 INR 1.09 APTT 32.9 Sodium 139 Potassium 4.8 BUN 34 H Creatinine 1.87 H Glucose 124 H Total Bilirubin 0.4 AST 23 ALT 28 Alkaline Phosphatase 88 Assessment & Plan - Problems (Diagnosis) (1) Bullous lesion Current Visit: Yes Status: Acute (2) Wound of foot Current Visit: Yes Status: Acute (3) Acquired lymphedema of leg Current Visit: No Status: Acute (4) Acute on chronic heart failure Current Visit: No Status: Acute (5) Anasarca Current Visit: No Status: Acute (6) CKD (chronic kidney disease) stage 3, GFR 30-59 ml/min Current Visit: No Status: Acute (7) Uncontrolled hypertension Current Visit: Yes Status: Acute (8) Type 2 diabetes mellitus Current Visit: Yes Status: Acute (9) Bipolar disorder Current Visit: Yes Status: Acute (10) Decreased vision Current Visit: Yes Status: Acute - Plan Plan: 1. Patient with multiple bullous lesions on the dorsal aspect of the left foot in a patient with a known history of diabetes and lymphedema; continue with diuresing and IV antibiotic therapy. Will get wound healing consult. Will consult infectious disease and general surgery for further evaluation. Patient will need prolonged wound care to allow that bullous lesion on the left foot heel. Will continue with antibiotics and strict blood sugar control. Will continue with aggressive diuresing at this time. Strict I's and O's. Patient will need prolonged hospital care or placement at a intermediate facility for prolonged wound care. We will continue with diuresing and antibiotics and Silvadene ointment to that left foot. 2. History of metabolic syndrome; patient with hypertension/type 2 diab etes/morbid obesity/dyslipidemia; continue with supportive care and home medications. Insulin will be continued. Check hemoglobin A1c and monitor hemodynamics closely 3. Chronic kidney disease; GFR is stable. Continue monitoring renal function closely 4. HFpEF; continue with diuresing patient. Continue with cardiac meds 5. Patient with bipolar disorder-will need to be on a mood stabilizer 6. Poor vision; patient only sees blurred images most likely related to diabetic retinopathy. Outpatient follow-up with ophthalmology 7. GI and DVT prophylaxis Discharge Plan: [facility] Plan to discharge in: Greater than 2 days - Advance Directives Does patient have a Living Will: No Does patient have a Durable POA for Healthcare: No - Code Status/Comfort Care Code Status Assessed: Yes Code Status: Full Code Critical Care: No Time Spent Managing PTS Care (In Minutes): 45 Date of Service: 08/30/23: Echocardiogram results: COMMENTS: 1. MILDLY DEPRESSED LEFT VENTRICULAR EJECTION FRACTION 40-45% 2. MILD GLOBAL HYPOKINESIS 3. MODERATE DIASTOLIC DYSFUNCTION 4. LEFT ATRIAL ENLARGEMENT 5. MILD MITRAL REGURGITATION, TRICUSPID REGURGITATION, PULMONIC INSUFFICIENCY 6. RIGHT VENTRICULAR SYSTOLIC PRESSURE IS NORMAL, LESS THAN 25 mmHg
[2023-08-30] MEDS: ALBUMIN HUMAN 25% 50 ML IV ONE (04:47)
[2023-08-30] MEDS: VANCOMYCIN 1 GM in NA CHLORIDE 0.9% 250 ML IVPB ONE (05:00)
[2023-08-30] MEDS ORDERED: Levofloxacin 750mg IV 750 MG/150 ML BAG IV ONE (05:50)
[2023-08-30] MEDS ORDERED: VANCOMYCIN 1 GM/VIAL ONE (05:50)
[2023-08-30] MEDS ORDERED: FUROSEMIDE 20 MG/ 2ML VIAL ONE ×2 (05:50→06:17)
[2023-08-30] MEDS ORDERED: NA CHLORIDE 0.9% 250 ML ONE (05:50)
[2023-08-30] MEDS ORDERED: ALBUMIN HUMAN 25% 50 ML IV ONE (05:51)
[2023-08-30] MEDS: LOSARTAN POTASSIUM 50 MG TABLET PO SCH (06:00)
[2023-08-30] MEDS: Levofloxacin 750mg IV 750 MG/150 ML BAG IV SCH (06:00)
[2023-08-30] MEDS: METOPROLOL TAR 50 MG TAB PO SCH (06:00)
[2023-08-30] MEDS ORDERED: HYDROMORPHONE HCL 0.5 MG/0.5 ML INJ ONE (06:16)
[2023-08-30] MEDS ORDERED: LOSARTAN POTASSIUM 50 MG TABLET ONE (06:17)
[2023-08-30] MEDS ORDERED: INSULIN GLARGINE 100 UNIT/ML SQ ONE (06:17)
[2023-08-30] MEDS ORDERED: METOPROLOL TAR 50 MG TAB ONE (06:17)
[2023-08-30 06:19] LABS: Absolute Basophils 0.1 K/uL (0-0.5); Absolute Eosinophils 0.1 K/uL (0-0.5); Absolute Lymphocytes (CBC) 1.7 K/uL (0.7-4.9); Absolute Monocytes 0.7 K/uL (0.1-1.3); Absolute Neutrophil 4.9 K/uL (1.8-8.0); Basophils % 0.8 % (0-1.3); Hematocrit 37.4 % (39.6-49.0); Hemoglobin 12.5 g/dL (13.6-17.9); Lymphocytes % 23.3 % (15.3-44.8); MCH 28.1 pg (27.0-35.0); MCHC 33.5 g/dL (32.0-36.0); MCV 83.9 fL (80-100); Neutrophils % 65.9 % (41.7-73.7); Platelets 266 thou/uL (152-406); RBC Red Blood Cell Count 4.46 M/uL (4.33-5.43); Red Cell Distribution Width 14.9 % (12.1-15.2)
[2023-08-30 06:27] LABS: Anion Gap 7.3 mEq/L (5.0-15.0); Potassium 4.3 mEq/L (3.5-5.1)
[2023-08-30 06:29] LABS: PT Prothrombin Time 12.1 SECONDS (9.5-12.5); Protime INR 1.1
[2023-08-30] MEDS: HYDROMORPHONE HCL 1 MG/ML INJ IV PRN (06:43)
[2023-08-30] MEDS: FUROSEMIDE 20 MG/ 2ML VIAL IV ONE (06:43)
[2023-08-30] MEDS: INSULIN GLARGINE 100 UNIT/ML SQ SCH (06:43)
--- NOTE | 2023-08-30 07:32 | RAD REPORT ---
EXAM DESCRIPTION: US - Extrem Venous W Compress Gary - 08/29/2023 11:52 pm CLINICAL HISTORY: Pain;Swelling COMPARISON: Extrem Venous W Compress Gary dated 06/07/2023 TECHNIQUE: Real-time sonographic evaluation of the lower extremity deep venous systems was performed using color Doppler, grayscale, and compression. FINDINGS: Bilateral lower extremities. Normal compressibility, flow augmentation, phasic flow and spontaneous flow is identified in both the left and right lower extremity deep venous systems. No intraluminal filling defects seen. IMPRESSION: No DVT in either lower extremity.
--- NOTE | 2023-08-30 07:35 | RAD REPORT ---
EXAM DESCRIPTION: US - Lower Extremity Arterial Bilat - 08/29/2023 11:50 pm CLINICAL HISTORY: Swelling COMPARISON: None FINDINGS: Color Doppler, grayscale, and spectral analysis was performed. Right lower extremity: Triphasic waveforms in the common femoral artery, superficial femoral artery, and popliteal artery. Monophasic flow present within the posterior tibial artery. Biphasic flow is pr esent at the dorsalis pedis artery. Left lower extremity: Monophasic waveforms throughout the left lower extremity. IMPRESSION: Left lower extremity: Monophasic waveforms throughout the left lower extremity could be secondary to a moderate to severe inflow stenosis proximally such as at the level of the iliac arteri es. Right lower extremity: Monophasic waveforms within the posterior tibial artery consistent with a mode rate to severe stenosis. Multiphasic waveforms otherwise in the right lower extremity.
[2023-08-30] MEDS: INFLUENZA VACCINE (for 6+ mo) 0.5 ML DOSE IMVAC ONE (08:00)
[2023-08-30] MEDS: ALBUMIN HUMAN 25% 12.5 GM, FUROSEMIDE 100 MG in NA CHLORIDE 0.9% 40 ML IV SCH (08:00)
[2023-08-30] MEDS: SILVER SULFADIAZINE 1% 25 GM TOP SCH (09:00)
--- NOTE | 2023-08-30 09:01 | P.CNS ---
Date of Consult: 08/30/23 Reason for Consult: cellulitis Chief Complaint: Left foot pain History of Present Illness: Pt is a 52 yo M with a PMH of lymphedema, diabetes, congestive heart failure and hypertension who presented to the ED with complaints of left foot wound and pain. Patient admitted for LLE cellulitis, he was started on empiric antibiotics. Infectious disease consulted. Allergies No Known Allergies Allergy (Unverified 09/04/17 16:23) Home medications list reviewed: Yes Home Medications: Insulin Detemir [Levemir Flexpen] 16 units SQ DAILY 07/18/23 Amlodipine [Norvasc*] 10 mg PO DAILY tab 07/21/23 Amlodipine [Norvasc*] 10 mg PO DAILY 30 Days #30 tab 07/21/23 Insulin -Regular Human [Novolin -R*] See Protocol SQ ACHS ml 07/21/23 Insulin Glargine,Hum.rec.anlog [Semglee] 16 unit SQ DAILY 30 Days #100 ml 07/21/23 Losartan Potassium [Cozaar*] 100 mg PO BID 6AM 6PM 30 Days #30 mg 07/21/23 Metoprolol Tartrate [Lopressor*] 75 mg PO BID 6AM 6PM 30 Days #90 tab 07/21/23 Quetiapine Fumarate [Seroquel] 300 mg PO BEDTIME 30 Days #30 mg 07/21/23 hydroCHLOROthiazide [Hydrochlorothiazide] 25 mg PO Q48H 30 Days #30 mg 07/21/23 traMADol HCL [Ultram*] 50 mg PO TID PRN tab 07/21/23 - Past Medical/Surgical History Diabetic: Yes -: Congestive heart failure -: Coronary artery disease with 2 cardiac stents -: Hypertension -: Hyperlipidemia -: Diabetes -: Lymphedema -: Cardiac stents - Family History Mother Medical History: Cancer Father Medical History: Diabetes, Kidney disease - Social History Alcohol use: No CD- Drugs: No Caffeine use: Yes Review of Systems Integumentary: As per HPI Physical Examination Temp Pulse Resp BP Pulse Ox 98.8 F 91 H 15 122/60 98 08/30/23 08:00 08/30/23 08:00 08/30/23 08:00 08/30/23 08:00 08/30/23 08:00 General: In no apparent distress, Oriented x3 HEENT: Atraumatic Respiratory: Clear to auscultation bilaterally, Normal air movement Cardiovascular: Regular rate/rhythm, Edema (BLE) Gastrointestinal: Normal bowel sounds, Soft and benign, Non-distended Integumentary: Skin lesion (left foot), Tenderness/swelling (LLE) Laboratory Data - Reviewed Microbiology Data - Reviewed Imagings Data: - Reviewed Conclusions/Impression: Problem List LLE Cellulitis Lymphedema Diabetes Mellitus type II Hypertension Hyperlipidemia Metabolic Syndrome CKD stage III Bipolar Disorder LLE Cellulitis Lymphedema - left foot wound culture 08/28: pending - blood cultures 08/28: pending - Currently on Levaquin and Vancomycin (started 08/29) Recommendations - 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 -> Recommend starting on Meropenem 1g IV Q12H. Discontinue Levaquin. Continue Vancomycin for now. - Follow up with wound and blood culture results. Will adjust antibiotics as appropriate. - wound care per wound care / surgery team. keep legs elevated. - Monitor CBC, BMP and vanco troughs - strict blood glucose control - continue supportive care Case discussed with Iman Child
[2023-08-30] MEDS ORDERED: LORazepam 2 MG/ML VIAL ONE (11:55)
[2023-08-30] MEDS: LORazepam 2 MG/ML VIAL IV PRN (12:01)
--- NOTE | 2023-08-30 12:20 | P.PN ---
Date of Service: 08/30/23 Pt seen and examined. Pt is a 52 yo male who presents with left foot infection / cellulitis. He was admitted for the medical problems listed below Left leg cellulitis: Pt has multiple bullous lesions on the dorsal aspect of the left foot. Will continue iv vanc and merrem. Will f/u wound cx and blood cx. Consulted ID and Gen surgeon. Continue wound care. Lymphedema: Will keep legs elevated. DM II: Continue accuchek, SSI and ADA diet Hypertension: Continue home meds. HLD: statin Metabolic syndrome: Pt had DM II/ HLD/type 2 diabetes/morbid obesity: Will continue with supportive care and home medications. Insulin will be continued. Check hemoglobin A1c and monitor hemodynamics closely. Hx of Chronic kidney disease, stage 3: GFR is stable. Cr is 1.78. Will avoid nephrotoxins and monitor renal function. Hx of HFpEF: Continue lasix, strict I/O, daily weight and low salt diet. Hx of Bipolar disorder: Continue mood stabilizer Poor vision: Likely due to DM retinopathy. Will control serum glucose and follow up with ophthalmology GI ppx: protonix DVT ppx: lovenox DIspo: Pending hospital course
--- NOTE | 2023-08-30 13:24 | RAD REPORT ---
EXAM DESCRIPTION: RAD - Foot Left 2 View - 08/30/2023 12:42 am CLINICAL HISTORY: PAIN COMPARISON: None. TECHNIQUE: XR FOOT 1-2 VIEWS LEFT 08/29/2023 11:29 PM CDT FINDINGS: There is no fracture. Joint spaces are preserved. There is moderate dorsal soft tissue s welling. IMPRESSION: No acute osseous findings. Electronically signed by: Edmar Mccracken MD 08/30/2023 12:53 AM CDT Due to temporary technical issues with the PACS/Fluency reporting system, reports are being signed by the in house radiologist without review as a courtesy to ensure prompt reporting. The interpreting r adiologist is fully responsible for the content of the report.
--- NOTE | 2023-08-30 13:26 | RAD REPORT ---
EXAM DESCRIPTION: RAD - Tib Fib Left - 08/30/2023 12:42 am CLINICAL HISTORY: PAIN COMPARISON: None. TECHNIQUE: XR TIBIA FIBULA LEFT 08/29/2023 11:29 PM CDT FINDINGS: There is no fracture. Joint spaces are preserved. There is moderate soft tissue swelling surrounding the ankle. IMPRESSION: No acute osseous findings. Electronically signed by: Edmar Mccracken MD 08/30/2023 12:54 AM CDT Due to temporary technical issues with the PACS/Fluency reporting system, reports are being signed by the in house radiologist without review as a courtesy to ensure prompt reporting. The interpreting r adiologist is fully responsible for the content of the report.
--- NOTE | 2023-08-30 13:39 | EKG ---
Test Date: 2023-08-29 Test Time: 19:26:45 Radio Message Router: SARITA MEASUREMENT RESULTS: Intervals: Rate: 131 DE: 138 QRSD: 82 QT: 298 QTc: 440 [place]: P: 67 DE: 138 QRS: 87 T: -42 INTERPRETIVE STATEMENTS: Sinus tachycardia with occasional premature ventricular complexes T wave abnormality, consider lateral ischemia Abnormal ECG Compared to ECG 07/18/2023 17:23:00 Ventricular premature complex(es) now present Possible ischemia now present T-wave abnormality still present Electronically Signed On 08-30-23 13:36:23 CDT by Cosmo Carvajal
[2023-08-30] MEDS: HYDROMORPHONE HCL 0.5 MG/0.5 ML INJ IV PRN (17:19)
[2023-08-30] MEDS: Meropenem 1,000 MG in NA CHLORIDE 0.9% 100 ML IV SCH (20:47)
[2023-08-30] MEDS: HEPARIN 5000 UNIT/ML 1 ML VIAL SQ SCH (20:51)
[2023-08-30] MEDS: VANCOMYCIN 1.5 GM in NA CHLORIDE 0.9% 500 ML IVPB SCH (20:52)
[2023-08-30 21:09] LABS: Specific Gravity 1.012 (1.005-1.030); Sqamous Epithelial None Seen /HPF (None Seen); Urine Bacteria <20 /HPF (<20); Urine Bilirubin NEGATIVE (Negative); Urine Blood 1+ (Negative); Urine Clarity Turbid (Clear); Urine Color Light-Yellow (Yellow); Urine Crystals Unidentified Few /HPF (None Seen); Urine Culture Reflex Order NOT NEEDED; Urine Glucose NEGATIVE (Negative); Urine Ketones NEGATIVE (Negative); Urine Microscopic Reflex YN ORDER UMIC; Urine Mucus Slight /HPF (None Seen); Urine Nitrite NEGATIVE (Negative); Urine Protein 2+ (Negative); Urine Sperm Present (None Seen); Urine Urobilinogen Normal (Normal); Urine WBC <5 /HPF (<5); Urine pH 5.5 (5.0-7.0)
[2023-08-31] MEDS: SILVER SULFADIAZINE 1% 50 GM TOP SCH (09:00)
--- NOTE | 2023-08-31 09:32 | P.PN ---
Subjective Date of Service: 09/01/23 Chief Complaint: Left foot pain Presented for wound on left foot, history of lymphedema, bilateral lower extremity edema No reported fever overnight, dressing to the left lower extremity changed daily by nurses, Pain control with as needed analgesia - Physical Exam General: Alert, In no apparent distress, Oriented x3 HEENT: Atraumatic, Mucous membr. moist/pink, Other (Pupils are sluggish), EOMI, Sclerae nonicteric Neck: Supple, 2+ carotid pulse no bruit, No LAD, Without JVD or thyroid abnormality Respiratory: Clear to auscultation bilaterally, Normal air movement Cardiovascular: Regular rate/rhythm, Normal S1 S2, Systolic murmur Gastrointestinal: Normal bowel sounds, Soft and benign, Non-distended, No tenderness Musculoskeletal: No clubbing, Swelling Integumentary: Skin lesion, Tenderness/swelling, Erythema, Warmth, Other (Patient has multiple bullous lesions on the dorsal aspect of the left foot) covered with a dry dressing and Xeroform Neurological: Normal speech, Normal strength at 5/5 x4 extr, Normal tone, Normal affect, Other (Poor vision), Abnormal gait, Abnormal sensation (Diminished sensation in the bilateral feet) Lymphatics: No axilla or inguinal lymphadenopathy <Susan Mckeon - Last Filed: 09/01/23 14:39> Date of Service: 08/31/23 <Jame Alcantar - Last Filed: 09/06/23 11:36> Review of Systems Per HPI <Susan Mckeon - Last Filed: 09/01/23 14:39> Physical Examination - Vital Signs Temperature: 97.2 F Blood Pressure: 122/83 Pulse: 75 Respirations: 16 Pulse Ox (%): 97 - Studies Microbiology Data (last 24 hrs): 08/29/23 20:47 Wound - Left Foot Gram Stain - Final <Susan Mckeon - Last Filed: 09/01/23 14:39> Assessment And Plan - Plan Assessment plan Left lower extremity foot wound Venous stasis ulcer RLE Bullous lesion left lower extremity Lymphedema lower extremity Anasarca IV antibiotics vancomycin Merrem, as needed analgesics Wound care to to eval lower extremity Patient will need prolonged hospital care or placement at a detention facility for prolonged wound care. We will continue with diuresing and antibiotics and Silvadene ointment to that left foot. Fall precaution, I's and O's Wound culture, blood culture lower extremity wound Infectious disease following left foot wound culture 08/28: Enterobacter cloacae and Serratia marcescens blood cultures 08/28: No growth to date Currently on Meropenem and Vancomycin (started 08/29) Recommend continuing with meropenem IV for 14 days. Continue Vancomycin for now, consider switching to Doxycycline PO tomorrow to complete remainder of antibiotic course wound care per wound care / surgery team. keep legs elevated. Monitor CBC, BMP and vanco troughs. Renally dose medications. strict blood glucose control continue supportive care No leukocytosis HFpEF continue with diuresing patient as tolerated. Continue with cardiac meds Albumin for hypotension, midodrine CKD stage III Avoid nephrotoxic medication Trend kidney function Uncontrolled hypertension Hyperlipidemia Chronic pain Resume home antihypertensive As needed analgesic Diabetes mellitus unknown control Educated on strict blood glucose control Sliding scale insulin, long-acting insulin Bipolar disorder Decreased vision, patient blind, fall precautions, supportive care Patient with bipolar disorder-will need to be on a mood stabilizer Onychomycosis Full code DVT Diet diabetic Disposition prior to admission Home with home health, patient will need detention facility Discharge Plan: Home - Code Status/Comfort Care Code Status: Full Code Critical Care: No Time Spent Managing PTS Care (In Minutes): 35 <Susan Mckeon - Last Filed: 09/01/23 14:39> - Current Problems (Diagnosis) (1) Bullous lesion Current Visit: Yes Status: Acute (2) Wound of foot Current Visit: Yes Status: Acute (3) Acquired lymphedema of leg Current Visit: No Status: Acute (4) Acute on chronic heart failure Current Visit: No Status: Acute (5) Anasarca Current Visit: No Status: Acute (6) CKD (chronic kidney disease) stage 3, GFR 30-59 ml/min Current Visit: No Status: Acute (7) Uncontrolled hypertension Current Visit: Yes Status: Acute (8) Type 2 diabetes mellitus Current Visit: Yes Status: Acute (9) Bipolar disorder Current Visit: Yes Status: Acute (10) Decreased vision Current Visit: Yes Status: Acute <Jame Alcantar - Last Filed: 09/06/23 11:36> Date of Service: 08/31/23 Patient was seen and examined. Events of the last 24 hours have been noted. Spoke with with JT regarding patient's clinical picture after evaluating and examining the patient independently. I performed a substantial part of the MDM during this patient's care today. I personally made or approved the documented management plan and acknowledge its risk of complications. I agree with the findings and documentation provided in the JT's notes. Patient doing better with wound care. Clinically appears to be improved. Continue with wound care therapy. Did speak to patient about wrapping his leg to tightly as that was the causation of the blistering on his foot. He does need 24/7 care as he does not have someone at home to really care for him around the clock. Once his wound heals up he does better with therapy could possibly go home. Arranging for detention facility placement. <Jame Alcantar - Last Filed: 09/06/23 11:36>
--- NOTE | 2023-08-31 09:35 | P.PN ---
Date of Service: 08/31/23 Infectious Disease Progress Note Chief Complaint: Left foot pain Subjective: No acute events overnight. In no apparent distress. +LLE pain Physical Examination Temp Pulse Resp BP Pulse Ox 97.2 F 75 16 122/83 97 08/31/23 08:00 08/31/23 08:00 08/31/23 08:05 08/31/23 08:00 08/31/23 08:00 General: In no apparent distress, Oriented x3 HEENT: Atraumatic Respiratory: Clear to auscultation bilaterally, Normal air movement Cardiovascular: Regular rate/rhythm. BLE edema/lymphedema. Gastrointestinal: Normal bowel sounds, Soft and benign, Non-distended Integumentary: Skin lesion left foot, left lower extremity. Venous stasis ulcer RLE. Onychomycosis. 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 -> Continue Meropenem and Vancomycin for now - Follow up with wound and blood culture results. Will adjust antibiotics as appropriate. - wound care per wound care / surgery team. keep legs elevated. - Monitor CBC, BMP and vanco troughs. Renally dose medications. - strict blood glucose control - continue supportive care Case discussed with Iman Child
[2023-08-31 13:22] VITALS: BMI 35.8
[2023-09-01 06:56] LABS: Anion Gap 9.5 mEq/L (5.0-15.0); Potassium 4.5 mEq/L (3.5-5.1)
[2023-09-01 07:11] LABS: Absolute Eosinophils 0.2 K/uL (0-0.5); Absolute Lymphocytes (CBC) 1.2 K/uL (0.7-4.9); Absolute Monocytes 0.6 K/uL (0.1-1.3); Basophils % 0.7 % (0-1.3); Eosinophils % 3.1 % (0-4.4); Hematocrit 36.2 % (39.6-49.0); Hemoglobin 12.1 g/dL (13.6-17.9); Lymphocytes % 19.4 % (15.3-44.8); MCH 27.9 pg (27.0-35.0); MCHC 33.5 g/dL (32.0-36.0); MCV 83.4 fL (80-100); MPV 8.2 fL (7.6-11.3); Monocytes % 9.7 % (3.3-12.3); Neutrophils % 67.1 % (41.7-73.7); Platelets 264 thou/uL (152-406); RBC Red Blood Cell Count 4.33 M/uL (4.33-5.43); Red Cell Distribution Width 14.7 % (12.1-15.2)
[2023-09-01] MEDS: Meropenem 1,000 MG in NA CHLORIDE 0.9% 100 ML IV SCH (08:43)
--- NOTE | 2023-09-01 09:33 | P.PN ---
Date of Service: 09/01/23 Infectious Disease Progress Note Subjective: + LLE pain. In no apparent distress. No acute events overnight. Physical Examination Temp Pulse Resp BP Pulse Ox 97 F 69 16 196/81 H 95 09/01/23 08:00 09/01/23 08:00 09/01/23 08:00 09/01/23 08:00 09/01/23 08:00 General: In no apparent distress, Oriented x3 HEENT: Atraumatic Respiratory: Clear to auscultation bilaterally, Normal air movement Cardiovascular: Regular rate/rhythm. BLE edema/lymphedema. Gastrointestinal: Normal bowel sounds, Soft and benign, Non-distended Integumentary: Left anterior lower leg venous ulcer full thickness. Left lateral ankle venous ulcer full thickness. Left medial ankle venous ulcer partial thickness. Blisters left toes. Venous stasis ulcer RLE. Onychomycosis. Laboratory Data - Reviewed Microbiology Data - Reviewed Imagings Data: - Reviewed Medications List: Reviewed Assessment and Plan Problem List LLE Cellulitis Lymphedema Diabetes Mellitus type II Hypertension Hyperlipidemia Metabolic Syndrome CKD stage III Bipolar Disorder LLE Cellulitis Lymphedema - left foot wound culture 08/28: Enterobacter cloacae and Serratia marcescens - blood cultures 08/28: No growth to date - Currently on Meropenem and Vancomycin (started 08/29) No leukocytosis Afebrile Recommendations - Cellulitis: Continue antibiotic therapy for 14 days (08/29-09/12). Wound culture growing MDR enterobacter and serratia. -> Continue Meropenem and Vancomycin for now Recommend continuing with meropenem IV for 14 days. Continue Vancomycin for now, consider switching to Doxycycline PO tomorrow to complete remainder of antibiotic course - wound care per wound care / surgery team. keep legs elevated. - Monitor CBC, BMP and vanco troughs. Renally dose medications. - strict blood glucose control - continue supportive care Case discussed with Iman Child
[2023-09-01] MEDS: ALBUMIN HUMAN 25% 12.5 GM, FUROSEMIDE 100 MG in NA CHLORIDE 0.9% 40 ML IV SCH (11:51)
[2023-09-01] MEDS: VANCOMYCIN 1.25 GM in NA CHLORIDE 0.9% 250 ML IVPB SCH (20:56)
[2023-09-02 06:04] LABS: Absolute Basophils 0.1 K/uL (0-0.5); Absolute Eosinophils 0.3 K/uL (0-0.5); Absolute Monocytes 0.6 K/uL (0.1-1.3); Absolute Neutrophil 3.1 K/uL (1.8-8.0); Basophils % 1.3 % (0-1.3); Eosinophils % 6.7 % (0-4.4); Hematocrit 34.4 % (39.6-49.0); Hemoglobin 11.5 g/dL (13.6-17.9); Lymphocytes % 19.7 % (15.3-44.8); MCHC 33.5 g/dL (32.0-36.0); MCV 83.5 fL (80-100); MPV 7.7 fL (7.6-11.3); Monocytes % 11.7 % (3.3-12.3); Neutrophils % 60.6 % (41.7-73.7); Platelets 240 thou/uL (152-406); RBC Red Blood Cell Count 4.12 M/uL (4.33-5.43); Red Cell Distribution Width 14.6 % (12.1-15.2)
[2023-09-02 06:13] LABS: Anion Gap 8.3 mEq/L (5.0-15.0); Potassium 4.3 mEq/L (3.5-5.1)
--- NOTE | 2023-09-02 06:59 | P.PN ---
Subjective Date of Service: 09/03/23 Chief Complaint: Left foot pain Presented for wound on left foot, history of lymphedema, bilateral lower extremity edema No reported fever overnight, dressing to the left lower extremity changed daily by nurses, Pain control with as needed analgesia Patient verbalizes frustration due to chronic illness, re repeated admission - Physical Exam General: Alert, In no apparent distress, Oriented x3 HEENT: Atraumatic, Mucous membr. moist/pink, Other (Pupils are sluggish), EOMI, Sclerae nonicteric Neck: Supple, 2+ carotid pulse no bruit, No LAD, Without JVD or thyroid abnormality Respiratory: Clear to auscultation bilaterally, Normal air movement Cardiovascular: Regular rate/rhythm, Normal S1 S2, Systolic murmur Gastrointestinal: Normal bowel sounds, Soft and benign, Non-distended, No tenderness Musculoskeletal: No clubbing, Swelling Integumentary: Skin lesion, Tenderness/swelling, Erythema, Warmth, Other (Patient has multiple bullous lesions on the dorsal aspect of the left foot) covered with a dry dressing and Xeroform Neurological: Normal speech, Normal strength at 5/5 x4 extr, Normal tone, Normal affect, Other (Poor vision), Abnormal gait, Abnormal sensation (Diminished sensation in the bilateral feet) Lymphatics: No axilla or inguinal lymphadenopathy <Susan Mckeon - Last Filed: 09/03/23 08:22> Date of Service: 09/02/23 <Jame Alcantar - Last Filed: 09/06/23 11:43> Review of Systems per HPI <Susan Mckeon - Last Filed: 09/03/23 08:22> Physical Examination - Vital Signs Temperature: 98.9 F Blood Pressure: 139/84 Pulse: 98 Respirations: 18 Pulse Ox (%): 95 - Studies Microbiology Data (last 24 hrs): 08/29/23 20:47 Wound - Left Foot Gram Stain - Final 08/29/23 20:47 Wound - Left Foot Culture & Sensitivity - Final Enterobacter Cloacae Serratia Marcescens <Susan Mckeon - Last Filed: 09/03/23 08:22> Assessment And Plan - Plan Assessment plan Left lower extremity foot wound improving Venous stasis ulcer RLE Bullous lesion left lower extremity Lymphedema lower extremity Anasarca improving IV antibiotics vancomycin Merrem, as needed analgesics Wound care to to eval lower extremity Patient will need prolonged hospital care or placement at a longterm facility for prolonged wound care. We will continue with diuresing and antibiotics and Silvadene ointment to that left foot. Fall precaution, I's and O's Wound culture, blood culture lower extremity wound Infectious disease following left foot wound culture 08/28: Enterobacter cloacae and Serratia marcescens blood cultures 08/28: No growth to date Currently on Meropenem and Vancomycin (started 08/29) Recommend continuing with meropenem IV for 14 days. Continue Vancomycin for now, consider switching to Doxycycline PO tomorrow to complete remainder of antibiotic course wound care per wound care / surgery team. keep legs elevated. Monitor CBC, BMP and vanco troughs. Renally dose medications. strict blood glucose control continue supportive care No leukocytosis HFpEF continue with diuresing patient as tolerated. Continue with cardiac meds Albumin for hypotension, midodrine CKD stage III Avoid nephrotoxic medication Trend kidney function Uncontrolled hypertension Hyperlipidemia Chronic pain Resume home antihypertensive As needed analgesic Diabetes mellitus unknown control Educated on strict blood glucose control Sliding scale insulin, long-acting insulin Bipolar disorder Decreased vision, patient blind, fall precautions, supportive care Patient with bipolar disorder-will need to be on a mood stabilizer Onychomycosis Full code DVT Diet diabetic Disposition prior to admission Home with home health, patient will need longterm facility Discharge Plan: Home Critical Care: No Time Spent Managing PTS Care (In Minutes): 35 <Susan Mckeon - Last Filed: 09/03/23 08:22> - Current Problems (Diagnosis) (1) Bullous lesion Current Visit: Yes Status: Acute (2) Wound of foot Current Visit: Yes Status: Acute (3) Acquired lymphedema of leg Current Visit: No Status: Acute (4) Acute on chronic heart failure Current Visit: No Status: Acute (5) Anasarca Current Visit: No Status: Acute (6) CKD (chronic kidney disease) stage 3, GFR 30-59 ml/min Current Visit: No Status: Acute (7) Uncontrolled hypertension Current Visit: Yes Status: Acute (8) Type 2 diabetes mellitus Current Visit: Yes Status: Acute (9) Bipolar disorder Current Visit: Yes Status: Acute (10) Decreased vision Current Visit: Yes Status: Acute <Jame Alcantar - Last Filed: 09/06/23 11:43> Date of Service: 09/02/23 Patient was seen and examined. Events of the last 24 hours have been noted. Spoke with with JT regarding patient's clinical picture after evaluating and examining the patient independently. I performed a substantial part of the MDM during this patient's care today. I personally made or approved the documented management plan and acknowledge its risk of complications. I agree with the findings and documentation provided in the JT's notes. Patient doing well no new complaints. Plan of care as mentioned per JT note. <Jame Alcantar - Last Filed: 09/06/23 11:43>
--- NOTE | 2023-09-02 12:30 | P.PN ---
Date of Service: 09/02/23 Infectious Disease Progress Note CC: Left foot pain Subjective: In no apparent distress. (+) Left foot pain. No acute events overnight. Continue current plan of care. Physical Examination Temp Pulse Resp BP Pulse Ox 98.4 F 97 H 14 142/79 H 95 09/02/23 11:56 09/02/23 11:56 09/02/23 11:56 09/02/23 11:56 09/02/23 11:56 General: In no apparent distress, Oriented x3 HEENT: Atraumatic Respiratory: Clear to auscultation bilaterally, Normal air movement Cardiovascular: Regular rate/rhythm. BLE edema/lymphedema. Gastrointestinal: Normal bowel sounds, Soft and benign, Non-distended Integumentary: Left anterior lower leg venous ulcer full thickness. Left lateral ankle venous ulcer full thickness. Left medial ankle venous ulcer partial thickness. Blisters left toes. Venous stasis ulcer RLE. Onychomycosis. Laboratory Data - Reviewed Microbiology Data - Reviewed Imagings Data: - Reviewed Medications List: - Reviewed Assessment and Plan Problem List LLE Cellulitis Lymphedema Diabetes Mellitus type II Hypertension Hyperlipidemia Metabolic Syndrome CKD stage III Bipolar Disorder Venous stasis ulcers Cellulitis of Left Lower Extremity Lymphedema - left foot wound culture 08/28: Enterobacter cloacae and Serratia marcescens - blood cultures 08/28: No growth to date - XR left foot, tib fib 08/28: "No acute osseous findings" - Venous study 08/28: "IMPRESSION: Left lower extremity: Monophasic waveforms throughout the left lower extremity could be secondary to a moderate to severe inflow stenosis proximally such as at the level of the iliac arteries. Right lower extremity: Monophasic waveforms within the posterior tibial artery consistent with a moderate to severe stenosis. Multiphasic waveforms otherwise in the right lower extremity" - Currently on Meropenem and Vancomycin (started 08/29) No leukocytosis Afebrile Recommendations - Cellulitis: Continue antibiotic therapy for 14 days (08/29-09/12). - Continue Meropenem - Currently on Vancomycin day 5, consider switch to Doxycycline 100mg PO BID to complete remainder of antibiotic course - wound care per wound care / surgery team. keep legs elevated. - Monitor CBC, BMP . Renally dose medications. - strict blood glucose control Case discussed with Iman Child
[2023-09-02] MEDS: HYDRALAZINE HCL 20 MG/ML VIAL IV PRN (23:37)
[2023-09-03 04:36] LABS: Absolute Eosinophils 0.4 K/uL (0-0.5); Absolute Lymphocytes (CBC) 1.1 K/uL (0.7-4.9); Absolute Monocytes 0.6 K/uL (0.1-1.3); Absolute Neutrophil 3.7 K/uL (1.8-8.0); Basophils % 0.7 % (0-1.3); Eosinophils % 6.4 % (0-4.4); Hematocrit 35.5 % (39.6-49.0); Hemoglobin 11.7 g/dL (13.6-17.9); Lymphocytes % 18.2 % (15.3-44.8); MCH 27.7 pg (27.0-35.0); MCV 83.7 fL (80-100); MPV 7.5 fL (7.6-11.3); Monocytes % 11.1 % (3.3-12.3); Neutrophils % 63.6 % (41.7-73.7); Platelets 275 thou/uL (152-406); RBC Red Blood Cell Count 4.24 M/uL (4.33-5.43); Red Cell Distribution Width 14.5 % (12.1-15.2)
[2023-09-03 04:54] LABS: Anion Gap 8.5 mEq/L (5.0-15.0); Potassium 4.5 mEq/L (3.5-5.1)
--- NOTE | 2023-09-03 08:23 | P.PN ---
Subjective Date of Service: 09/03/23 Chief Complaint: Left foot pain Presented for wound on left foot, history of lymphedema, bilateral lower extremity edema No reported fever overnight, dressing to the left lower extremity changed daily by nurses, Pain control with as needed analgesia Patient verbalizes frustration due to chronic illness, re repeated admission PT consulted to ambulate pt - Physical Exam General: Alert, In no apparent distress, Oriented x3 HEENT: Atraumatic, Mucous membr. moist/pink, Other (Pupils are sluggish), EOMI, Sclerae nonicteric Neck: Supple, 2+ carotid pulse no bruit, No LAD, Without JVD or thyroid abnormality Respiratory: Clear to auscultation bilaterally, Normal air movement Cardiovascular: Regular rate/rhythm, Normal S1 S2, Systolic murmur Gastrointestinal: Normal bowel sounds, Soft and benign, Non-distended, No tenderness Musculoskeletal: No clubbing, Swelling Integumentary: Skin lesion, Tenderness/swelling, Erythema, Warmth, Other (Patient has multiple bullous lesions on the dorsal aspect of the left foot) covered with a dry dressing and Xeroform Neurological: Normal speech, Normal strength at 5/5 x4 extr, Normal tone, Normal affect, Other (Poor vision), Abnormal gait, Abnormal sensation (Diminished sensation in the bilateral feet) Lymphatics: No axilla or inguinal lymphadenopathy <Susan Mckeon - Last Filed: 09/03/23 15:45> Date of Service: 09/03/23 <Jame Alcantar - Last Filed: 09/06/23 11:44> Physical Examination - Vital Signs Temperature: 98.9 F Blood Pressure: 139/84 Pulse: 98 Respirations: 18 Pulse Ox (%): 95 <Susan Mckeon - Last Filed: 09/03/23 15:45> Assessment And Plan - Plan Assessment plan Left lower extremity foot wound improving Venous stasis ulcer RLE Bullous lesion left lower extremity Lymphedema lower extremity Anasarca improving IV antibiotics vancomycin Merrem, as needed analgesics Wound care to to eval lower extremity Patient will need prolonged hospital care or placement at a retirement facility for prolonged wound care. We will continue with diuresing and antibiotics and Silvadene ointment to that left foot. Fall precaution, I's and O's Wound culture, blood culture lower extremity wound Infectious disease following left foot wound culture 08/28: Enterobacter cloacae and Serratia marcescens blood cultures 08/28: No growth to date Currently on Meropenem and Vancomycin (started 08/29) Recommend continuing with meropenem IV for 14 days. Continue Vancomycin for now, consider switching to Doxycycline PO tomorrow to complete remainder of antibiotic course wound care per wound care / surgery team. keep legs elevated. Monitor CBC, BMP and vanco troughs. Renally dose medications. strict blood glucose control continue supportive care No leukocytosis HFpEF continue with diuresing patient as tolerated. Continue with cardiac meds Albumin for hypotension, midodrine CKD stage III Avoid nephrotoxic medication Trend kidney function Uncontrolled hypertension Hyperlipidemia Chronic pain Resume home antihypertensive As needed analgesic Diabetes mellitus unknown control Educated on strict blood glucose control Sliding scale insulin, long-acting insulin Bipolar disorder Decreased vision, patient blind, fall precautions, supportive care Patient with bipolar disorder-will need to be on a mood stabilizer Onychomycosis Full code DVT Diet diabetic Disposition prior to admission Home with home health, patient will need retirement facility Discharge Plan: Home - Code Status/Comfort Care Code Status: Full Code Time Spent Managing PTS Care (In Minutes): 30 <Susan Mckeon - Last Filed: 09/03/23 15:45> - Current Problems (Diagnosis) (1) Bullous lesion Current Visit: Yes Status: Acute (2) Wound of foot Current Visit: Yes Status: Acute (3) Acquired lymphedema of leg Current Visit: No Status: Acute (4) Acute on chronic heart failure Current Visit: No Status: Acute (5) Anasarca Current Visit: No Status: Acute (6) CKD (chronic kidney disease) stage 3, GFR 30-59 ml/min Current Visit: No Status: Acute (7) Uncontrolled hypertension Current Visit: Yes Status: Acute (8) Type 2 diabetes mellitus Current Visit: Yes Status: Acute (9) Bipolar disorder Current Visit: Yes Status: Acute (10) Decreased vision Current Visit: Yes Status: Acute <Jame Alcantar - Last Filed: 09/06/23 11:44> Date of Service: 09/03/23 Patient was seen and examined. Events of the last 24 hours have been noted. Spoke with with JT regarding patient's clinical picture after evaluating and examining the patient independently. I performed a substantial part of the MDM during this patient's care today. I personally made or approved the documented management plan and acknowledge its risk of complications. I agree with the findings and documentation provided in the JT's notes. Patient is doing well no new complaints. Clinical symptoms are stable. Patient wanting to try to get to retirement facility at [facility]. <Jame Alcantar - Last Filed: 09/06/23 11:44>
[2023-09-03 10:38] VITALS: O2SAT 97
--- NOTE | 2023-09-03 12:52 | P.PN ---
Date of Service: 09/03/23 Infectious Disease Progress Note Chief Complaint: Left foot pain Subjective: No acute events overnight. In no apparent distress. reports LLE pain, otherwise no new/worsening complaints. Physical Examination Temp Pulse Resp BP Pulse Ox 98.9 F 98 H 18 139/84 97 09/03/23 08:23 09/03/23 08:23 09/03/23 08:46 09/03/23 08:23 09/03/23 08:46 General: In no apparent distress, Oriented x3 HEENT: Atraumatic Respiratory: Clear to auscultation bilaterally, Normal air movement Cardiovascular: Regular rate/rhythm. BLE edema/lymphedema. Gastrointestinal: Normal bowel sounds, Soft and benign, Non-distended Integumentary: Venous ulcers Left anterior lower leg, Left lateral ankle , Left medial ankle, right Anterior lower leg. Onychomycosis. Laboratory Data - Reviewed Microbiology Data - Reviewed Imagings Data: - Reviewed Medications List: Acetaminophen (Acetaminophen 500 Mg Tab) 500 mg PO Q6H PRN PRN Reason: pain/fever Heparin Sodium (Porcine) (Heparin 5000 Unit/Ml 1 Ml Vial) 5,000 unit SQ Q12HR [facility] Last Admin: 09/03/23 08:42 Dose: 5,000 unit Hydralazine HCl (Hydralazine Hcl 20 Mg/Ml Vial) 10 mg IV Q4HP PRN PRN Reason: Goal to achieve SBP in comment Last Admin: 09/02/23 23:37 Dose: 10 mg Hydromorphone HCl (Hydromorphone Hcl 0.5 Mg/0.5 Ml Inj) 0.5 mg IV Q4H PRN PRN Reason: Pain scale 8-10 (Severe) Last Admin: 09/03/23 08:46 Dose: 0.5 mg Meropenem 1,000 mg/ Sodium (Chloride) 100 mls @ 200 mls/hr IV Q8HR [facility] Last Admin: 09/03/23 08:42 Dose: 100 mls Vancomycin HCl 1.25 gm/ Sodium (Chloride) 250 mls @ 166.667 mls/hr IVPB Q24H [facility]; Protocol Last Admin: 09/02/23 21:32 Dose: 250 mls Insulin Glargine (Insulin Glargine 100 Unit/Ml) 16 unit SQ DAILY [facility] Last Admin: 09/03/23 08:43 Dose: 16 unit Lorazepam (Lorazepam 2 Mg/Ml Vial) 0.5 mg IV Q12H PRN PRN Reason: ANXIETY Last Admin: 09/02/23 21:44 Dose: 0.5 mg Losartan Potassium (Losartan Potassium 50 Mg Tablet) 50 mg PO BID 6AM 6PM [facility] Last Admin: 09/03/23 05:55 Dose: 50 mg Metoprolol Tartrate (Metoprolol Tar 50 Mg Tab) 50 mg PO BID 6AM 6PM [facility] Last Admin: 09/03/23 05:54 Dose: 50 mg Ondansetron HCl (Ondansetron 4 Mg/2 Ml Vial) 4 mg IV Q4H PRN PRN Reason: NAUSEA / VOMITING Silver Sulfadiazine (Silver Sulfadiazine 1% 50 Gm) 1 appl TOP BID [facility] Last Admin: 09/03/23 08:43 Dose: 1 appl Assessment and Plan Problem List LLE Cellulitis Lymphedema Diabetes Mellitus type II Hypertension Hyperlipidemia Metabolic Syndrome CKD stage III Bipolar Disorder Venous stasis ulcers Cellulitis of Left Lower Extremity Lymphedema - left foot wound culture 08/28: Enterobacter cloacae and Serratia marcescens - blood cultures 08/28: No growth to date - XR left foot, tib fib 08/28: "No acute osseous findings" - Venous study 08/28: "IMPRESSION: Left lower extremity: Monophasic waveforms throughout the left lower extremity could be secondary to a moderate to severe inflow stenosis proximally such as at the level of the iliac arteries. Right lower extremity: Monophasic waveforms within the posterior tibial artery consistent with a moderate to severe stenosis. Multiphasic waveforms otherwise in the right lower extremity" - Currently on Meropenem and Vancomycin (started 08/29) No leukocytosis Afebrile Recommendations - Cellulitis: Continue antibiotic therapy for 14 days (08/29-09/12). - Continue Meropenem - Currently on Vancomycin day 6; consider switch to Doxycycline 100mg PO BID to complete remainder of antibiotic course - lymphedema: continue diuretics - wound care per wound care / surgery team. keep legs elevated. - Monitor CBC, BMP . Renally dose medications. - strict blood glucose control Patient would benefit from SNF placement for continued IV antibiotics and wound care. CM/SS following. Case discussed with Iman Child
[2023-09-03] MEDS: ACETAMINOPHEN 500 MG TAB PO PRN (16:17)
[2023-09-04 03:56] LABS: Absolute Eosinophils 0.4 K/uL (0-0.5); Absolute Lymphocytes (CBC) 0.9 K/uL (0.7-4.9); Absolute Monocytes 0.6 K/uL (0.1-1.3); Absolute Neutrophil 2.7 K/uL (1.8-8.0); Basophils % 0.9 % (0-1.3); Eosinophils % 7.8 % (0-4.4); Hematocrit 34.6 % (39.6-49.0); Hemoglobin 11.5 g/dL (13.6-17.9); Lymphocytes % 19.9 % (15.3-44.8); MCH 27.6 pg (27.0-35.0); MCHC 33.3 g/dL (32.0-36.0); MPV 7.5 fL (7.6-11.3); Neutrophils % 59.4 % (41.7-73.7); Platelets 266 thou/uL (152-406); RBC Red Blood Cell Count 4.17 M/uL (4.33-5.43); Red Cell Distribution Width 14.5 % (12.1-15.2)
[2023-09-04 04:11] LABS: Anion Gap 6.3 mEq/L (5.0-15.0); Potassium 4.3 mEq/L (3.5-5.1)
--- NOTE | 2023-09-04 07:46 | P.PN ---
Subjective Date of Service: 09/05/23 Chief Complaint: Left foot pain Presented for wound on left foot, history of lymphedema, bilateral lower extremity edema No reported fever overnight, dressing to the left lower extremity changed daily by nurses, Pain control with as needed analgesia Patient verbalizes frustration due to chronic illness, re repeated admission PT consulted to ambulate pt - Physical Exam General: Alert, In no apparent distress, Oriented x3 HEENT: Atraumatic, Mucous membr. moist/pink, Other (Pupils are sluggish), EOMI, Sclerae nonicteric Neck: Supple, 2+ carotid pulse no bruit, No LAD, Without JVD or thyroid abnormality Respiratory: Clear to auscultation bilaterally, Normal air movement Cardiovascular: Regular rate/rhythm, Normal S1 S2, Systolic murmur Gastrointestinal: Normal bowel sounds, Soft and benign, Non-distended, No tenderness Musculoskeletal: No clubbing, Swelling Integumentary: Skin lesion, Tenderness/swelling, Erythema, Warmth, Other (Patient has multiple bullous lesions on the dorsal aspect of the left foot) covered with a dry dressing and Xeroform Neurological: Normal speech, Normal strength at 5/5 x4 extr, Normal tone, Normal affect, Other (Poor vision), Abnormal gait, Abnormal sensation (Diminished sensation in the bilateral feet) Lymphatics: No axilla or inguinal lymphadenopathy <Susan Mckeon - Last Filed: 09/05/23 07:21> Date of Service: 09/04/23 <Jame Alcantar - Last Filed: 09/06/23 11:45> Review of Systems per HPI <Susan Mckeon - Last Filed: 09/05/23 07:21> Physical Examination - Vital Signs Temperature: 98.1 F Blood Pressure: 162/100 Pulse: 98 Respirations: 18 Pulse Ox (%): 96 - Studies Microbiology Data (last 24 hrs): 08/29/23 19:15 Blood - Blood Aerobic Blood Culture - Final No growth in 5 days. 08/29/23 19:15 Blood - Blood Anaerobic Blood Culture - Final No growth in 5 days. 08/29/23 19:30 Blood - Blood Aerobic Blood Culture - Final No growth in 5 days. 08/29/23 19:30 Blood - Blood Anaerobic Blood Culture - Final No growth in 5 days. <Susan Mckeon - Last Filed: 09/05/23 07:21> Assessment And Plan - Plan Assessment plan Left lower extremity foot wound improving Venous stasis ulcer RLE Bullous lesion left lower extremity Lymphedema lower extremity Anasarca improving IV antibiotics vancomycin Merrem, as needed analgesics Wound care to to eval lower extremity Patient will need prolonged hospital care or placement at a senior living facility for prolonged wound care. We will continue with diuresing and antibiotics and Silvadene ointment to that left foot. Fall precaution, I's and O's Wound culture, blood culture lower extremity wound Infectious disease following left foot wound culture 08/28: Enterobacter cloacae and Serratia marcescens blood cultures 08/28: No growth to date Currently on Meropenem and Vancomycin (started 08/29) Recommend continuing with meropenem IV for 14 days. Continue Vancomycin for now, consider switching to Doxycycline PO tomorrow to complete remainder of antibiotic course wound care per wound care / surgery team. keep legs elevated. Monitor CBC, BMP and vanco troughs. Renally dose medications. strict blood glucose control continue supportive care [facility] she is available for any dc planning needs. [phone] 09/01 Patient reluctant to SNF referral-[facility] sent [facility] closest listed in-network SNF through his insurance provider. Reminded the patient that sending the referral will allow further benefit verification and confirmation of acceptance/bed availability at the facility. The patient stated that he is "still looking into things about [facility]" and he is "not ready for a referral to be sent today." patient does not have active/consistent PCP HFpEF continue with diuresing patient as tolerated. Continue with cardiac meds Albumin for hypotension, midodrine CKD stage III Avoid nephrotoxic medication Trend kidney function Uncontrolled hypertension Hyperlipidemia Chronic pain Resume home antihypertensive As needed analgesic Diabetes mellitus unknown control Educated on strict blood glucose control Sliding scale insulin, long-acting insulin Bipolar disorder Decreased vision, patient blind, fall precautions, supportive care Patient with bipolar disorder-will need to be on a mood stabilizer Onychomycosis Full code DVT Diet diabetic Disposition prior to admission Home with home health, patient will need senior living facility Discharge Plan: Home - Code Status/Comfort Care Code Status: Full Code Critical Care: No Time Spent Managing PTS Care (In Minutes): 35 <Susan Mckeon - Last Filed: 09/05/23 07:21> - Current Problems (Diagnosis) (1) Bullous lesion Current Visit: Yes Status: Acute (2) Wound of foot Current Visit: Yes Status: Acute (3) Acquired lymphedema of leg Current Visit: No Status: Acute (4) Acute on chronic heart failure Current Visit: No Status: Acute (5) Anasarca Current Visit: No Status: Acute (6) CKD (chronic kidney disease) stage 3, GFR 30-59 ml/min Current Visit: No Status: Acute (7) Uncontrolled hypertension Current Visit: Yes Status: Acute (8) Type 2 diabetes mellitus Current Visit: Yes Status: Acute (9) Bipolar disorder Current Visit: Yes Status: Acute (10) Decreased vision Current Visit: Yes Status: Acute - Plan Agree with plan of care as mentioned above. Discussed with patient regarding transfer to a senior living facility. Patient does not really have a lot of care at home and he has a hard time seeing. Anticipate discharge over the next 3 to 4 days working on discharge planning. <Jame Alcantar - Last Filed: 09/06/23 11:45> Date of Service: 09/04/23 Patient was seen and examined. Events of the last 24 hours have been noted. Spoke with with JT regarding patient's clinical picture after evaluating and examining the patient independently. I performed a substantial part of the MDM during this patient's care today. I personally made or approved the documented management plan and acknowledge its risk of complications. I agree with the findings and documentation provided in the JT's notes. Patient seen and examined. Doing well no new complaints. Complaining of some pain in the right leg. Otherwise, no new complaints. <Jame Alcantar - Last Filed: 09/06/23 11:45>
[2023-09-04] MEDS: FUROSEMIDE 40 MG/4 ML VIAL IV ONE (14:34)
[2023-09-04] MEDS: ALBUMIN HUMAN 25% 100 ML IV ONE (14:34)
--- NOTE | 2023-09-05 07:23 | P.PN ---
Subjective Date of Service: 09/05/23 Chief Complaint: Left foot pain Presented for wound on left foot, history of lymphedema, bilateral lower extremity edema No reported fever overnight, dressing to the left lower extremity changed daily by nurses, Pain control with as needed analgesia Patient verbalizes frustration due to chronic illness, re repeated admission PT consulted to ambulate pt Plan to discharge home with home health versus [facility] facility ([facility] [facility] not in net work) - Physical Exam General: Alert, In no apparent distress, Oriented x3 HEENT: Atraumatic, Mucous membr. moist/pink, Other (Pupils are sluggish), EOMI, Sclerae nonicteric Neck: Supple, 2+ carotid pulse no bruit, No LAD, Without JVD or thyroid abnormality Respiratory: Clear to auscultation bilaterally, Normal air movement Cardiovascular: Regular rate/rhythm, Normal S1 S2, Systolic murmur Gastrointestinal: Normal bowel sounds, Soft and benign, Non-distended, No tenderness Musculoskeletal: No clubbing, Swelling Integumentary: Skin lesion, Tenderness/swelling, Erythema, Warmth, Other (Patient has multiple bullous lesions on the dorsal aspect of the left foot) covered with a dry dressing and Xeroform Neurological: Normal speech, Normal strength at 5/5 x4 extr, Normal tone, Normal affect, Other (Poor vision), Abnormal gait, Abnormal sensation (Diminished sensation in the bilateral feet) Lymphatics: No axilla or inguinal lymphadenopathy <Susan Mckeon - Last Filed: 09/05/23 09:16> Date of Service: 09/06/23 <Jame Alcantar - Last Filed: 09/06/23 11:46> Review of Systems per HPI <Susan Mckeon - Last Filed: 09/05/23 09:16> Physical Examination - Vital Signs Temperature: 98.1 F Blood Pressure: 162/100 Pulse: 98 Respirations: 18 Pulse Ox (%): 96 <Susan Mckeon - Last Filed: 09/05/23 09:16> Assessment And Plan - Plan Assessment plan Left lower extremity foot wound improving Venous stasis ulcer RLE Bullous lesion left lower extremity Lymphedema lower extremity Anasarca improving IV antibiotics vancomycin Merrem, as needed analgesics Wound care to to eval lower extremity Patient will need prolonged hospital care or placement at a [facility] facility for prolonged wound care. We will continue with diuresing and antibiotics and Silvadene ointment to that left foot. Fall precaution, I's and O's Wound culture, blood culture lower extremity wound Infectious disease following left foot wound culture 08/28: Enterobacter cloacae and Serratia marcescens blood cultures 08/28: No growth to date Currently on Meropenem and Vancomycin (started 08/29) Recommend continuing with meropenem IV for 14 days. Continue Vancomycin for now, consider switching to Doxycycline PO tomorrow to complete remainder of antibiotic course wound care per wound care / surgery team. keep legs elevated. Monitor CBC, BMP and vanco troughs. Renally dose medications. strict blood glucose control continue supportive care [facility] planning needs. [phone] 09/01 Patient reluctant to SNF referral-[facility] sent [facility], closest listed in-network SNF through his insurance provider. Reminded the patient that sending the referral will allow further benefit verification and confirmation of acceptance/bed availability at the facility. The patient stated that he is "still looking into things about [facility]" and he is "not ready for a referral to be sent today." patient does not have active/consistent PCP HFpEF continue with diuresing patient as tolerated. Continue with cardiac meds Albumin for hypotension, midodrine CKD stage III Avoid nephrotoxic medication Trend kidney function Uncontrolled hypertension Hyperlipidemia Chronic pain Resume home antihypertensive As needed analgesic Diabetes mellitus unknown control Educated on strict blood glucose control Sliding scale insulin, long-acting insulin Bipolar disorder Decreased vision, patient blind, fall precautions, supportive care Patient with bipolar disorder-will need to be on a mood stabilizer Onychomycosis Full code DVT Diet diabetic Disposition prior to admission Home with home health, patient will need [facility] facility Discharge Plan: Home Critical Care: No Time Spent Managing PTS Care (In Minutes): 35 <Susan Mckeon - Last Filed: 09/05/23 09:16> - Current Problems (Diagnosis) (1) Bullous lesion Current Visit: Yes Status: Acute (2) Wound of foot Current Visit: Yes Status: Acute (3) Acquired lymphedema of leg Current Visit: No Status: Acute (4) Acute on chronic heart failure Current Visit: No Status: Acute (5) Anasarca Current Visit: No Status: Acute (6) CKD (chronic kidney disease) stage 3, GFR 30-59 ml/min Current Visit: No Status: Acute (7) Uncontrolled hypertension Current Visit: Yes Status: Acute (8) Type 2 diabetes mellitus Current Visit: Yes Status: Acute (9) Bipolar disorder Current Visit: Yes Status: Acute (10) Decreased vision Current Visit: Yes Status: Acute <Jame Alcantar - Last Filed: 09/06/23 11:46> Date of Service: 09/05/23 Patient was seen and examined. Events of the last 24 hours have been noted. Spoke with with JT regarding patient's clinical picture after evaluating and examining the patient independently. I performed a substantial part of the MDM during this patient's care today. I personally made or approved the documented management plan and acknowledge its risk of complications. I agree with the findings and documentation provided in the JT's notes. Patient upset that nursing staff were not let him get out of bed on his own. Patient ambulates by himself at home. I told him that his activity level will be gauged on what he is able to do for himself. We will limit his activity unless he feels like he is getting weaker. He has been ambulating to the bathroom on his own. Continue with plan of care as mentioned. Awaiting for [facility] facility placement. Awaiting for approval. <Jame Alcantar - Last Filed: 09/06/23 11:46>
[2023-09-05] MEDS: FUROSEMIDE 40 MG/4 ML VIAL IV SCH (08:02)
[2023-09-05] MEDS: HEPARIN 5000 UNIT/ML 1 ML VIAL ONE (21:58)
[2023-09-05] MEDS: HEPARIN 5000 UNIT/ML 1 ML VIAL SQ SCH (22:50)
[2023-09-06 06:44] LABS: Absolute Basophils 0.1 K/uL (0-0.5); Absolute Eosinophils 0.3 K/uL (0-0.5); Absolute Monocytes 0.6 K/uL (0.1-1.3); Absolute Neutrophil 5.2 K/uL (1.8-8.0); Eosinophils % 4.4 % (0-4.4); Hematocrit 34.6 % (39.6-49.0); Hemoglobin 11.5 g/dL (13.6-17.9); Lymphocytes % 13.8 % (15.3-44.8); MCH 27.6 pg (27.0-35.0); MCHC 33.1 g/dL (32.0-36.0); MCV 83.3 fL (80-100); MPV 7.3 fL (7.6-11.3); Monocytes % 8.9 % (3.3-12.3); Neutrophils % 71.9 % (41.7-73.7); Platelets 300 thou/uL (152-406); RBC Red Blood Cell Count 4.16 M/uL (4.33-5.43); Red Cell Distribution Width 14.4 % (12.1-15.2)
[2023-09-06 07:10] LABS: Albumin 1.9 g/dL (3.4-5.0); Albumin/Globulin Ratio 0.5 (1.1-1.8); Anion Gap 8.3 mEq/L (5.0-15.0); Bilirubin Total 0.6 mg/dL (0.2-1.0); Globulin 3.7 g/dL (2.3-3.5); Magnesium 1.8 mg/dL (1.6-2.4); Phosphorus 3.8 mg/dL (2.5-4.9); Potassium 4.3 mEq/L (3.5-5.1); Protein, Total 5.6 g/dL (6.4-8.2)
--- NOTE | 2023-09-06 11:40 | P.PN ---
Subjective Date of Service: 09/01/23 Patient clinically doing well; no new complaints. Continue with wound care. Review of Systems 10-point ROS is otherwise unremarkable Physical Examination - Vital Signs Temperature: 100 F Blood Pressure: 140/90 Pulse: 89 Respirations: 17 Pulse Ox (%): 97 - Physical Exam General: Alert, In no apparent distress, Oriented x3 Respiratory: Clear to auscultation bilaterally, Normal air movement Cardiovascular: Regular rate/rhythm, Normal S1 S2 Gastrointestinal: Normal bowel sounds, Soft and benign, No tenderness Integumentary: Skin lesion, Erythema, Other (blistering) Neurological: Sensation intact, Cranial nerves 3-12 intact - Studies Medications List Reviewed: Yes Assessment & Plan - Problems (Diagnosis) (1) Bullous lesion Current Visit: Yes Status: Acute (2) Wound of foot Current Visit: Yes Status: Acute (3) Acquired lymphedema of leg Current Visit: No Status: Acute (4) Acute on chronic heart failure Current Visit: No Status: Acute (5) Anasarca Current Visit: No Status: Acute (6) CKD (chronic kidney disease) stage 3, GFR 30-59 ml/min Current Visit: No Status: Acute (7) Uncontrolled hypertension Current Visit: Yes Status: Acute (8) Type 2 diabetes mellitus Current Visit: Yes Status: Acute (9) Bipolar disorder Current Visit: Yes Status: Acute (10) Decreased vision Current Visit: Yes Status: Acute - Plan PLAN: 1. Continue with IV antibiotic 2. Continue with local wound care 3. Wound care consultation/surgical consultation appreciated 4. Gentle IV hydration 5. Monitor CBC 6. Strict blood sugar monitoring 7. Pain control 8. Arranging for senior living facility placement 9. GI and DVT prophylaxis Discharge Plan: [facility] Plan to discharge in: Greater than 2 days - Advance Directives Does patient have a Living Will: No Does patient have a Durable POA for Healthcare: No - Code Status/Comfort Care Code Status: Full Code Critical Care: No Time Spent Managing PTS Care (In Minutes): 35
--- NOTE | 2023-09-06 12:17 | P.DS ---
Admission Date: 08/30/23 Discharge Date: 09/06/23 Reason for Admission: Left foot pain Consultations: Infectious disease: Dr. Fallon Brief History of Present Illness: Patient is a 52-year-old gentleman came to the hospital with pain in the left foot. Patient has a history of lymphedema, diabetes, congestive heart failure and hypertension who presents to the emergency room with pain in the left foot. Patient has an open wound to the left foot. Patient uses his own wraps and Curlex to wrap his legs. He thinks that keeps his lymphedema under control. However, he had the wraps really tight on the left foot and he kept it on for 3 days. The left foot looks like it was swollen quite extensively and the ankles were indented. The swelling above the wraps has significant edema. Patient had multiple blisters on the toes of the left foot and it appears that he had a large blister on the dorsal aspect of the left foot that appeared to have come off. Patient's wound is draining quite extensively. Patient will need wound care to the left foot. Because of patient's history of lymphedema he will need extensive diuresing to try to get the swelling down to allow the left foot wound to heal. Will get wound healing consultation as well as general surgery consultation. Will get an infectious disease consultation and will get cultures placed. Patient will need to be evaluated for inpatient hospitalization and wound care. On patient's last admission, case management was able to identify that patient had insurance. Patient's insurance was out of network to our hospital and I requested that emergency room providers speak with patient and explained to him the situation regarding him being out of network. I was informed that patient refused transfer. Emergency room physicians requested for me to see the patient . Spoke to the patient regarding what was documented on his last admission regarding his benefits and the hospitals that were in network. However, he did not want to talk about this because of the stress that he was dealing with as he was trying to get his disability. I'm not sure if he is able to make a sound decision right now as he appears to be really upset. He said transferring was too much to think about at this time. Will have case management talk with the patient in the morning. Patient will need wound care and will need to get patient set up with antibiotics. Cultures are pending. Patient will probably benefit from a [facility] facility placement as he has multiple wounds on the left foot. Will go ahead and admit the patient to the hospital for inpatient hospitalization, and will await for recommendations from our consultants. Will also begin working on discharge planning at this time. Hospital Course: Mr. Galvan continues to be frustrated regarding chronic illness. He has been seen by ID and deemed able to go to [facility] facility to finish IV antibiotics and wound care. He has been ambulatory to the bathroom on his own. He will transition to doxycycline po in place of Vancomycin and add Levaquin. He will be discharged to [facility] for wound care. <Symone Almeida - Last Filed: 09/06/23 14:45> Admission Date: 08/30/23 Discharge Date: 09/06/23 Hospital Course: Pt seen and examined. I agree with the note by the DOUBLE NEEDLE OPERATOR. Pt's insurance approved placement in [facility] for wound care. Pt will be discharged with levaquin 500mg po daily and Doxycycline 100mg po BID for 1 week. He was also discharged with lasix 40mg po BID and prn pain meds. He was advised to continue wound care. Before the discharge, Teresita Saxena was called because pt was upset with his nurse due to misunderstanding. Pt refused to speak to the nurse in order to confirm his identify before administering meds. Pt went into the rest room and refused to speak to the nursing team. I spoke to the pt and calmed him down. Pt later refused to be discharged, but I advised him there was no need for further hospitalization because he can continue the same care at the [facility]. The hospital called security team him to escort him out of the hospital . <Dong Gomez - Last Filed: 09/06/23 21:13> Disposition: TRANSFER TO [facility] Discharge Condition: GOOD Vital Signs/Physical Exam: Temp Pulse Resp BP Pulse Ox 100 F 89 17 140/90 97 09/06/23 11:40 09/06/23 11:40 09/06/23 11:40 09/06/23 11:40 09/06/23 11:40 General: Alert, In no apparent distress, Oriented x3 HEENT: Atraumatic Neck: 2+ carotid pulse no bruit Respiratory: Normal air movement Cardiovascular: Regular rate/rhythm, Other (lymphedema) Capillary refill: <2 Seconds Gastrointestinal: Soft and benign Musculoskeletal: No clubbing Integumentary: Other (extensive left lower extremity wounds, lower leg with some eschar appearing skin with tissue loss over dorsum of foot and toes) Neurological: Normal tone Lymphatics: No axilla or inguinal lymphadenopathy External genitalia: Deferred Rectal: Deferred Laboratory Data at Discharge: WBC 7.20 thou/uL (4.3-10.9) 09/06/23 06:18 Hgb 11.5 g/dL (13.6-17.9) L 09/06/23 06:18 Hct 34.6 % (39.6-49.0) L 09/06/23 06:18 Plt Count 300 thou/uL (152-406) 09/06/23 06:18 PT 12.1 SECONDS (9.5-12.5) 08/30/23 06:00 INR 1.10 08/30/23 06:00 APTT 33.0 SECONDS (24.3-36.9) 08/30/23 06:00 Sodium 139 mEq/L (136-145) 09/06/23 06:18 Potassium 4.3 mEq/L (3.5-5.1) 09/06/23 06:18 BUN 43 mg/dL (7-18) H 09/06/23 06:18 Creatinine 1.32 mg/dL (0.70-1.30) H 09/06/23 06:18 Glucose 134 mg/dL (74-106) H 09/06/23 06:18 Phosphorus 3.8 mg/dL (2.5-4.9) 09/06/23 06:18 Magnesium 1.8 mg/dL (1.6-2.4) 09/06/23 06:18 Total Bilirubin 0.6 mg/dL (0.2-1.0) 09/06/23 06:18 AST 21 U/L (15-37) 09/06/23 06:18 ALT 31 U/L (16-61) 09/06/23 06:18 Alkaline Phosphatase 55 U/L (45-117) 09/06/23 06:18 <Almeida,Symone Clive - Last Filed: 09/06/23 14:45> Vital Signs/Physical Exam: Temp Pulse Resp BP Pulse Ox 99.0 F 107 H 18 145/94 H 94 09/06/23 12:00 09/06/23 12:00 09/06/23 12:00 09/06/23 12:00 09/06/23 12:00 Laboratory Data at Discharge: WBC 7.20 thou/uL (4.3-10.9) 09/06/23 06:18 Hgb 11.5 g/dL (13.6-17.9) L 09/06/23 06:18 Hct 34.6 % (39.6-49.0) L 09/06/23 06:18 Plt Count 300 thou/uL (152-406) 09/06/23 06:18 PT 12.1 SECONDS (9.5-12.5) 08/30/23 06:00 INR 1.10 08/30/23 06:00 APTT 33.0 SECONDS (24.3-36.9) 08/30/23 06:00 Sodium 139 mEq/L (136-145) 09/06/23 06:18 Potassium 4.3 mEq/L (3.5-5.1) 09/06/23 06:18 BUN 43 mg/dL (7-18) H 09/06/23 06:18 Creatinine 1.32 mg/dL (0.70-1.30) H 09/06/23 06:18 Glucose 134 mg/dL (74-106) H 09/06/23 06:18 Phosphorus 3.8 mg/dL (2.5-4.9) 09/06/23 06:18 Magnesium 1.8 mg/dL (1.6-2.4) 09/06/23 06:18 Total Bilirubin 0.6 mg/dL (0.2-1.0) 09/06/23 06:18 AST 21 U/L (15-37) 09/06/23 06:18 ALT 31 U/L (16-61) 09/06/23 06:18 Alkaline Phosphatase 55 U/L (45-117) 09/06/23 06:18 <Dong Gomez - Last Filed: 09/06/23 21:13> Diet: ADA Activity: Ad iva <Almeida,Symone Clive - Last Filed: 09/06/23 14:45> <Dong Gomez - Last Filed: 09/06/23 21:13> Home Medications: Insulin Detemir [Levemir Flexpen] 16 units SQ DAILY 07/18/23 Insulin -Regular Human [Novolin -R*] See Protocol SQ ACHS ml 07/21/23 Insulin Glargine,Hum.rec.anlog [Semglee] 16 unit SQ DAILY 30 Days #100 ml 07/21/23 Losartan Potassium [Cozaar*] 100 mg PO BID 6AM 6PM 30 Days #30 mg 07/21/23 Metoprolol Tartrate [Lopressor*] 75 mg PO BID 6AM 6PM 30 Days #90 tab 07/21/23 Quetiapine Fumarate [Seroquel] 300 mg PO BEDTIME 30 Days #30 mg 07/21/23 hydroCHLOROthiazide [Hydrochlorothiazide] 25 mg PO Q48H 30 Days #30 mg 07/21/23 traMADol HCL [Ultram*] 50 mg PO TID PRN tab 07/21/23 Amino Acids/Protein Hydrolys [Pro-Stat Max Liquid Packet] 30 ml PO BID 30 Days #2 pkt 09/06/23 Doxycycline Hyclate 100 mg PO BID 7 Days #14 tab 09/06/23 Furosemide [Lasix] 40 mg PO BIDL 30 Days #60 tab 09/06/23 Hydrocodone 5/APAP 325 [[place] 5/325] 1 tab PO Q6H PRN 3 Days #12 tab 09/06/23 Silver Sulfadiazine Crm [Silvadene] 1 appl TOP BID 30 Days #1 tube 09/06/23 levoFLOXacin [Levaquin] 500 mg PO DAILY 7 Days #7 tab 09/06/23 New Medications: Doxycycline Hyclate 100 mg PO BID 7 Days #14 tab Furosemide [Lasix] 40 mg PO BIDL 30 Days #60 tab levoFLOXacin [Levaquin] 500 mg PO DAILY 7 Days #7 tab Hydrocodone 5/APAP 325 [[place] 5/325] 1 tab PO Q6H PRN 3 Days #12 tab PRN Reason: Pain Amino Acids/Protein Hydrolys [Pro-Stat Max Liquid Packet] 30 ml PO BID 30 Days #2 pkt Silver Sulfadiazine Crm [Silvadene] 1 appl TOP BID 30 Days #1 tube Physician Discharge Instructions: Continue wound care on outpt. Okay to [facility]E IV and DC to [facility] Doxy[facility]ine and Levaquin Follow-up with primary care provider in 1 to 2 weeks Follow-up with wound care in 1 to 2-week Please call the inpatient unit for any questions or concerns regarding hospital stay Return to the ER for worsening symptoms Followup: NONE,NONE [Primary Care Provider] -
[2023-09-06 13:43] VITALS: BP 145/94; TEMP 99
[2023-09-06] MEDS ORDERED: AMINO ACIDS/PROTEIN HYDROLYS 30 ML LIQUID.PKT PO SCH (21:00)
== END 2023-09-06 17:00 | disposition home or self-care (01) | DRG 602 ==
LOC: ER 19:07 → ERHOLD 08-30 03:16 → 4TH 08-30 11:17
PROVIDERS: ADMIT Hospitalist; ATTEND Hospitalist
DX: L03.116 Cellulitis of left lower limb (principal); I50.33 Acute on chronic diastolic (congestive) heart failure; I13.0 Hypertensive heart and chronic kidney disease with heart failure and stage 1 through stage 4 chronic kidney disease, or unspecified chronic kidney disease; L97.919 Non-pressure chronic ulcer of unspecified part of right lower leg with unspecified severity; N18.30 Chronic kidney disease, stage 3 unspecified; E11.22 Type 2 diabetes mellitus with diabetic chronic kidney disease; E11.319 Type 2 diabetes mellitus with unspecified diabetic retinopathy without macular edema; H54.8 Legal blindness, as defined in USA; E78.5 Hyperlipidemia, unspecified; F31.9 Bipolar disorder, unspecified; G89.29 Other chronic pain; I89.0 Lymphedema, not elsewhere classified; E88.810 Metabolic syndrome; I83.019 Varicose veins of right lower extremity with ulcer of unspecified site; I25.10 Atherosclerotic heart disease of native coronary artery without angina pectoris; I25.2 Old myocardial infarction; B35.1 Tinea unguium; B95.2 Enterococcus as the cause of diseases classified elsewhere; B96.89 Other specified bacterial agents as the cause of diseases classified elsewhere; R23.8 Other skin changes; Z79.4 Long term (current) use of insulin; Z95.5 Presence of coronary angioplasty implant and graft; Z79.899 Other long term (current) drug therapy; Z87.891 Personal history of nicotine dependence
CPT/HCPCS: 36415; 80048; 80053; 80202; 81001; 82947; 83605; 83735; 83880; 84100; 84145; 84484; 85025; 85610; 85730; 87040; 87070; 87077; 87186; 87205; 93005; 93925; 93970; 96361; 96365; 96367; 96375; 97161; 99285; J0360; J0692; J1170; J1644; J1940; J2185; J2405; J7030; J7040; J7050; P9047